=== PATIENT | male | born 1990 | race African-American/Black ===

== ENCOUNTER 2017-10-03 14:44 | Emergency (ER) | payer OTHER ==
[~2017-10-03] VITALS: Ht 185.4 cm; Wt 127.0 kg
[~2017-10-03 14:44] MED LIST: ACHD5005 PO; ALPR.5T PO; AZIT-21 PO; CEPH500C PO; CIPR500T4 PO; CYCL10TA9 PO; DICY20TA33 PO; GABA300C PO; HYDR-1231 PO; HYDR-3714 PO; HYDR-3729 PO; HYDR-757 PO; METR500T21 PO; ONDA4TAB8 PO; PRD20T PO; PRED-165; PRM25T PO; SULF1TAB35 PO; TRAM50TA2 PO
[2017-10-03 14:50] VITALS: BP 127/75
--- OUTSIDE RECORDS SUMMARY | 2017-10-03 14:50 | XMS REPORT | Referral Summary ---
Author Author [facility] Organization [facility] Address Unknown Phone Unavailable Care Team Providers Care Pet Caretaker Name Role Phone No PCP, Pt States PCP Encounter VC Date(s): 07/14/17 - 07/14/17 [facility] [address] [place] [address]- Encounter Diagnosis Presumed streptococcal pharyngitis (Discharge Diagnosis) - 07/14/17 Discharge Disposition: 01-Home or Self Care Attending Physician: Agusto Rudolph DO Admitting Physician: Agusto Rudolph DO Vital Signs Most recent to 1 oldest [Reference Range]: Temperature Oral 38.0 degC [35.8-37.3 degC] *HI* (07/14/17 11:03 AM) Peripheral Pulse 95 bpm Rate [60-100 bpm] (07/14/17 11:03 AM) Respiratory Rate 20 br/min [14-20 br/min] (07/14/17 11:03 AM) Blood Pressure 136/92 mmHg [90-140/60-90 mmHg] (07/14/17 11:03 AM) SpO2 98 % (07/14/17 11:03 AM) Problem List Condition Effective Dates Status Health Status Informant Hypertension(Confirm Active patient ed) Allergies, Adverse Reactions, Alerts No Known Allergies Medications amoxicillin 875 mg oral tablet 875 mg 1 tabs, Oral, BID, X 10 days, # 20 tabs, 0 Refill(s) Start Date: 07/14/17 Stop Date: 07/24/17 Status: Ordered Results No data available for this section Immunizations No data available for this section Procedures No data available for this section Social History Social History Type Response Smoking Status Never (less than 100 in lifetime) entered on: 04/10/17 Assessment and Plan No data available for this section
--- OUTSIDE RECORDS SUMMARY | 2017-10-03 14:50 | XMS REPORT ---
Author ARMIDA Nunez Organization [employer] Address Unknown Phone Unavailable Care Team Providers Care Pattern Checker Name Role Phone ARMIDA MENJIVAR CP Unavailable Allergies No Known Allergies Problems Problem Type Condition Code Onset Dates Condition Status Problem Diarrhea 787.91 Active Problem Generalized anxiety disorder 300.02 Active Problem Encounter for long-term (current) use of other medications V58.69 Active Problem Acute pharyngitis 462 Active Medications Medication Code System Code Instructions Start Date End Date Status Dosage Trazodone HCl [facility] [address]-13 50 MG Orally Once a day Apr 02, 2015 1 tablet at bedtime as needed Neurontin [facility] [address]-77 300 MG Orally Three times a day Apr 02, 2015 1 capsule Results No Known Results Summary Purpose [employer] Submission
--- OUTSIDE RECORDS SUMMARY | 2017-10-03 14:50 | XMS REPORT ---
Author Author ANTHONY NGO [facility] Address [address] [place] [address] Care Team Providers Care Manager Cable Name Role Phone ANTHONY NGO Unavailable PROBLEMS Type Condition ICD9-CM Code [id number] Code Onset Dates Condition Status SNOMED Code Problem Encounter for long-term (current) use of other medications V58.69 Active 915624540 Problem Diarrhea 787.91 Active 22368968 Problem Generalized anxiety disorder 300.02 Active 28618743 Problem Acute pharyngitis 462 Active 065999785 ALLERGIES Unknown Allergies SOCIAL HISTORY No smoking Hx information available PLAN OF CARE VITAL SIGNS MEDICATIONS Unknown Medications RESULTS No Results PROCEDURES No Known procedures IMMUNIZATIONS No Known Immunizations
--- OUTSIDE RECORDS SUMMARY | 2017-10-03 14:50 | XMS REPORT ---
Author Author Julia Gray Organization [facility] Address [address] [place] [id number] Care Team Providers Care Label Maker Name Role Phone Isaac Julia Unavailable PROBLEMS Type Condition ICD9-CM Code DQP75-TA Code Onset Dates Condition Status SNOMED Code Problem Borderline personality disorder F60.3 Active 68208481 Problem Substance abuse F19.10 Active 94098873 ALLERGIES No Information ENCOUNTERS Encounter Location Date Diagnosis [facility] [address] [place] [address] [phone] August, [facility] [address] [place] [address] [phone] Aug, Screening for metabolic disorder Z13.228 ; Screening for deficiency anemia Z13.0 and Screening for thyroid disorder Z13.29 [facility] [address] [place] [address] [phone] Aug, Borderline personality disorder F60.3 ; Substance abuse F19.10 ; Screening for metabolic disorder Z13.228 ; Screening for thyroid disorder Z13.29 and Screening for deficiency anemia Z13.0 [facility] [address] [place] [address] [phone] Aug, [facility] [address] [place] [address] [phone] May, Moderate recurrent major depression F33.1 [facility] [address] [place] [address] [phone] Aug, [facility] [address] [place] [address] [phone] Aug, [facility] [address] [place] [address] [phone] Aug, [facility] [address] [place] [address] [phone] Aug, [facility] [address] [place] [address] [phone] Jul, [facility] [address] [place] [address] [phone] Jul, [facility] [address] [place] [address] [phone] Jul, [facility] [address] [place] [address] [phone] Jun, [facility] [address] [place] [address] [phone] Jun, [facility] [address] [place] [address] [phone] Jun, IMMUNIZATIONS No Known Immunizations SOCIAL HISTORY Never Assessed REASON FOR VISIT aPPOINTMENT PLAN OF CARE VITAL SIGNS MEDICATIONS Unknown Medications RESULTS No Results PROCEDURES No Known procedures INSTRUCTIONS MEDICATIONS ADMINISTERED No Known Medications MEDICAL (GENERAL) HISTORY Type Description Date Medical History personality disorder Surgical History appendectomy ; 2007 Surgical History Surgery on 3rd metacarpal
--- OUTSIDE RECORDS SUMMARY | 2017-10-03 14:51 | XMS REPORT ---
Author ARMIDA Nunez Organization [employer] Address Unknown Phone Unavailable Care Team Providers Care Bead Filler Name Role Phone ARMIDA MENJIVAR CP Unavailable Allergies, Adverse Reactions, Alerts Substance Reaction Event Type N.K.D.A. Info Not Available Non Drug Allergy Problems Problem Type Condition Code Onset Dates Condition Status Problem Diarrhea 787.91 Active Problem Generalized anxiety disorder 300.02 Active Problem Encounter for long-term (current) use of other medications V58.69 Active Problem Acute pharyngitis 462 Active Assessment Neck pain, bilateral M54.2 Active Medications Medication Code System Code Instructions Start Date End Date Status Dosage Percocet [facility] [address]-71 5-325 MG Orally 4 times a day Mar 11, 2016 1 tablet as needed Cyclobenzaprine HCl [facility] [address]-47 10 mg Orally 2 times a day Mar 11, 2016 Apr 10, 2016 1 tablet PredniSONE [facility] [address]-65 20 mg Orally Once a day Mar 11, 2016 Mar 16, 2016 2 tablets Procedures Procedure Coding System Code Date Office Visit, Est Pt., Level 3 CPT-4 91526 Mar 11, 2016 Vital Signs Date/Time: Mar 11, 2016 Cardiac Monitoring Heart Rate 68 bpm Weight 254.8 lbs Height 72 in BMI 34.55 Index Blood Pressure Diastolic 78 mmHg Blood Pressure Systolic 110 mmHg Results No Known Results Summary Purpose [employer] Submission
--- OUTSIDE RECORDS SUMMARY | 2017-10-03 14:51 | XMS REPORT ---
Author ARMIDA Nunez Organization [employer] Address Unknown Phone Unavailable Care Team Providers Care Engineering Aid Name Role Phone ARMIDA MENJIVAR CP Unavailable Allergies No Known Allergies Problems Problem Type Condition Code Onset Dates Condition Status Problem Diarrhea 787.91 Active Problem Generalized anxiety disorder 300.02 Active Problem Encounter for long-term (current) use of other medications V58.69 Active Problem Acute pharyngitis 462 Active Medications Medication Code System Code Instructions Start Date End Date Status Dosage Trazodone HCl [facility] [address]-81 150 MG Orally Once a day Apr 02, 2015 1 tablet at bedtime as needed Results No Known Results Summary Purpose [employer] Submission
--- OUTSIDE RECORDS SUMMARY | 2017-10-03 14:51 | XMS REPORT | Referral Summary ---
Author Author [facility] Organization [facility] Address Unknown Phone Unavailable Care Team Providers Care Direct Marketing Executive Name Role Phone No PCP, Pt States PCP Encounter VC Date(s): 04/10/17 - 04/10/[address] [facility] [address] [place] [address] [place] Discharge Diagnosis: Boxer's fracture Discharge Disposition: 01-Home or Self Care Attending Physician: Matheus Madison MD Admitting Physician: Matheus Madison MD Vital Signs Most recent to 1 oldest [Reference Range]: Temperature Oral 36.9 degC [35.8-37.3 degC] (04/10/17 5:20 PM) Peripheral Pulse 76 bpm Rate [60-100 bpm] (04/10/17 5:20 PM) Respiratory Rate 20 br/min [14-20 br/min] (04/10/17 5:20 PM) Blood Pressure 134/79 mmHg [90-140/60-90 mmHg] (04/10/17 5:20 PM) SpO2 99 % (04/10/17 5:20 PM) Problem List Condition Effective Dates Status Health Status Informant Hypertension(Confirm Active patient ed) Allergies, Adverse Reactions, Alerts No Known Allergies Medications ibuprofen 600 mg oral tablet 600 mg 1 tabs, Oral, q8hr, sup md javi andrade, X 10 days, # 30 tabs, 0 Refill(s ) Start Date: 04/10/17 Stop Date: 04/20/17 Status: Ordered Keflex 500 mg oral capsule 500 mg 1 caps, Oral, q8hr, sup md javi andrade, X 5 days, # 15 caps, 0 Refill(s) Start Date: 04/10/17 Stop Date: 04/15/17 Status: Ordered Results No data available for this section Immunizations No data available for this section Procedures No data available for this section Social History Social History Type Response Smoking Status Never (less than 100 in lifetime) entered on: 04/10/17 Assessment and Plan No data available for this section
--- OUTSIDE RECORDS SUMMARY | 2017-10-03 14:51 | XMS REPORT ---
Author Author Humphrey Darrius Organization [facility] Address [address] [place] [address] Care Team Providers Care Core Setter Name Role Phone Darrius Yin Unavailable PROBLEMS Type Condition ICD9-CM Code [id number] Code Onset Dates Condition Status SNOMED Code Problem Borderline personality disorder F60.3 Active 84132301 Problem Substance abuse F19.10 Active 34052692 ALLERGIES No Known Allergies ENCOUNTERS Encounter Location Date Diagnosis [facility] [address] [place] [address] [phone] August, Sold [address] [place] [address] [phone] Aug, Screening for metabolic disorder Z13.228 ; Screening for deficiency anemia Z13.0 and Screening for thyroid disorder Z13.[address] [facility] [address] [place] [address] [phone] Aug, Borderline personality disorder F60.3 ; Substance abuse F19.10 ; Screening for metabolic disorder Z13.228 ; Screening for thyroid disorder Z13.29 and Screening for deficiency anemia Z13.0 [facility] [address] [place] [address] [phone] Aug, [facility] [address] [place] [address] [phone] May, Moderate recurrent major depression F33.[address] [facility] [address] [place] [address] [phone] Aug, [facility] [address] [place] [address] [phone] Aug, [facility] [address] [place] [address] [phone] Aug, [facility] [address] [place] [address] [phone] Aug, [facility] [address] [place] [address] [phone] Jul, Sold [address] [place] [address] [phone] Jul, [facility] [address] [place] [address] [phone] Jul, [facility] [address] [place] [address] [phone] Jun, [facility] [address] [place] [address] [phone] Jun, [facility] [address] [place] [address] [phone] Jun, IMMUNIZATIONS No Known Immunizations SOCIAL HISTORY Never Assessed REASON FOR VISIT Establishing care, Medication for mental health PLAN OF CARE Activity Details Follow Up 4 Weeks Reason: VITAL SIGNS Temperature 97.6 degrees Fahrenheit 2017-08-12 Heart Rate 70 /min 2017-08-12 Oximetry 96 % 2017-08-12 Weight 288 lbs 2017-08-12 Height 71 in 2017-08-12 BMI 40.16 kg/m2 2017-08-12 Blood pressure systolic 124 mm Hg 2017-08-12 Blood pressure diastolic 83 mm Hg 2017-08-12 MEDICATIONS Medication Instructions Dosage Frequency Start Date End Date Duration Status Invega 6 MG Orally Once a day 24h Aug, 30 day(s) Active Invega 3 MG Orally Once a day 1 tablet in the morning 24h Aug, 30 day(s) Active RESULTS No Results PROCEDURES Procedure Date Ordered Result Body Site BEHAV CHNG SMOKING 3-10 MIN August 12, 2017 INSTRUCTIONS MEDICATIONS ADMINISTERED No Known Medications MEDICAL (GENERAL) HISTORY Type Description Date Medical History personality disorder Surgical History appendectomy ; 2007 Surgical History Surgery on 3rd metacarpal
--- OUTSIDE RECORDS SUMMARY | 2017-10-03 14:51 | XMS REPORT ---
Author Author DEXTER MORROW [facility] Address [address] [place] [address] Care Team Providers Care Chip Bin Operator Name Role Phone DEXTER MORROW Unavailable PROBLEMS Type Condition ICD9-CM Code FRG68-LN Code Onset Dates Condition Status SNOMED Code Problem Generalized anxiety disorder 300.02 Active 74822518 Problem Acute pharyngitis 462 Active 994510678 Problem Diarrhea 787.91 Active 05547598 Problem Encounter for long-term (current) use of other medications V58.69 Active 787112427 ALLERGIES No Information SOCIAL HISTORY Never Assessed PLAN OF CARE VITAL SIGNS MEDICATIONS Medication Instructions Dosage Frequency Start Date End Date Duration Status Percocet 5-325 MG Orally 4 times a day 1 tablet as needed 6h Mar, Active Cyclobenzaprine HCl 10 mg Orally 2 times a day 1 tablet 12h Mar, Apr, 30 day(s) Active RESULTS No Results PROCEDURES No Known procedures IMMUNIZATIONS No Known Immunizations MEDICAL (GENERAL) HISTORY Type Description Date Medical History neck strain Surgical History appendectomy 2009 Hospitalization History Intentional Aspirin overdose-[facility] 04/17/16
--- OUTSIDE RECORDS SUMMARY | 2017-10-03 14:51 | XMS REPORT ---
Author Author ARMIDA MENJIVAR [facility] Address [address] [place] [address] Care Team Providers Care Accounting Supervisor Name Role Phone ARMIDA MENJIVAR Unavailable PROBLEMS Type Condition ICD9-CM Code [id number] Code Onset Dates Condition Status SNOMED Code Problem Encounter for long-term (current) use of other medications V58.69 Active 786690103 Problem Diarrhea 787.91 Active 66001400 Problem Generalized anxiety disorder 300.02 Active 23747238 Problem Acute pharyngitis 462 Active 060590914 ALLERGIES Unknown Allergies SOCIAL HISTORY No smoking Hx information available PLAN OF CARE VITAL SIGNS MEDICATIONS Unknown Medications RESULTS No Results PROCEDURES No Known procedures IMMUNIZATIONS No Known Immunizations
--- OUTSIDE RECORDS SUMMARY | 2017-10-03 14:52 | XMS REPORT ---
Author ARMIDA Nunez Organization [employer] Address Unknown Phone Unavailable Care Team Providers Care Lockstitch Zipper Setter Name Role Phone ARMIDA MENJIVAR CP Unavailable Allergies No Known Allergies Problems Problem Type Condition Code Onset Dates Condition Status Problem Diarrhea 787.91 Active Problem Generalized anxiety disorder 300.02 Active Problem Encounter for long-term (current) use of other medications V58.69 Active Problem Acute pharyngitis 462 Active Medications Medication Code System Code Instructions Start Date End Date Status Dosage Neurontin [facility] [address]-00 600 MG Orally Three times a day Apr 02, 2015 1 capsule Results No Known Results Summary Purpose [employer] Submission
--- OUTSIDE RECORDS SUMMARY | 2017-10-03 14:52 | XMS REPORT | Referral Summary ---
Author Author [facility] Organization [facility] Address Unknown Phone Unavailable Care Team Providers Care Tube Cutter Operator Name Role Phone Darrius Yin PCP No PCP, Pt States PCP Encounter [facility] [id number] Date(s): 08/26/17 - 08/26/17 [facility] [address] [place] [address] Encounter Diagnosis Contusion of right hand (Discharge Diagnosis) - 08/26/17 Discharge Disposition: 01-Home or Self Care Attending Physician: Matheus Madison MD Admitting Physician: Matheus Madison MD Vital Signs Most recent to 1 oldest [Reference Range]: Temperature Oral 36.6 degC [35.8-37.3 degC] (08/26/17 11:28 AM) Peripheral Pulse 79 bpm Rate [60-100 bpm] (08/26/17 1:08 PM) Respiratory Rate 20 br/min [14-20 br/min] (08/26/17 1:08 PM) Blood Pressure 118/73 mmHg [90-140/60-90 mmHg] (08/26/17 1:08 PM) SpO2 99 % (08/26/17 1:08 PM) Problem List Condition Effective Dates Status Health Status Informant Hypertension(Confirm Active patient ed) Allergies, Adverse Reactions, Alerts No Known Allergies Medications ibuprofen 800 mg oral tablet 800 mg 1 tabs, Oral, q8hr, as needed for pain, X 7 days, # 21 tabs, 0 Refill(s) Start Date: 08/26/17 Stop Date: 09/02/17 Status: Ordered Ultram 50 mg oral tablet 50 mg 1 tabs, Oral, q6hr, as needed for pain, X 5 days, # 12 tabs, 0 Refill(s) Start Date: 08/26/17 Stop Date: 08/31/17 Status: Ordered Results No data available for this section Immunizations No data available for this section Procedures No data available for this section Social History Social History Type Response Smoking Status Never (less than 100 in lifetime) entered on: 04/10/17 Assessment and Plan No data available for this section
--- OUTSIDE RECORDS SUMMARY | 2017-10-03 14:52 | XMS REPORT ---
Author Author BROCK DISLA [facility] [employer] Address Unknown Phone Unavailable Care Team Providers Care Health Sciences Manager Name Role Phone BROCK DISLA CP Unavailable Allergies, Adverse Reactions, Alerts Substance Reaction Event Type N.K.D.A. Info Not Available Non Drug Allergy Problems Problem Type Condition Code Onset Dates Condition Status Problem Diarrhea 787.91 Active Problem Generalized anxiety disorder 300.02 Active Problem Encounter for long-term (current) use of other medications V58.69 Active Problem Acute pharyngitis 462 Active Assessment Cervical strain, sequela S16.1XXS Active Medications Medication Code System Code Instructions Start Date End Date Status Dosage Cyclobenzaprine HCl [facility] [address]-43 10 mg Orally 2 times a day Mar 11, 2016 Apr 10, 2016 1 tablet Tramadol HCl [facility] [address]-26 50 mg Orally every 4 hrs Mar 17, 2016 1 tablet as needed Procedures Procedure Coding System Code Date Office Visit, Est Pt., Level 2 CPT-4 87805 Mar 17, 2016 Vital Signs Date/Time: Mar 17, 2016 Cardiac Monitoring Heart Rate 68 bpm Weight 257 lbs Height 72 in BMI 34.85 Index Blood Pressure Diastolic 70 mmHg Blood Pressure Systolic 110 mmHg Results No Known Results Summary Purpose [employer] Submission
--- OUTSIDE RECORDS SUMMARY | 2017-10-03 14:52 | XMS REPORT ---
Author Author ARMIDA MENJIVAR Organization [employer] Address Unknown Phone Unavailable Care Team Providers Care Estimator Name Role Phone ARMIDA MENJIVAR CP Unavailable Allergies No Known Allergies Problems Problem Type Condition Code Onset Dates Condition Status Problem Diarrhea 787.91 Active Problem Generalized anxiety disorder 300.02 Active Problem Encounter for long-term (current) use of other medications V58.69 Active Assessment Mood disorder F39 Active Problem Acute pharyngitis 462 Active Assessment Finger laceration, initial encounter S61.219A Active Medications Medication Code System Code Instructions Start Date End Date Status Dosage Bactrim DS [facility] [address]-08 800-160 MG Orally 2 times a day Mar 26, 2015 Apr 05, 2015 1 tablet Procedures Procedure Coding System Code Date Office Visit, Est Pt., Level 2 CPT-4 30628 Mar 26, 2015 Vital Signs Date/Time: Mar 26, 2015 Cardiac Monitoring Heart Rate 60 bpm Weight 262 lbs Height 72 in BMI 35.53 Index Blood Pressure Diastolic 76 mmHg Blood Pressure Systolic 110 mmHg Results No Known Results Summary Purpose [employer] Submission
--- OUTSIDE RECORDS SUMMARY | 2017-10-03 14:52 | XMS REPORT ---
Author Author ANTHONY NGO [facility] Address [address] [place] [address] Care Team Providers Care Hollow Tile Partition Erector Name Role Phone ANTHONY NGO Unavailable PROBLEMS Type Condition ICD9-CM Code JKE55-FJ Code Onset Dates Condition Status SNOMED Code Problem Encounter for long-term (current) use of other medications V58.69 Active 668682605 Problem Diarrhea 787.91 Active 05657756 Problem Generalized anxiety disorder 300.02 Active 04704461 Problem Acute pharyngitis 462 Active 775046769 ALLERGIES Unknown Allergies SOCIAL HISTORY No smoking Hx information available PLAN OF CARE VITAL SIGNS MEDICATIONS Unknown Medications RESULTS No Results PROCEDURES No Known procedures IMMUNIZATIONS No Known Immunizations
--- OUTSIDE RECORDS SUMMARY | 2017-10-03 14:52 | XMS REPORT ---
Author ARMIDA Nunez Organization [employer] Address Unknown Phone Unavailable Care Team Providers Care Case Monitor Name Role Phone ARMIDA MENJIVAR CP Unavailable Allergies No Known Allergies Problems Problem Type Condition Code Onset Dates Condition Status Problem Diarrhea 787.91 Active Problem Generalized anxiety disorder 300.02 Active Problem Encounter for long-term (current) use of other medications V58.69 Active Problem Acute pharyngitis 462 Active Medications Medication Code System Code Instructions Start Date End Date Status Dosage Trazodone HCl [facility] [address]-79 100 MG Orally Once a day Apr 02, 2015 1 tablet at bedtime as needed Results No Known Results Summary Purpose [employer] Submission
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
[2017-10-03] MEDS ORDERED: PALI3TAB2 PO (15:08)
[2017-10-03] MEDS ORDERED: PALI3TAB5 (15:08)
[2017-10-03] MEDS ORDERED: GENTAMICIN 0.3% OPHTH SOLN 5 ML ONE (15:09)
[2017-10-03] MEDS ORDERED: RX-GENTAMICIN 0.3% OP OINT 3.5 GM TUBE ONE (15:10)
--- NOTE | 2017-10-03 15:15 | ED EENT ---
History of Present Illness General Chief Complaint: Eye Problems Stated Complaint: EYE REDNESS AND PAIN LEFT EYE Nursing Triage Note: PT CO OF L EYE PAIN. DENIES INJURY, SENSITIVE TO LIGHT, L EYE REDDEND Source: patient Exam Limitations: no limitations History of Present Illness Date Seen by Provider: Oct 03, 2017 Time Seen by Provider: 15:09 Initial Comments The patient is a 26-year-old black male who reports that yesterday afternoon his left eye became sensitive and teared. He was at work but reports he had no sense of foreign body he had difficulty sleeping but this morning when he awakened he reported sticky creamy material in the eye. The right eye is less involved. Timing/Duration: yesterday Location: eye (R), eye (L) Prearrival Treatment: no prearrival treatment Allergies and Home Medications Allergies Coded Allergies: No Known Drug Allergies (Unverified , 01/12/09) Patient Home Medication List Home Medication List Reviewed: Yes Review of Systems Constitutional: see HPI Eyes: See HPI, Inflammation, Photophobia Ears: No Symptoms Reported Nose: no symptoms reported Mouth: no symptoms reported Throat: no symptoms reported Respiratory: no symptoms reported Cardiovascular: no symptoms reported Gastrointestinal: no symptoms reported Musculoskeletal: no symptoms reported Skin: no symptoms reported Neurological: No Symptoms Reported Hematologic/Lymphatic: No Symptoms Reported Immunological/Allergic: no symptoms reported Past Utraifs-Crudzo-Gnttaq Hx Patient Social History Alcohol Use: Denies Use Recreational Drug Use: No (MJ, METH, MORPHINE, OXYCONTIN, XANAX) Type Used: Cigarettes Recent Foreign Travel: No Contact w/Someone Who Travel: No Recent Infectious Disease Expo: No Recent Hopitalizations: No Physical Abuse: No Sexual Abuse: No Immunizations Up To Date Tetanus Booster (TDap): Less than 5yrs PED Vaccines UTD: Yes Seasonal Allergies Seasonal Allergies: Yes Past Medical History Surgeries: Yes (DENTAL, RT HAND) Appendectomy, Orthopedic Respiratory: Yes Asthma Currently Using CPAP: No Currently Using BIPAP: No Cardiac: No Neurological: Yes (Multiple head injuries from Football injuries) Gastrointestinal: Yes (Abdominal pain and blood in stools since Wednesday) Gastroesophageal Reflux Musculoskeletal: Yes (chronic back and neck pain) Chronic Back Pain Endocrine: No Cancer: No Psychosocial: Yes (bipolar 2, ADHD, impulse control disorder) ADD/ADHD, Anxiety, Suicide Attempts, Bipolar, Depression Nursing Suicide Risk Score: 0 Integumentary: No Blood Disorders: No Adverse Reaction/Blood Tranf: No Family Medical History Prostate cancer Grandfather Thyroid disease 19 MOTHER No Pertinent Family Hx Physical Exam Vital Signs Vital Signs - First Documented 10/03/17 14:50 Temp 97.6 Pulse 83 Resp 18 B/P (MAP) 127/75 (92) Pulse Ox 98 General Appearance: mild distress Eyes: bilateral eye conjunctival inflammation Nose: normal inspection Mouth/Throat: normal mouth inspection Cardiovascular: normal peripheral pulses, regular rate, rhythm, no edema, no gallop, no JVD, no murmur Respiratory: chest non-tender, lungs clear, normal breath sounds, no respiratory distress, no accessory muscle use There was a generalized erythema of the whites of the eyes left greater than right. The anterior chamber and lens were clear. Progress/Results/Core Measures Results/Orders Vital Signs/I&O 10/03/17 14:50 Temp 97.6 Pulse 83 Resp 18 B/P (MAP) 127/75 (92) Pulse Ox 98 Blood Pressure Mean: 92 Departure Impression Primary Impression: conjunctivitis Disposition: 01 HOME, SELF-CARE Condition: Stable/Unchanged Departure-Patient Inst. Decision time for Depature: 15:14 Referrals: [facility][1[facility] (PCP/Family) Primary Care Physician Add. Discharge Instructions: All discharge instructions reviewed with patient and/or family. Voiced understanding. Use the Gen TAC ointment as I demonstrated 4 times daily. Keeping her eyes closed and with a cool washcloth will be soothing. If you are not significantly better tomorrow you should see one of the local key filer for a more in-depth evaluation ESTHER COON MD Oct 03, 2017 15:15
== END 2017-10-03 15:50 | disposition home or self-care (01) ==
LOC: EDUNIT# 14:44 → ER 14:47
DX: H10.9 Unspecified conjunctivitis (principal); J45.909 Unspecified asthma, uncomplicated; K21.9 Gastro-esophageal reflux disease without esophagitis; F31.9 Bipolar disorder, unspecified; F90.9 Attention-deficit hyperactivity disorder, unspecified type; F41.9 Anxiety disorder, unspecified; Z80.42 Family history of malignant neoplasm of prostate; Z91.5 Personal history of self-harm; Z90.89 Acquired absence of other organs
CPT/HCPCS: 99282

== ENCOUNTER 2017-11-30 18:42 | Emergency (ER) | payer OTHER ==
[~2017-11-30 18:42] MED LIST changes: +PALI3TAB2 PO; +PALI3TAB5
--- OUTSIDE RECORDS SUMMARY | 2017-11-30 18:50 | XMS REPORT ---
Author Author Darrius Yin [facility] Address [address] [place] [address] Care Team Providers Care Nitrocellulose Maker Name Role Phone Darrius Yin Unavailable PROBLEMS Type Condition ICD9-CM Code GRQ20-CO Code Onset Dates Condition Status SNOMED Code Problem Borderline personality disorder F60.3 Active 09475664 Problem Substance abuse F19.10 Active 05082073 ALLERGIES No Information ENCOUNTERS Encounter Location Date Diagnosis [facility] [address] [place] [address] [id number] Oct, [facility] [address] [place] [address] [id number] Aug, Screening for metabolic disorder Z13.228 ; Screening for deficiency anemia Z13.0 and Screening for thyroid disorder Z13.29 [facility] [address] [place] [address] [id number] Aug, Borderline personality disorder F60.3 ; Substance abuse F19.10 ; Screening for metabolic disorder Z13.228 ; Screening for thyroid disorder Z13.29 and Screening for deficiency anemia Z13.0 [facility] [address] [place] [address] [id number] Aug, [facility] [address] [place] [address] [id number] May, Moderate recurrent major depression F33.1 [facility] [address] [place] [address] [id number] Aug, [facility] [address] [place] [address] [id number] Aug, [facility] [address] [place] [address] [id number] Aug, [facility] [address] [place] [address] [id number] Aug, [facility] [address] [place] [address] [id number] Jul, [facility] [address] [place] [address] [id number] Jul, [employer] [address] [place] [address] [id number] Jul, [facility] [address] [place] [address] [id number] Jun, [employer] [address] [place] [address] [id number] Jun, [facility] [address] [place] [address] [id number] Jun, IMMUNIZATIONS No Known Immunizations SOCIAL HISTORY Never Assessed REASON FOR VISIT medical records PLAN OF CARE VITAL SIGNS MEDICATIONS Unknown Medications RESULTS No Results PROCEDURES No Known procedures INSTRUCTIONS MEDICATIONS ADMINISTERED No Known Medications MEDICAL (GENERAL) HISTORY Type Description Date Medical History personality disorder Surgical History appendectomy ; 2007 Surgical History Surgery on 3rd metacarpal
== END 2017-11-30 19:20 | disposition left against medical advice (07) ==
LOC: EDUNIT# 18:42 → ER 18:44
DX: H57.12 Ocular pain, left eye (principal)

== ENCOUNTER 2018-01-10 01:24 | Emergency (ER) | payer OTHER ==
[~2018-01-10 01:24] MED LIST changes: +HYDR-4226 PO
--- OUTSIDE RECORDS SUMMARY | 2018-01-10 01:30 | XMS REPORT ---
Author Author BROCK DISLA Organization [facility] Address [address] [place] [address] Care Team Providers Care Sterile Process Tech Name Role Phone BROCK DISLA Unavailable PROBLEMS Type Condition ICD9-CM Code LPO47-TA Code Onset Dates Condition Status SNOMED Code Problem Delusional disorder F22 Active [id number] ALLERGIES No Information ENCOUNTERS Encounter Location Date Diagnosis [facility] [id number] [place] [address] 85206- 7769 Oct, Delusional disorder F22 [facility] [id number] [place] [address] 05134- 6974 Oct, Delusional disorder F22 [facility] [id number] [place] [address] 65123- 7804 Apr, [facility] [id number] [place] [address] 05163- 7148 Apr, [facility] [id number] [place] [address] 33732- 5423 Apr, [facility] [id number] [place] [address] 85712- 2280 Mar, Cervical strain, sequela S16.1XXS [facility] [id number] [place] [address] 51948 -3919 Mar, [facility] [id number] [place] [address] 77164 -5143 Mar, Neck pain, bilateral M54.2 [facility] [id number] [place] [address] 38473- 5806 Aug, [facility] [address] [phone] Jul, Abscess of axilla, left L02.412 and Generalized anxiety disorder F41.1 [facility] [address], [place] [address] 59[address] May, [facility] [address] [place] [address] [id number]- 6125 Apr, [facility] [address] [place] [address] 10739- 1922 Apr, [facility] [id number] [place] [address] 65167- 3330 Mar, Finger laceration, initial encounter S61.219A and Mood disorder F39 [facility] [address] [id number] Oct, Dental examination V72.2 [facility] [address] [place] [address] 96886- 0709 Oct, [facility] [address] [place] [address] 82056- 8751 Oct, [facility] [address] [place] [address] 54347- 4641 14 Aug, 2014 [facility] [address], [place] [address] 27[address] Aug, [facility] [address], [place] [address] 3946 Apr, [facility] [address], [place] [address] 0294 Apr, [facility] [address], [place] [address] 6006 Apr, [facility] [address], [place] [address] 5832 Apr, [facility] [address], [place] [address] 3034 Apr, [facility] [id number] [place] [address] 5122 Mar, [facility] [address] [id number] [place] [address] 6397 Mar, [facility] [place] [facility] [address] [id number] [place] [address] Jan, [facility] [place] [facility] [address] [id number] [place] [address] Jan, [facility] [place] [facility] [address] [id number] [place] [address]- 3214 Jan, [facility] [place] [facility] [address] [id number] [place] [address]- 1435 Oct, [facility] [place] [facility] [address] [id number] [place] [address]- 1483 Oct, [facility] [place] [facility] [address] [id number] [place] [address]- 1566 May, [facility] [place] [facility] [address] [id number] [place] [address]- 5558 Mar, [facility] [place] [facility] [address] [id number] [place] [address]- 4748 Mar, [facility] [place] [facility] [address] [id number] [place] [address]- 5742 Jan, [facility] [place] [facility] [address] [id number] [place] [address]- 4844 Jan, [facility] [place] [facility] [address] [id number] [place] [address]- 8760 Jan, [facility] [place] [facility] [address] [id number] [place] [address] 1985 Jan, [facility] [place] [facility] [address] [id number] [place] [address]- 8756 Jan, [facility] [place] [facility] [address] [id number] [place] [address]- 2659 Jan, [facility] [place] [facility] [address] [id number] [place] [address]- 1110 27 Jan, 2012 [facility] [place] [facility] [address] [id number] [place] [address]- 4710 26 Jan, 2012 [facility] [place] [facility] [address] [id number] [place] [address]- 4170 18 Nov, 2011 [facility] [place] [facility] [address] [id number] [place] [address]- 8762 17 Nov, 2011 [facility] [address] [id number] [place] [address]- 5934 16 Nov, 2011 [facility] [place] [facility] [address] [id number] [place] [address]- 3992 Oct, [facility] [place] [facility] [address] [id number] [place] [address]- 3754 Oct, [facility] [place] [facility] [address] [id number] [place] [address]- 8326 August, [facility] [place] [facility] [address] [id number] [place] [address]- 8948 August, [facility] [place] [facility] [address] [id number] [place] [address]- 7876 Aug, [facility] [place] [facility] [address] [id number] [place] [address]- 9820 Jul, [facility] [place] [facility] [address] [id number] [place] [address]- 2740 Jul, [facility] [place] [facility] [address] [id number] [place] [address]- 5404 Jul, [facility] [place] [facility] [address] [id number] [place] [address]- 3356 Oct, [facility] [place] [facility] [address] [id number] [place] [address]- 6351 Aug, [facility] [place] [facility] [address] [id number] [address] 2546 Jun, [facility] [address], [place] [address]- 0836 Apr, [facility] [address], [place] [address] 2546 Apr, [facility] [address], [place] [address] 2546 Mar, [facility] [address], [place] [address]- 2546 Mar, [facility] [address], [place] [address]- 2346 Jan, [facility] [address], [place] [address] 2546 Jan, [facility] [address], [place] [address]- 8490 Apr, [facility] [id number], [place] [address] 2541 Jan, IMMUNIZATIONS No Known Immunizations SOCIAL HISTORY Never Assessed REASON FOR VISIT PLAN OF CARE VITAL SIGNS MEDICATIONS Medication Instructions Dosage Frequency Start Date End Date Duration Status Invega 3 MG Orally Once a day 1 tablet in the morning 24h Active RESULTS No Results PROCEDURES No Known procedures INSTRUCTIONS MEDICATIONS ADMINISTERED No Known Medications MEDICAL (GENERAL) HISTORY Type Description Date Medical History neck strain Surgical History appendectomy 2008 Surgical History pin in 3rd metacarpal in R hand 2016 Hospitalization History Intentional Aspirin overdose-[facility] 04/17/16
--- OUTSIDE RECORDS SUMMARY | 2018-01-10 01:30 | XMS REPORT ---
Author Author BROCK DISLA Organization [facility] Address [address] [place] [address] Care Team Providers Care Counter Clerk Tractor Parts Name Role Phone BROCK DISLA Unavailable PROBLEMS Type Condition ICD9-CM Code TAM84-XX Code Onset Dates Condition Status SNOMED Code Problem Delusional disorder F22 Active [id number] ALLERGIES No Known Allergies ENCOUNTERS Encounter Location Date Diagnosis [facility] [id number] [place] [address] 17247- 0325 Oct, Delusional disorder F22 [facility] [id number] [place] [address] 85669- 6051 Oct, Delusional disorder F22 [facility] [id number] [place] [address] 35423- 9947 Apr, [facility] [id number] [place] [address] 73330- 6148 Apr, [facility] [id number] [place] [address] 36842- 8251 Apr, [facility] [id number] [place] [address] 05807- 1355 Mar, Cervical strain, sequela S16.1XXS [facility] [id number] [place] [address] 15779 -3861 Mar, [facility] [id number] [place] [address] 99181 -2098 Mar, Neck pain, bilateral M54.2 [facility] [id number] [place] [address] 86795- 7632 Aug, [facility] [address] [place] [id number] Jul, Abscess of axilla, left L02.412 and Generalized anxiety disorder F41.1 [facility] [address], [place] [address]- 9754 May, [facility] [address] [place] [address] 17513- 5604 Apr, [facility] [address] [place] [address] 15511- 3504 Apr, [facility] [id number] [place] [address] 39045- 8604 Mar, Finger laceration, initial encounter S61.219A and Mood disorder F39 [facility] [address] [id number] Oct, Dental examination V72.2 [facility] [address] [place] [address] 95227- 3169 Oct, [facility] [address] [place] [address] 98319- 9337 Oct, [facility] [address] [place] [address] 26491- 7060 14 Aug, 2014 [facility] [address], [place] [address]- 0285 Aug, [facility] [address], [place] [address]- 1072 Apr, [facility] [address], [place] [address]- 6340 Apr, [facility] [address], [place] [address]- 8261 Apr, [facility] [address], [place] [address]- 7177 Apr, [facility] [address], [place] [address]- 3494 Apr, [facility] [address] [place] [address]- 4978 Mar, [facility] [address] [id number] [place] [address]- 3866 Mar, [facility] [place] [facility] [address] [id number] [place] [address]708 Jan, [facility] [address] [id number] [place] [address]- 2543 Jan, [facility] [place] [facility] [address] [id number] [place] [address]- 1369 Jan, [facility] [address] [id number] [place] [address]- 9331 Oct, [facility] [place] [facility] [address] [id number] [place] [address]- 9823 Oct, [facility] [place] [facility] [address] [id number] [place] [address]- 6231 May, [facility] [address] [id number] [place] [address]- 4510 Mar, [facility] [place] [facility] [address] [id number] [place] [address]- 8348 Mar, [facility] [address] [id number] [place] [address]- 1796 Jan, [facility] [place] [facility] [address] [id number] [place] [address]- 0997 Jan, [facility] [place] [facility] [address] [id number] [place] [address]- 4165 Jan, [facility] [place] [facility] [address] [id number] [place] [address]- 7097 Jan, [facility] [place] [facility] [address] [id number] [place] 9584 Jan, [facility] [place] [facility] [address] [id number] [place] 9664 Jan, [facility] [address] [id number] [place] [address]- 5664 27 Jan, 2012 [facility] [place] [facility] [address] [id number] [place] [address]- 8446 26 Jan, 2012 [facility] [place] [facility] [address] [id number] [place] [address]- 1503 18 Nov, 2011 [facility] [place] [facility] [address] [id number] [place] [address]- 7286 17 Nov, 2011 [facility] [place] [facility] [address] [id number] [place] [address]- 3555 16 Nov, 2011 [facility] [place] [facility] [address] [id number] [place] [address]- 0266 Oct, [facility] [place] [facility] [address] [id number] [place] [address]- 7326 Oct, [facility] [place] [facility] [address] [id number] [place] [address]- 6846 August, [facility] [place] [facility] [address] [id number] [place] [address]- 7870 August, [facility] [place] [facility] [address] [id number] [place] [address]- 8084 Aug, [facility] [place] [facility] [address] [id number] [place] [address]- 9896 Jul, [facility] [place] [facility] [address] [id number], [place] [address]- 7441 Jul, [facility] [place] [facility] [address] [id number] [place] [address]- 3619 Jul, [facility] [place] [facility] [address] [id number] [place] [address]- 1916 Oct, [facility] [place] [facility] [address] [id number] [place] [address]- 4847 Aug, [facility] [place] [facility] [address] [id number], [place] [address] 2546 Jun, [facility] [address], [place] [address]- 2646 Apr, [facility] [address], [place] [address] 2546 Apr, [facility] [address], [place] [address]- 6096 Mar, [facility] [address] [place] [address] 93273- 7416 Mar, [facility] [address] [place] [address] 66994- 0718 Jan, [facility] [address], [place] [address] 2546 Jan, [facility] [address], [place] [address]- 3777 Apr, [facility] [address], [place] [address]- 7146 Jan, IMMUNIZATIONS No Known Immunizations SOCIAL HISTORY Never Assessed REASON FOR VISIT Establish Care Pt c/o needing med refills on invega THOMAS Ricks PLAN OF CARE Activity Details Follow Up 3 Months Reason: VITAL SIGNS Height 72 in 2017-11-12 Weight 270.8 lbs 2017-11-12 Temperature 97.9 degrees Fahrenheit 2017-11-12 Heart Rate 88 bpm 2017-11-12 Respiratory Rate 18 2017-11-12 BMI 36.72 kg/m2 2017-11-12 Blood pressure systolic 122 mmHg 2017-11-12 Blood pressure diastolic 72 mmHg 2017-11-12 MEDICATIONS Medication Instructions Dosage Frequency Start Date End Date Duration Status Neurontin 600 MG Orally Three times a day 1 capsule 8h Apr, 30 day(s) Not-Taking Invega 6 MG Orally Once a day 1 tablet in the morning 24h Active Invega 3 MG Orally Once a day 1 tablet in the morning 24h Active Trazodone HCl 150 MG Orally Once a day 1 tablet at bedtime as needed 24h Apr, Not-Taking RESULTS No Results PROCEDURES No Known procedures INSTRUCTIONS MEDICATIONS ADMINISTERED No Known Medications MEDICAL (GENERAL) HISTORY Type Description Date Medical History neck strain Surgical History appendectomy 2008 Surgical History pin in 3rd metacarpal in R hand 2016 Hospitalization History Intentional Aspirin overdose-[facility] 04/17/16
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
[2018-02-03] MEDS ORDERED: ALBU18HF2 IH (11:55)
== END 2018-01-10 01:42 | disposition left against medical advice (07) ==
LOC: EDUNIT# 01:24 → ER 01:25
DX: M79.641 Pain in right hand (principal)

== ENCOUNTER 2018-02-01 22:54 | Inpatient (IN) | payer OTHER ==
[~2018-02-01] VITALS: Ht 185.4 cm; Wt 123.8 kg
[2018-02-01] MEDS ORDERED: NS IV 1000 ML 2,000 ML ONE (23:05)
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
[2018-02-01 23:14] LABS: BASOPHILS % (AUTO) 0 % (0-10); EOSINOPHILS # (AUTO) 0.4 10^3/uL (0.0-0.3); EOSINOPHILS % (AUTO) 3 % (0-10); HEMATOCRIT 43 % (40-54); HEMOGLOBIN 15.4 G/DL (13.3-17.7); LYMPHOCYTES # (AUTO) 2.7 X 10^3 (1.0-4.0); LYMPHOCYTES % (AUTO) 19 % (12-44); MEAN CORPUSCULAR HEMOGLOBIN 28 PG (25-34); MEAN CORPUSCULAR HGB CONC 36 G/DL (32-36); MEAN CORPUSCULAR VOLUME 78 FL (80-99); MEAN PLATELET VOLUME 10.3 FL (7.4-10.4); MONOCYTES # (AUTO) 1.1 X 10^3 (0.0-1.0); MONOCYTES % (AUTO) 8 % (0-12); NEUTROPHILS # (AUTO) 9.7 X 10^3 (1.8-7.8); NEUTROPHILS % (AUTO) 70 % (42-75); PLATELET COUNT 262 10^3/uL (130-400); RED BLOOD COUNT 5.48 10^6/uL (4.35-5.85); RED CELL DISTRIBUTION WIDTH 13.3 % (10.0-14.5); WHITE BLOOD COUNT 13.9 10^3/uL (4.3-11.0)
[2018-02-01 23:19] LABS: BILIRUBIN,URINE NEGATIVE (NEGATIVE); CLARITY,URINE CLEAR; COLOR,URINE YELLOW; GLUCOSE, URINE (UA) NEGATIVE (NEGATIVE); KETONES,URINE NEGATIVE (NEGATIVE); LEUKOCYTE ESTERASE ,URINE NEGATIVE (NEGATIVE); NITRITE,URINE NEGATIVE (NEGATIVE); PH,URINE 7 (5-9); PROTEIN,URINE NEGATIVE (NEGATIVE); UROBILINOGEN,URINE NORMAL (NORMAL)
[2018-02-01] MEDS: NS IV 1000 ML 1,000 ML IV SCH ×2 (23:19→23:20)
[2018-02-01 23:27] LABS: BACTERIA,URINE NEGATIVE /HPF
[2018-02-01] MEDS ORDERED: ACTIVATED CHARCOAL/SORBITOL 50 G/240 ML BTL PO ONE (23:30)
[2018-02-01 23:32] LABS: ALANINE AMINOTRANSFERASE 40 U/L (0-55); ALKALINE PHOSPHATASE 63 U/L (40-136); BILIRUBIN,TOTAL 0.2 MG/DL (0.1-1.0); BUN/CREATININE RATIO 8; CALCIUM 10.1 MG/DL (8.5-10.1); CARBON DIOXIDE 20 MMOL/L (21-32); CHLORIDE 104 MMOL/L (98-107); CREATININE SERUM 1.04 MG/DL (0.60-1.30); GFR ESTIMATED > 60; GLUCOSE 101 MG/DL (70-105); POTASSIUM 3.6 MMOL/L (3.6-5.0); SODIUM 142 MMOL/L (135-145); TOTAL PROTEIN 8.7 GM/DL (6.4-8.2)
[2018-02-01 23:33] LABS: AMPHETAMINE SCREEN, URINE POSITIVE (NEGATIVE); BARBITURATE SCREEN URINE NEGATIVE (NEGATIVE); BENZODIAZEPINES SCREEN URINE NEGATIVE (NEGATIVE); CANNABINOID SCREEN, URINE NEGATIVE (NEGATIVE); COCAINE SCREEN URINE NEGATIVE (NEGATIVE); METHADONE STAT NEGATIVE (NEGATIVE); METHAMPHETAMINE SCREEN URINE S POSITIVE (NEGATIVE); OPIATE SCREEN URINE NEGATIVE (NEGATIVE); OXYCODONE STAT NEGATIVE (NEGATIVE); PROPOXYPHENE STAT NEGATIVE (NEGATIVE); TRICYCLIC ANTIDEPRESSANTS SCRE NEGATIVE (NEGATIVE)
[2018-02-01 23:38] LABS: ACETAMINOPHEN < 10 UG/ML (10-30)
[2018-02-01 23:39] LABS: SALICYLATE 68.9 MG/DL (5.0-20.0)
[2018-02-02] VITALS (27 sets, daily range): BP systolic 122–151; BP diastolic 60–101
[2018-02-02] MEDS ORDERED: D5W 1000 ML IV SOLUTION 1,000 ML ONE (00:04)
[2018-02-02] MEDS ORDERED: SODIUM BICARB 8.4% 50 MEQ/50 ML (ABBOTT) SYR ONE (00:04)
--- NOTE | 2018-02-02 00:04 | ED Psychosocial ---
General Chief Complaint: Overdose Stated Complaint: TOOK 100 325 ASP Nursing Triage Note: PT PRESENTS TO ER WITH COMPLAINT OF OVERDOSE. PT STATES AROUND 1900 HE TOOK APPROXIMATELY 100 325MG ASPIRIN, STATES HE INTENDED TO KILL HIMSELF. STATES AFTER TAKING THE MEDICINE HE WENT TO WORK AND TOLD HIS BOSS, WHO TOLD HIM TO THINK OF HIS CHILDREN. PT DECIDED TO SEEK OUT HELP. PT STATES HE ALSO SMOKES METH AND MARIJUANA, STATES HE USED EARLIER TODAY. PT IS TEARFUL AND ANXIOUS UPON ARRIVAL TO ER. STATES MULTIPLE THINGS IN HIS LIFE CAUSED HIM TO ACT ON HIS SUICIDAL THOUGHTS. PT ALSO STATES HE IS ABOUT 1.5 WEEKS LATE ON HIS INVEGA INJECTION. Source: patient Exam Limitations: no limitations History of Present Illness Date Seen by Provider: Feb 01, 2018 Time Seen by Provider: 23:02 Initial Comments Here with report of taking approximately 100 aspirin 325 mg dose in attempt to kill himself at approximately 7 p.m. tonight. Arrives with report of the overdose after talking to his boss. He is sweating and anxious. Patient has had previous overdose attempt. He admits to using methamphetamine and marijuana and states that that is part of the problem as he can't overcome his addiction and he is very sad about his situation. Denies nausea or vomiting. Denies diarrhea. Timing/Duration: this evening Severity: moderate, severe Associated Symptoms: anxiety, ingestion, suicidal ideation Allergies and Home Medications Allergies Coded Allergies: No Known Drug Allergies (Unverified , 01/12/09) Patient Home Medication List Home Medication List Reviewed: Yes Review of Systems Constitutional: see HPI, chills, diaphoresis EENTM: other (tinnitus); No double vision Respiratory: No short of breath, No wheezing Cardiovascular: No chest pain; palpitations Gastrointestinal: No abdominal pain, No nausea, No vomiting Genitourinary: no symptoms reported Musculoskeletal: no symptoms reported Skin: no symptoms reported Psychiatric/Neurological: See HPI, Anxiety, Depressed, Emotional Problems All Other Systems Reviewed Negative Unless Noted: Yes Past Ylybagn-Eyolgl-Nbtyrl Hx Past Med/Social Hx: Reviewed Nursing Past Med/Soc Hx Patient Social History Alcohol Use: Occasionally Uses Recreational Drug Use: Yes (MJ, METH, MORPHINE, OXYCONTIN, XANAX) Drug of Choice: METH, MARIJUANA Smoking Status: Current Everyday Smoker Type Used: Cigarettes Recent Foreign Travel: No Contact w/Someone Who Travel: No Recent Infectious Disease Expo: No Recent Hopitalizations: No Physical Abuse: No Sexual Abuse: No Immunizations Up To Date Tetanus Booster (TDap): Less than 5yrs PED Vaccines UTD: Yes Seasonal Allergies Seasonal Allergies: Yes Past Medical History Surgeries: Yes (DENTAL, RT HAND) Appendectomy, Orthopedic Respiratory: Yes Asthma Currently Using CPAP: No Currently Using BIPAP: No Cardiac: No Neurological: Yes (Multiple head injuries from Football injuries) Gastrointestinal: Yes (Abdominal pain and blood in stools since Wednesday) Gastroesophageal Reflux Musculoskeletal: Yes (chronic back and neck pain) Chronic Back Pain Endocrine: No Cancer: No Psychosocial: Yes (bipolar 2, ADHD, impulse control disorder) ADD/ADHD, Anxiety, Suicide Attempts, Bipolar, Depression Integumentary: No Blood Disorders: No Adverse Reaction/Blood Tranf: No Family Medical History Reviewed Nursing Family Hx Prostate cancer Grandfather Thyroid disease 19 MOTHER No Pertinent Family Hx Physical Exam Vital Signs - First Documented 02/01/18 22:56 Temp 98.6 Pulse 126 Resp 18 B/P (MAP) 167/109 (128) Pulse Ox 98 O2 Delivery Room Air Capillary Refill : Less Than 3 Seconds Height, Weight, BMI Height: 6'1.00" Weight: 280lbs. 6.8oz. [id number]; 35.6 BMI Method:Stated General Appearance: WD/WN, no apparent distress HEENT: PERRL/EOMI, pharynx normal Neck: full range of motion, supple Respiratory: lungs clear, normal breath sounds Cardiovascular: no murmur, tachycardia Gastrointestinal: non tender, soft Extremities: non-tender, normal inspection Neurologic/Psychiatric: alert Appearance/Memory: appropriate appearance, appropriate insight, neat Behavior/Eye Contact: cooperative, good eye contact, normal speech Thoughts/Hallucinations: normal thought pattern, no apparent hallucination Skin: normal color, diaphoresis Progress/Results/Core Measures Results/Orders Lab Results Laboratory Tests Test 02/01/18 23:06 02/01/18 23:10 02/02/18 00:32 Range/Units White Blood Count 13.9 H 4.3-11.0 10^3/uL Red Blood Count 5.48 4.35-5.85 10^6/uL Hemoglobin 15.4 13.3-17.7 G/DL Hematocrit 43 40-54 % Mean Corpuscular Volume 78 L 80-99 FL Mean Corpuscular Hemoglobin 28 25-34 PG Mean Corpuscular Hemoglobin Concent 36 32-36 G/DL Red Cell Distribution Width 13.3 10.0-14.5 % Platelet Count 262 130-400 10^3/uL Mean Platelet Volume 10.3 7.4-10.4 FL Neutrophils (%) (Auto) 70 42-75 % Lymphocytes (%) (Auto) 19 12-44 % Monocytes (%) (Auto) 8 0-12 % Eosinophils (%) (Auto) 3 0-10 % Basophils (%) (Auto) 0 0-10 % Neutrophils # (Auto) 9.7 H 1.8-7.8 X 10^3 Lymphocytes # (Auto) 2.7 1.0-4.0 X 10^3 Monocytes # (Auto) 1.1 H 0.0-1.0 X 10^3 Eosinophils # (Auto) 0.4 H 0.0-0.3 10^3/uL Basophils # (Auto) 0.0 0.0-0.1 10^3/uL Sodium Level 142 135-145 MMOL/L Potassium Level 3.6 3.6-5.0 MMOL/L Chloride Level 104 98-107 MMOL/L Carbon Dioxide Level 20 L 21-32 MMOL/L Anion Gap 18 H 5-14 MMOL/L Blood Urea Nitrogen 8 7-18 MG/DL Creatinine 1.04 0.60-1.30 MG/DL Estimat Glomerular Filtration Rate > 60 BUN/Creatinine Ratio 8 Glucose Level 101 70-105 MG/DL Calcium Level 10.1 8.5-10.1 MG/DL Corrected Calcium 8.5-10.1 MG/DL Total Bilirubin 0.2 0.1-1.0 MG/DL Aspartate Amino Transf (AST/SGOT) 24 5-34 U/L Alanine Aminotransferase (ALT/SGPT) 40 0-55 U/L Alkaline Phosphatase 63 40-136 U/L Total Protein 8.7 H 6.4-8.2 GM/DL Albumin 5.0 H 3.2-4.5 GM/DL Salicylates Level 68.9 *H 5.0-20.0 MG/DL Acetaminophen Level < 10 L 10-30 UG/ML Serum Alcohol < 10 <10 MG/DL Urine Color YELLOW Urine Clarity CLEAR Urine pH 7 5-9 Urine Specific [place] 1.005 L 1.016-1.022 Urine Protein NEGATIVE NEGATIVE Urine Glucose (UA) NEGATIVE NEGATIVE Urine Ketones NEGATIVE NEGATIVE Urine Nitrite NEGATIVE NEGATIVE Urine Bilirubin NEGATIVE NEGATIVE Urine Urobilinogen NORMAL NORMAL MG/DL Urine Leukocyte Esterase NEGATIVE NEGATIVE Urine RBC (Auto) NEGATIVE NEGATIVE Urine RBC NONE /HPF Urine WBC NONE /HPF Urine Squamous Epithelial Cells NONE /HPF Urine Crystals NONE /LPF Urine Bacteria NEGATIVE /HPF Urine Casts NONE /LPF Urine Mucus NEGATIVE /LPF Urine Culture Indicated NO Urine Opiates Screen NEGATIVE NEGATIVE Urine Oxycodone Screen NEGATIVE NEGATIVE Urine Methadone Screen NEGATIVE NEGATIVE Urine Propoxyphene Screen NEGATIVE NEGATIVE Urine Barbiturates Screen NEGATIVE NEGATIVE Ur Tricyclic Antidepressants Screen NEGATIVE NEGATIVE Urine Phencyclidine Screen NEGATIVE NEGATIVE Urine Amphetamines Screen POSITIVE H NEGATIVE Urine Methamphetamines Screen POSITIVE H NEGATIVE Urine Benzodiazepines Screen NEGATIVE NEGATIVE Urine Cocaine Screen NEGATIVE NEGATIVE Urine Cannabinoids Screen NEGATIVE NEGATIVE Blood Gas Puncture Site R RAD Blood Gas Patient Temperature 99.9 Arterial Blood pH 7.43 7.37-7.43 Arterial Blood Partial Pressure CO2 32 L 35-45 MMHG Arterial Blood Partial Pressure O2 109 H 79-93 MMHG Arterial Blood HCO3 21 L 23-27 MMOL/L Arterial Blood Total CO2 21.6 21.0-31.0 MMOL/L Arterial Blood Oxygen Saturation 99 94-100 % Arterial Blood Base Excess -2.8 L -2.5-2.5 MMOL/L Wisam Test YES-POS Blood Gas Ventilator Setting NO Blood Gas Inspired Oxygen RA My Orders Orders - ARIELLE CARNEY MD Saline Lock/Iv-Start (02/01/18 23:08) Ns Iv 1000 Ml (Sodium Chloride 0.9%) (02/01/18 23:08) Ua Culture If Indicated (02/01/18 23:08) Cbc With Automated Diff (02/01/18 23:08) Comprehensive Metabolic Panel (02/01/18 23:08) Alcohol (02/01/18 23:08) Drug Screen Stat (Urine) (02/01/18 23:08) Acetaminophen (02/01/18 23:08) Salicylate (02/01/18 23:08) Ekg Tracing (02/01/18 23:08) Saline Lock/Iv-Start (02/01/18 23:08) Monitor-Rhythm Ecg Trace Only (02/01/18 23:08) Bh Status Checks/Observation Q15M (02/01/18 23:08) Ns Iv 1000 Ml (Sodium Chloride 0.9%) (02/01/18 23:05) Catheter(Urinary) Insert & Ass 03,15 (02/01/18 23:10) Charcoal/Sorbitol Oral Susp (Actidose/So (02/01/18 23:30) Arterial Blood Gas (02/02/18 00:04) Sodium Bicarbonate 8.4% Syr (Sodium Bica (02/02/18 00:15) Sodium Bicarbonate 8.4% Syr (Sodium Bica (02/02/18 00:15) D5w 1000 Ml Iv Solution (Dextrose 5% Margareth (02/02/18 00:15) Sodium Bicarbonate 8.4% Syr (Sodium Bica (02/02/18 00:04) D5w 1000 Ml Iv Solution (Dextrose 5% Margareth (02/02/18 00:04) Arterial Blood Draw (02/02/18 ) Medications Given in ED Current Medications Medications Dose Ordered Sig/Josh Route Start Time Stop Time Status Last Admin Dose Admin Charcoal/Sorbitol 50 gm ONCE ONCE PO 02/01/18 23:30 02/01/18 23:31 DC 02/01/18 23:34 50 GM Sodium Bicarbonate 150 meq ONCE ONCE IV 02/02/18 00:15 02/02/18 00:17 DC 02/02/18 00:39 150 MEQ Sodium Bicarbonate 150 meq ONCE ONCE IV 02/02/18 00:15 02/02/18 00:17 DC 02/02/18 00:47 150 MEQ Vital Signs/I&O 02/01/18 22:56 Temp 98.6 Pulse 126 Resp 18 B/P (MAP) 167/109 (128) Pulse Ox 98 O2 Delivery Room Air Blood Pressure Mean: 128 Progress Progress Note : Progress Note Seen and evaluated. IV, labs, UA, EKG, normal saline 2 L IV bolus ordered. We will get UDS. Poison control contacted and recommended activated charcoal with sorbitol now with repeated activated charcoal in 4 hours. The initial dose was ordered. ABG ordered. We will initiate sodium bicarbonate drip (3 A of sodium bicarbonate and 1 L of D5W) to run at 150 mL an hour. We will give an initial bolus of sodium bicarbonate at 150 mEq or 3 amps per recommendations of poison control. Sodium bicarbonate bolus will be initiated after ABG complete. 0010: Patient to be admitted to ICU. Salicylate level is 68 and does not meet requirements for emergent hemodialysis. 0027: I did discuss the case with Dr. Marina and she accepts patient for admission to the ICU. We will continue bicarbonate drip and titrate to achieve urine pH of 8 and serum pH of 7.50 without allowing the serum pH to exceed 7.55. Every 2 hours ABG, BNP and salicylate level as well as urine pH. Poison control protocol with orders to ICU for clarification. Consult E-ICU for management. Patient agrees with admission. Admit, inpatient status to ICU. Initial ECG Impression Date: Feb 01, 2018 Initial ECG Impression Time: 23:02 Initial ECG Rate: 127 Initial ECG Rhythm: S.Tach Comment Sinus tachycardia with normal axis. No evidence of ST elevation [place]. Change from previous of 10/26*15 which was sinus rhythm. Interpreted by me. Departure Communication (Admissions) Time/Spoke to Admitting Phy: 02:27 Impression Primary Impression: Salicylate overdose Qualified Codes: T39.092A - Poisoning by salicylates, intentional self-harm, initial encounter Additional Impression: Suicide attempt Disposition: ADMITTED INPATIENT Condition: Critical Admissions Decision to Admit Reason: Admit from ER (General) Decision to Admit/Date: Feb 02, 2018 Time/Decision to Admit Time: 00:15 Departure-Patient Inst. Referrals: [facility] (PCP/Family) Primary Care Physician Patient Instructions: ALCOHOL AND SUBSTANCE ABUSE ARIELLE CARNEY MD Feb 02, 2018 00:04
[2018-02-02] MEDS ORDERED: SODIUM BICARB 8.4% 50 MEQ/50 ML (ABBOTT) SYR IV ONE ×2 (00:15)
[2018-02-02 00:41] LABS: ABG BASE EXCESS -2.8 MMOL/L (-2.5-2.5); ABG OXYGEN SATURATION 99 % (94-100); ABG PCO2 32 MMHG (35-45); ABG PH 7.43 (7.37-7.43); ABG PO2 109 MMHG (79-93); ABG TCO2 21.6 MMOL/L (21.0-31.0)
[2018-02-02 00:42] LABS: ALLENS TEST YES-POS; INSPIRED O2 RA; PATIENT TEMP 99.9; VENTILATOR NO
[2018-02-02] MEDS: D5W 1000 ML IV SOLUTION 1,000 ML IV SCH ×4 (00:47→18:09)
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
[2018-02-02] MEDS ORDERED: CHARCOAL/AQUEOUS 50 GM/240 ML BTL ONE (02:13)
[2018-02-02 02:31] LABS: BILIRUBIN,URINE NEGATIVE (NEGATIVE); CLARITY,URINE CLEAR; COLOR,URINE YELLOW; GLUCOSE, URINE (UA) NEGATIVE (NEGATIVE); KETONES,URINE NEGATIVE (NEGATIVE); LEUKOCYTE ESTERASE ,URINE NEGATIVE (NEGATIVE); NITRITE,URINE NEGATIVE (NEGATIVE); PH,URINE 8 (5-9); PROTEIN,URINE NEGATIVE (NEGATIVE); UROBILINOGEN,URINE NORMAL (NORMAL)
[2018-02-02 02:37] LABS: BACTERIA,URINE NEGATIVE /HPF; SQUAMOUS EPITHELIAL CELL,UR RARE /HPF; WBC,URINE RARE /HPF
[2018-02-02] MEDS ORDERED: RT-ALBUTEROL SULF 2.5 MG/3 ML PRE-MIX VIAL INH PRN (02:45)
[2018-02-02 02:47] LABS: ABG BASE EXCESS 0.7 MMOL/L (-2.5-2.5); ABG OXYGEN SATURATION 99 % (94-100); ABG PCO2 35 MMHG (35-45); ABG PH 7.45 (7.37-7.43); ABG PO2 112 MMHG (79-93); ABG TCO2 25.3 MMOL/L (21.0-31.0)
[2018-02-02 02:48] LABS: ALLENS TEST YES-POS; INSPIRED O2 2L/NC
[2018-02-02 02:49] LABS: PATIENT TEMP 99.3; VENTILATOR NO
[2018-02-02] MEDS ORDERED: CHARCOAL/AQUEOUS 50 GM/240 ML BTL NG ONE (03:30)
[2018-02-02] MEDS ORDERED: ONDANSETRON 4 MG/2 ML (SDV) Z0FRAN IV PRN (03:45)
[2018-02-02] MEDS: SODIUM BICARBONATE 8.4% VIAL 150 MEQ in D5W 1000 ML IV SOLUTION 1,000 ML IV SCH ×3 (03:53→14:58)
[2018-02-02 04:05] LABS: BASOPHILS % (AUTO) 0 % (0-10); EOSINOPHILS % (AUTO) 0 % (0-10); HEMATOCRIT 44 % (40-54); HEMOGLOBIN 15.1 G/DL (13.3-17.7); LYMPHOCYTES # (AUTO) 1.8 X 10^3 (1.0-4.0); LYMPHOCYTES % (AUTO) 13 % (12-44); MEAN CORPUSCULAR HEMOGLOBIN 27 PG (25-34); MEAN CORPUSCULAR HGB CONC 35 G/DL (32-36); MEAN CORPUSCULAR VOLUME 77 FL (80-99); MEAN PLATELET VOLUME 10.6 FL (7.4-10.4); MONOCYTES # (AUTO) 0.8 X 10^3 (0.0-1.0); MONOCYTES % (AUTO) 6 % (0-12); NEUTROPHILS # (AUTO) 11.5 X 10^3 (1.8-7.8); NEUTROPHILS % (AUTO) 81 % (42-75); PLATELET COUNT 268 10^3/uL (130-400); RED BLOOD COUNT 5.64 10^6/uL (4.35-5.85); RED CELL DISTRIBUTION WIDTH 13.4 % (10.0-14.5); WHITE BLOOD COUNT 14.1 10^3/uL (4.3-11.0)
[2018-02-02 04:25] LABS: BAND NEUTROPHILS 0 %; BASOPHILS % (MANUAL) 0 %; EOSINOPHILS % (MANUAL) 1 %; LYMPHOCYTES % (MANUAL) 18 %; MONOCYTES % (MANUAL) 3 %; NEUTROPHILS % (MANUAL) 78 %; RBC MORPH NORMAL
[2018-02-02 04:38] LABS: BUN/CREATININE RATIO 6; CALCIUM 9.8 MG/DL (8.5-10.1); CARBON DIOXIDE 21 MMOL/L (21-32); CHLORIDE 107 MMOL/L (98-107); CREATININE SERUM 1.09 MG/DL (0.60-1.30); GFR ESTIMATED > 60; GLUCOSE 110 MG/DL (70-105); MAGNESIUM 2.7 MG/DL (1.8-2.4); PHOSPHORUS 4.8 MG/DL (2.3-4.7); POTASSIUM 3.6 MMOL/L (3.6-5.0); SODIUM 146 MMOL/L (135-145)
[2018-02-02 04:47] LABS: SALICYLATE 64.8 MG/DL (5.0-20.0)
[2018-02-02] MEDS: MAGNESIUM 1 GM/100 ML IVPB 100 ML IV SCH (04:51)
[2018-02-02] MEDS: POTASSIUM CL 10MEQ/50ML IVPB 50 ML IV SCH ×2 (04:53→23:05)
[2018-02-02] MEDS: KCL 20 MEQ TAB (K-DUR) PO SCH ×4 (04:56→18:10)
[2018-02-02] MEDS ORDERED: KCL 20 MEQ TAB (K-DUR) PO ONE ×2 (05:00→23:00)
[2018-02-02 05:38] LABS: ABG BASE EXCESS 0.6 MMOL/L (-2.5-2.5); ABG OXYGEN SATURATION 99 % (94-100); ABG PCO2 35 MMHG (35-45); ABG PH 7.46 (7.37-7.43); ABG PO2 125 MMHG (79-93)
[2018-02-02 05:40] LABS: ALLENS TEST YES-POS; INSPIRED O2 2L/NC; PATIENT TEMP 99.1; VENTILATOR NO
[2018-02-02 05:41] LABS: BUN/CREATININE RATIO 6; CALCIUM 9.4 MG/DL (8.5-10.1); CARBON DIOXIDE 19 MMOL/L (21-32); CHLORIDE 106 MMOL/L (98-107); CREATININE SERUM 1.12 MG/DL (0.60-1.30); GFR ESTIMATED > 60; GLUCOSE 119 MG/DL (70-105); POTASSIUM 3.7 MMOL/L (3.6-5.0); SODIUM 144 MMOL/L (135-145)
[2018-02-02 05:44] LABS: SALICYLATE 58.9 MG/DL (5.0-20.0)
[2018-02-02 06:50] LABS: BILIRUBIN,URINE NEGATIVE (NEGATIVE); CLARITY,URINE CLEAR; COLOR,URINE YELLOW; GLUCOSE, URINE (UA) NEGATIVE (NEGATIVE); KETONES,URINE NEGATIVE (NEGATIVE); LEUKOCYTE ESTERASE ,URINE NEGATIVE (NEGATIVE); NITRITE,URINE NEGATIVE (NEGATIVE); PH,URINE 7 (5-9); PROTEIN,URINE 2+ (NEGATIVE); UROBILINOGEN,URINE NORMAL (NORMAL)
[2018-02-02 07:03] LABS: BACTERIA,URINE NEGATIVE /HPF; WBC,URINE RARE /HPF
[2018-02-02] MEDS ORDERED: FLU QUADRIvalent (5+ YOA) 2018-2019 (AFLURIA) 0.5 ML IM ONE (07:15)
--- NOTE | 2018-02-02 07:58 | Diagnostic Imaging Report ---
INDICATION: Overdose. FINDINGS: Portable chest shows the lungs to be well-aerated and clear. The heart is not enlarged. There is no pulmonary edema. No hilar adenopathy. No pneumothorax or pleural effusions. No bony lesions. IMPRESSION: Normal portable chest. Dictated by: Dictated on workstation # [id number]
[2018-02-02 09:39] LABS: BUN/CREATININE RATIO 8; CALCIUM 9.2 MG/DL (8.5-10.1); CARBON DIOXIDE 23 MMOL/L (21-32); CHLORIDE 105 MMOL/L (98-107); CREATININE SERUM 1.12 MG/DL (0.60-1.30); GFR ESTIMATED > 60; GLUCOSE 107 MG/DL (70-105); POTASSIUM 3.4 MMOL/L (3.6-5.0); SODIUM 142 MMOL/L (135-145)
[2018-02-02 09:45] LABS: SALICYLATE 53.8 MG/DL (5.0-20.0)
[2018-02-02] MEDS ORDERED: PALI156D IM (10:13)
[2018-02-02 11:04] LABS: BILIRUBIN,URINE NEGATIVE (NEGATIVE); CLARITY,URINE CLEAR; COLOR,URINE YELLOW; GLUCOSE, URINE (UA) NEGATIVE (NEGATIVE); KETONES,URINE NEGATIVE (NEGATIVE); LEUKOCYTE ESTERASE ,URINE NEGATIVE (NEGATIVE); NITRITE,URINE NEGATIVE (NEGATIVE); PH,URINE 7 (5-9); PROTEIN,URINE 2+ (NEGATIVE); UROBILINOGEN,URINE NORMAL (NORMAL)
[2018-02-02 11:16] LABS: BACTERIA,URINE NEGATIVE /HPF; WBC,URINE RARE /HPF
--- NOTE | 2018-02-02 11:25 | History & Physicial ([facility]) ---
HPI History of Present Illness: 27 year old male admitted after presenting to ED last night with suicide attempt by ingesting 100 tablets of 325 mg aspirin. Pt has long history of mental illness, including several suicide attempts. This is his fourth attempt via ASA overdose; nursing staff report that he told them he used this method "because it is the one that works". Previous ASA overdoses in 2016, 2015, 2012. Patient reportedly sees [facility], and is about 2 weeks late for his monthly Invega shot - reportedly last received on 12/28/17. Patient reportedly took the 100 tablets around 1900, and presented to the ED a few hours later. He was given activated charcoal, poison control was contacted , and he has been admitted to the ICU on sodium bicarb gtt. He was also noted to be positive for amphetamines and methamphetamines on admission, with a known history of polysubstance abuse. Other than sleepiness, the patient has not exhibited any other signs of toxicity. Source: patient, RN/MD, RN notes reviewed, old records Exam Limitations: clinical condition (sleepy, fairly unwilling to talk at the time of exam but does respond to commands) Date seen by provider: Feb 02, 2018 Time Seen by Provider: 12:00 Attending Physician Giuliana Marina DO PCP Dr. Disla Consult Date of Admission Feb 02, 2018 at 00:51 Home Medications Home Medications Reviewed patient Home Medication Reconciliation performed by pharmacy medication reconciliations automotive specialty technician and/or nursing. Patients Allergies have been reviewed. Allergies Coded Allergies: No Known Drug Allergies (Unverified , 01/12/09) TBV-Bielus-Grnmms Hx Patient Social History Marrital Status: cohabiting Number of Children: 3 Number of living children: 3 Living Status: lives with significant other Employed/Student: employed Alcohol Use: Occasionally Uses Recreational Drug Use: Yes (MJ, METH, MORPHINE, OXYCONTIN, XANAX) Drug of Choice: METH, MARIJUANA, morphine, oxycontin, xanax Smoking Status: Current Everyday Smoker Type Used: Cigarettes Recent Foreign Travel: No Contact w/other who traveled: No Recent Hopitalizations: No Recent Infectious Disease Expo: No Physical Abuse Screen: No Sexual Abuse: No Immunizations Up To Date Tetanus Booster (TDap): Less than 5yrs Past Medical History Pasts Medical History 1. Bipolar II 2. Impulse control disorder 3. ADHD 4. History of suicide attempt x4 5. Gastroparesis, GERD, Gastritis 6. Illicit drug use- THC, Oxycodone, Xanax, Morphine, Meth Past Surgical History 1. Appendectomy 2. EGD 2009 [facility] Family Medical History Family History: Prostate cancer Grandfather Thyroid disease 19 MOTHER Review of Systems ([facility]) Constitutional: see HPI EENTM: no symptoms reported Respiratory: no symptoms reported Cardiovascular: no symptoms reported Gastrointestinal: no symptoms reported Genitourinary: no symptoms reported Musculoskeletal: no symptoms reported Skin: no symptoms reported Psychiatric/Neurological: See HPI Reviewed Test Results Reviewed Test Results Lab Laboratory Tests Test 02/01/18 23:06 02/01/18 23:10 02/02/18 00:32 02/02/18 02:15 Range/Units White Blood Count 13.9 H 4.3-11.0 10^3/uL Red Blood Count 5.48 4.35-5.85 10^6/uL Hemoglobin 15.4 13.3-17.7 G/DL Hematocrit 43 40-54 % Mean Corpuscular Volume 78 L 80-99 FL Mean Corpuscular Hemoglobin 28 25-34 PG Mean Corpuscular Hemoglobin Concent 36 32-36 G/DL Red Cell Distribution Width 13.3 10.0-14.5 % Platelet Count 262 130-400 10^3/uL Mean Platelet Volume 10.3 7.4-10.4 FL Neutrophils (%) (Auto) 70 42-75 % Lymphocytes (%) (Auto) 19 12-44 % Monocytes (%) (Auto) 8 0-12 % Eosinophils (%) (Auto) 3 0-10 % Basophils (%) (Auto) 0 0-10 % Neutrophils # (Auto) 9.7 H 1.8-7.8 X 10^3 Lymphocytes # (Auto) 2.7 1.0-4.0 X 10^3 Monocytes # (Auto) 1.1 H 0.0-1.0 X 10^3 Eosinophils # (Auto) 0.4 H 0.0-0.3 10^3/uL Basophils # (Auto) 0.0 0.0-0.1 10^3/uL Sodium Level 142 135-145 MMOL/L Potassium Level 3.6 3.6-5.0 MMOL/L Chloride Level 104 98-107 MMOL/L Carbon Dioxide Level 20 L 21-32 MMOL/L Anion Gap 18 H 5-14 MMOL/L Blood Urea Nitrogen 8 7-18 MG/DL Creatinine 1.04 0.60-1.30 MG/DL Estimat Glomerular Filtration Rate > 60 BUN/Creatinine Ratio 8 Glucose Level 101 70-105 MG/DL Calcium Level 10.1 8.5-10.1 MG/DL Corrected Calcium 8.5-10.1 MG/DL Total Bilirubin 0.2 0.1-1.0 MG/DL Aspartate Amino Transf (AST/SGOT) 24 5-34 U/L Alanine Aminotransferase (ALT/SGPT) 40 0-55 U/L Alkaline Phosphatase 63 40-136 U/L Total Protein 8.7 H 6.4-8.2 GM/DL Albumin 5.0 H 3.2-4.5 GM/DL Salicylates Level 68.9 *H 5.0-20.0 MG/DL Acetaminophen Level < 10 L 10-30 UG/ML Serum Alcohol < 10 <10 MG/DL Urine Color YELLOW YELLOW Urine Clarity CLEAR CLEAR Urine pH 7 8 5-9 Urine Specific [place] 1.005 L 1.010 L 1.016-1.022 Urine Protein NEGATIVE NEGATIVE NEGATIVE Urine Glucose (UA) NEGATIVE NEGATIVE NEGATIVE Urine Ketones NEGATIVE NEGATIVE NEGATIVE Urine Nitrite NEGATIVE NEGATIVE NEGATIVE Urine Bilirubin NEGATIVE NEGATIVE NEGATIVE Urine Urobilinogen NORMAL NORMAL NORMAL MG/DL Urine Leukocyte Esterase NEGATIVE NEGATIVE NEGATIVE Urine RBC (Auto) NEGATIVE NEGATIVE NEGATIVE Urine RBC NONE NONE /HPF Urine WBC NONE RARE /HPF Urine Squamous Epithelial Cells NONE RARE /HPF Urine Crystals NONE NONE /LPF Urine Bacteria NEGATIVE NEGATIVE /HPF Urine Casts NONE NONE /LPF Urine Mucus NEGATIVE NEGATIVE /LPF Urine Culture Indicated NO NO Urine Opiates Screen NEGATIVE NEGATIVE Urine Oxycodone Screen NEGATIVE NEGATIVE Urine Methadone Screen NEGATIVE NEGATIVE Urine Propoxyphene Screen NEGATIVE NEGATIVE Urine Barbiturates Screen NEGATIVE NEGATIVE Ur Tricyclic Antidepressants Screen NEGATIVE NEGATIVE Urine Phencyclidine Screen NEGATIVE NEGATIVE Urine Amphetamines Screen POSITIVE H NEGATIVE Urine Methamphetamines Screen POSITIVE H NEGATIVE Urine Benzodiazepines Screen NEGATIVE NEGATIVE Urine Cocaine Screen NEGATIVE NEGATIVE Urine Cannabinoids Screen NEGATIVE NEGATIVE Blood Gas Puncture Site R RAD Blood Gas Patient Temperature 99.9 Arterial Blood pH 7.43 7.37-7.43 Arterial Blood Partial Pressure CO2 32 L 35-45 MMHG Arterial Blood Partial Pressure O2 109 H 79-93 MMHG Arterial Blood HCO3 21 L 23-27 MMOL/L Arterial Blood Total CO2 21.6 21.0-31.0 MMOL/L Arterial Blood Oxygen Saturation 99 94-100 % Arterial Blood Base Excess -2.8 L -2.5-2.5 MMOL/L Wisam Test YES-POS Blood Gas Ventilator Setting NO Blood Gas Inspired Oxygen RA Test 02/02/18 02:40 02/02/18 03:50 02/02/18 05:00 02/02/18 05:32 Range/Units Blood Gas Puncture Site L RAD R RAD Blood Gas Patient Temperature 99.3 99.1 Arterial Blood pH 7.45 H 7.46 H 7.37-7.43 Arterial Blood Partial Pressure CO2 35 35 35-45 MMHG Arterial Blood Partial Pressure O2 112 H 125 H 79-93 MMHG Arterial Blood HCO3 24 24 23-27 MMOL/L Arterial Blood Total CO2 25.3 25.0 21.0-31.0 MMOL/L Arterial Blood Oxygen Saturation 99 99 94-100 % Arterial Blood Base Excess 0.7 0.6 -2.5-2.5 MMOL/L Wisam Test YES-POS YES-POS Blood Gas Ventilator Setting NO NO Blood Gas Inspired Oxygen 2L/NC 2L/NC White Blood Count 14.1 H 4.3-11.0 10^3/uL Red Blood Count 5.64 4.35-5.85 10^6/uL Hemoglobin 15.1 13.3-17.7 G/DL Hematocrit 44 40-54 % Mean Corpuscular Volume 77 L 80-99 FL Mean Corpuscular Hemoglobin 27 25-34 PG Mean Corpuscular Hemoglobin Concent 35 32-36 G/DL Red Cell Distribution Width 13.4 10.0-14.5 % Platelet Count 268 130-400 10^3/uL Mean Platelet Volume 10.6 H 7.4-10.4 FL Neutrophils (%) (Auto) 81 H 42-75 % Lymphocytes (%) (Auto) 13 12-44 % Monocytes (%) (Auto) 6 0-12 % Eosinophils (%) (Auto) 0 0-10 % Basophils (%) (Auto) 0 0-10 % Neutrophils # (Auto) 11.5 H 1.8-7.8 X 10^3 Lymphocytes # (Auto) 1.8 1.0-4.0 X 10^3 Monocytes # (Auto) 0.8 0.0-1.0 X 10^3 Eosinophils # (Auto) 0.0 0.0-0.3 10^3/uL Basophils # (Auto) 0.0 0.0-0.1 10^3/uL Neutrophils % (Manual) 78 % Lymphocytes % (Manual) 18 % Monocytes % (Manual) 3 % Eosinophils % (Manual) 1 % Basophils % (Manual) 0 % Band Neutrophils 0 % Blood Morphology Comment NORMAL Sodium Level 146 H 144 135-145 MMOL/L Potassium Level 3.6 3.7 3.6-5.0 MMOL/L Chloride Level 107 106 98-107 MMOL/L Carbon Dioxide Level 21 19 L 21-32 MMOL/L Anion Gap 18 H 19 H 5-14 MMOL/L Blood Urea Nitrogen 7 7 7-18 MG/DL Creatinine 1.09 1.12 0.60-1.30 MG/DL Estimat Glomerular Filtration Rate > 60 > 60 BUN/Creatinine Ratio 6 6 Glucose Level 110 H 119 H 70-105 MG/DL Calcium Level 9.8 9.4 8.5-10.1 MG/DL Phosphorus Level 4.8 H 2.3-4.7 MG/DL Magnesium Level 2.7 H 1.8-2.4 MG/DL Salicylates Level 64.8 *H 58.9 *H 5.0-20.0 MG/DL Test 02/02/18 06:35 02/02/18 09:00 02/02/18 10:30 02/02/18 11:00 Range/Units Urine Color YELLOW YELLOW Urine Clarity CLEAR CLEAR Urine pH 7 7 5-9 Urine Specific [place] 1.010 L 1.010 L 1.016-1.022 Urine Protein 2+ H 2+ H NEGATIVE Urine Glucose (UA) NEGATIVE NEGATIVE NEGATIVE Urine Ketones NEGATIVE NEGATIVE NEGATIVE Urine Nitrite NEGATIVE NEGATIVE NEGATIVE Urine Bilirubin NEGATIVE NEGATIVE NEGATIVE Urine Urobilinogen NORMAL NORMAL NORMAL MG/DL Urine Leukocyte Esterase NEGATIVE NEGATIVE NEGATIVE Urine RBC (Auto) NEGATIVE NEGATIVE NEGATIVE Urine RBC NONE NONE /HPF Urine WBC RARE RARE /HPF Urine Squamous Epithelial Cells NONE NONE /HPF Urine Crystals NONE NONE /LPF Urine Bacteria NEGATIVE NEGATIVE /HPF Urine Casts NONE NONE /LPF Urine Mucus NEGATIVE NEGATIVE /LPF Urine Culture Indicated NO NO Sodium Level 142 141 135-145 MMOL/L Potassium Level 3.4 L 3.3 L 3.6-5.0 MMOL/L Chloride Level 105 103 98-107 MMOL/L Carbon Dioxide Level 23 24 21-32 MMOL/L Anion Gap 14 14 5-14 MMOL/L Blood Urea Nitrogen 9 9 7-18 MG/DL Creatinine 1.12 1.14 0.60-1.30 MG/DL Estimat Glomerular Filtration Rate > 60 > 60 BUN/Creatinine Ratio 8 8 Glucose Level 107 H 108 H 70-105 MG/DL Calcium Level 9.2 8.8 8.5-10.1 MG/DL Salicylates Level 53.8 *H 48.4 *H 5.0-20.0 MG/DL Test 02/02/18 12:50 02/02/18 14:15 02/02/18 15:18 02/02/18 17:14 Range/Units Sodium Level 141 140 139 135-145 MMOL/L Potassium Level 3.3 L 3.4 L 3.3 L 3.6-5.0 MMOL/L Chloride Level 103 103 102 98-107 MMOL/L Carbon Dioxide Level 25 24 25 21-32 MMOL/L Anion Gap 13 13 12 5-14 MMOL/L Blood Urea Nitrogen 9 8 8 7-18 MG/DL Creatinine 1.12 1.02 0.98 0.60-1.30 MG/DL Estimat Glomerular Filtration Rate > 60 > 60 > 60 BUN/Creatinine Ratio 8 8 8 Glucose Level 106 H 99 97 70-105 MG/DL Calcium Level 8.7 8.6 8.6 8.5-10.1 MG/DL Corrected Calcium 8.5 8.5-10.1 MG/DL Phosphorus Level 4.1 2.3-4.7 MG/DL Magnesium Level 2.3 1.8-2.4 MG/DL Total Bilirubin 0.2 0.1-1.0 MG/DL Aspartate Amino Transf (AST/SGOT) 16 5-34 U/L Alanine Aminotransferase (ALT/SGPT) 35 0-55 U/L Alkaline Phosphatase 51 40-136 U/L Total Protein 7.0 6.4-8.2 GM/DL Albumin 4.2 3.2-4.5 GM/DL Salicylates Level 42.6 *H 35.9 *H 29.8 H 5.0-20.0 MG/DL Urine Color YELLOW Urine Clarity CLEAR Urine pH 8 5-9 Urine Specific [place] 1.015 L 1.016-1.022 Urine Protein 2+ H NEGATIVE Urine Glucose (UA) NEGATIVE NEGATIVE Urine Ketones NEGATIVE NEGATIVE Urine Nitrite NEGATIVE NEGATIVE Urine Bilirubin NEGATIVE NEGATIVE Urine Urobilinogen NORMAL NORMAL MG/DL Urine Leukocyte Esterase NEGATIVE NEGATIVE Urine RBC (Auto) NEGATIVE NEGATIVE Urine RBC NONE /HPF Urine WBC RARE /HPF Urine Squamous Epithelial Cells NONE /HPF Urine Crystals NONE /LPF Urine Bacteria NEGATIVE /HPF Urine Casts NONE /LPF Urine Mucus NEGATIVE /LPF Urine Culture Indicated NO Test 02/02/18 17:35 02/02/18 18:58 02/02/18 19:25 Range/Units Urine Color YELLOW Urine Clarity CLEAR Urine pH 8 5-9 Urine Specific [place] 1.010 L 1.016-1.022 Urine Protein 3+ H NEGATIVE Urine Glucose (UA) NEGATIVE NEGATIVE Urine Ketones NEGATIVE NEGATIVE Urine Nitrite NEGATIVE NEGATIVE Urine Bilirubin NEGATIVE NEGATIVE Urine Urobilinogen NORMAL NORMAL MG/DL Urine Leukocyte Esterase NEGATIVE NEGATIVE Urine RBC (Auto) NEGATIVE NEGATIVE Radiology CXR with no acute abnormalities Physical Exam-([facility]) Physical Exam Vital Signs VS - Last 72 Hours, by Label 02/01/18 02/02/18 02/02/18 02/02/18 22:56 01:25 01:28 01:31 Temp 98.6 Pulse 126 113 117 Resp 18 22 12 B/P (MAP) 167/109 (128) 141/101 146/95 (112) Pulse Ox 98 98 98 97 O2 Delivery Room Air Room Air Room Air Room Air 02/02/18 02/02/18 02/02/18 02/02/18 01:35 01:45 02:00 02:05 Temp 99.3 Pulse 112 128 118 Resp 20 24 B/P (MAP) 145/99 (114) 141/93 (109) Pulse Ox 98 98 97 O2 Delivery Nasal Cannula Nasal Cannula Room Air O2 Flow Rate 2.00 2.00 02/02/18 02/02/18 02/02/18 02/02/18 02:05 02:15 02:30 02:45 Pulse 120 113 114 111 Resp 13 12 35 B/P (MAP) 143/91 (108) 143/86 (105) 142/85 (104) Pulse Ox 97 99 99 99 O2 Delivery Nasal Cannula Nasal Cannula Nasal Cannula O2 Flow Rate 2.00 2.00 2.00 FiO2 21 02/02/18 02/02/18 02/02/18 02/02/18 03:00 04:00 04:00 05:00 Pulse 111 114 118 Resp 8 29 21 B/P (MAP) 135/83 (100) 149/93 (111) 125/66 (85) Pulse Ox 99 99 99 98 O2 Delivery Nasal Cannula Nasal Cannula Nasal Cannula Nasal Cannula O2 Flow Rate 2.00 2.00 2.00 2.00 02/02/18 02/02/18 02/02/18 02/02/18 06:00 07:00 07:00 07:26 Pulse 102 101 98 Resp 23 24 B/P (MAP) 151/87 (108) 134/86 (102) Pulse Ox 99 98 97 O2 Delivery Nasal Cannula Nasal Cannula Room Air O2 Flow Rate 2.00 2.00 02/02/18 02/02/18 02/02/18 02/02/18 08:00 08:00 08:00 09:00 Temp 97.2 Pulse 99 90 Resp 21 24 B/P (MAP) 122/81 (95) 130/82 (98) Pulse Ox 99 98 99 O2 Delivery Room Air Room Air Room Air Room Air 02/02/18 02/02/18 02/02/18 02/02/18 10:00 11:00 12:00 12:00 Pulse 87 84 81 Resp 21 26 9 B/P (MAP) 133/78 (96) 144/75 (98) Pulse Ox 98 98 99 98 O2 Delivery Room Air Room Air Room Air Room Air 02/02/18 02/02/18 02/02/18 02/02/18 12:00 13:00 13:00 14:00 Temp 98.2 Pulse 84 80 80 Resp 20 19 B/P (MAP) 147/88 (107) 149/76 (100) Pulse Ox 97 97 O2 Delivery Room Air Room Air 02/02/18 02/02/18 02/02/18 15:00 16:00 16:00 Pulse 74 72 Resp 18 17 B/P (MAP) 143/63 (89) 125/77 (93) Pulse Ox 98 97 99 O2 Delivery Room Air Room Air Room Air Capillary Refill : Less Than 3 Seconds General Appearance: WD/WN, no apparent distress Eyes: Bilateral Eye Normal Inspection, Bilateral Eye EOMI HEENT: normal ENT inspection; No scleral icterus (R), No scleral icterus (L), No photophobia Neck: non-tender, full range of motion, supple, normal inspection Respiratory: chest non-tender, lungs clear, normal breath sounds, no respiratory distress, no accessory muscle use; No accessory muscle use Cardiovascular: normal peripheral pulses, regular rate, rhythm, no edema, no gallop Gastrointestinal: normal bowel sounds, non tender, soft, no pulsatile mass; No guarding, No rebound Rectal: deferred Back: normal inspection, no CVA tenderness, no vertebral tenderness Extremities: normal range of motion, non-tender, normal inspection, no pedal edema, no calf tenderness, normal capillary refill Neurologic/Psychiatric: leaf conditioner helper II-XII nml as tested, no motor/sensory deficits, oriented x 3, other (awakens and follows commands) Skin: normal color, warm/dry Assessment/Plan Assessment/Plan Admission Dx ASA Overdose Suicide Attempt Bipolar 2 Disorder Polysubstance Abuse Tobacco Abuse Obesity, BMI 35.8 Admission Status: Inpatient Order (span 2 midnights) Reason for Inpatient Admission: treatment of salicylate overdose (1) Salicylate overdose Status: Acute Assessment & Plan: 02/02 -admitted to ICU, bicarb gtt -initial salicylate level 68.9, trending down --> 64.8 --> 58.9 --> 53.8 --> 48.4 -continue bicarb gtt until salicylate level <35 -consult to mental health for evaluation Qualifiers: Qualified Codes: T39.092A - Poisoning by salicylates, intentional self-harm , initial encounter (2) Suicide attempt Status: Acute Assessment & Plan: 02/02 -pt's fourth attempt via ASA overdose -consult to mental health (3) Bipolar II disorder Status: Chronic (4) Polysubstance abuse Status: Chronic Assessment & Plan: -positive for amphetamines and methamphetamines on admission (5) Tobacco abuse Status: Chronic Assessment & Plan: -cessation encouraged (6) Hyperphosphatemia Status: Resolved (7) Hypermagnesemia Status: Resolved (8) Leukocytosis Status: Acute Assessment & Plan: 02/02 -WBC 13.9 --> 14.1 -likely reactive in nature, no other s/s of infection -recheck in AM Qualifiers: Qualified Codes: D72.829 - Elevated white blood cell count, unspecified (9) Obesity (BMI 30-39.9) Status: Chronic Assessment & Plan: BMI 35.8 Clinical Quality Measures DVT/VTE Risk/Contraindication: Risk Factor Score Per Nursin RFS Level Per Nursing on Admit: 2=Moderate Copy Copies To 1: BROCK DISLA MD, MARGARET E DO Feb 02, 2018 11:25
[2018-02-02 11:28] LABS: BUN/CREATININE RATIO 8; CALCIUM 8.8 MG/DL (8.5-10.1); CARBON DIOXIDE 24 MMOL/L (21-32); CHLORIDE 103 MMOL/L (98-107); CREATININE SERUM 1.14 MG/DL (0.60-1.30); GFR ESTIMATED > 60; GLUCOSE 108 MG/DL (70-105); POTASSIUM 3.3 MMOL/L (3.6-5.0); SODIUM 141 MMOL/L (135-145)
[2018-02-02 11:35] LABS: SALICYLATE 48.4 MG/DL (5.0-20.0)
[2018-02-02 13:15] LABS: ALANINE AMINOTRANSFERASE 35 U/L (0-55); ALBUMIN 4.2 GM/DL (3.2-4.5); ALKALINE PHOSPHATASE 51 U/L (40-136); BILIRUBIN,TOTAL 0.2 MG/DL (0.1-1.0); BUN/CREATININE RATIO 8; CALCIUM 8.7 MG/DL (8.5-10.1); CARBON DIOXIDE 25 MMOL/L (21-32); CHLORIDE 103 MMOL/L (98-107); CREATININE SERUM 1.12 MG/DL (0.60-1.30); GFR ESTIMATED > 60; GLUCOSE 106 MG/DL (70-105); MAGNESIUM 2.3 MG/DL (1.8-2.4); PHOSPHORUS 4.1 MG/DL (2.3-4.7); POTASSIUM 3.3 MMOL/L (3.6-5.0); SODIUM 141 MMOL/L (135-145)
[2018-02-02 13:17] LABS: SALICYLATE 42.6 MG/DL (5.0-20.0)
[2018-02-02 14:28] LABS: BILIRUBIN,URINE NEGATIVE (NEGATIVE); CLARITY,URINE CLEAR; COLOR,URINE YELLOW; GLUCOSE, URINE (UA) NEGATIVE (NEGATIVE); KETONES,URINE NEGATIVE (NEGATIVE); LEUKOCYTE ESTERASE ,URINE NEGATIVE (NEGATIVE); NITRITE,URINE NEGATIVE (NEGATIVE); PH,URINE 8 (5-9); PROTEIN,URINE 2+ (NEGATIVE); UROBILINOGEN,URINE NORMAL (NORMAL)
[2018-02-02 14:47] LABS: BACTERIA,URINE NEGATIVE /HPF; WBC,URINE RARE /HPF
[2018-02-02 15:46] LABS: BUN/CREATININE RATIO 8; CALCIUM 8.6 MG/DL (8.5-10.1); CARBON DIOXIDE 24 MMOL/L (21-32); CHLORIDE 103 MMOL/L (98-107); CREATININE SERUM 1.02 MG/DL (0.60-1.30); GFR ESTIMATED > 60; GLUCOSE 99 MG/DL (70-105); POTASSIUM 3.4 MMOL/L (3.6-5.0); SODIUM 140 MMOL/L (135-145)
[2018-02-02 15:55] LABS: SALICYLATE 35.9 MG/DL (5.0-20.0)
[2018-02-02 17:45] LABS: BILIRUBIN,URINE NEGATIVE (NEGATIVE); CLARITY,URINE CLEAR; COLOR,URINE YELLOW; GLUCOSE, URINE (UA) NEGATIVE (NEGATIVE); KETONES,URINE NEGATIVE (NEGATIVE); LEUKOCYTE ESTERASE ,URINE NEGATIVE (NEGATIVE); NITRITE,URINE NEGATIVE (NEGATIVE); PH,URINE 8 (5-9); PROTEIN,URINE 3+ (NEGATIVE); UROBILINOGEN,URINE NORMAL (NORMAL)
[2018-02-02 17:46] LABS: BUN/CREATININE RATIO 8; CALCIUM 8.6 MG/DL (8.5-10.1); CARBON DIOXIDE 25 MMOL/L (21-32); CHLORIDE 102 MMOL/L (98-107); CREATININE SERUM 0.98 MG/DL (0.60-1.30); GFR ESTIMATED > 60; GLUCOSE 97 MG/DL (70-105); POTASSIUM 3.3 MMOL/L (3.6-5.0); SALICYLATE 29.8 MG/DL (5.0-20.0); SODIUM 139 MMOL/L (135-145)
[2018-02-02 19:39] LABS: BILIRUBIN,URINE NEGATIVE (NEGATIVE); CLARITY,URINE CLEAR; COLOR,URINE YELLOW; GLUCOSE, URINE (UA) 1+ (NEGATIVE); KETONES,URINE NEGATIVE (NEGATIVE); LEUKOCYTE ESTERASE ,URINE NEGATIVE (NEGATIVE); NITRITE,URINE NEGATIVE (NEGATIVE); PH,URINE 8 (5-9); PROTEIN,URINE 3+ (NEGATIVE); UROBILINOGEN,URINE NORMAL (NORMAL)
[2018-02-02 19:49] LABS: BUN/CREATININE RATIO 9; CALCIUM 8.4 MG/DL (8.5-10.1); CARBON DIOXIDE 25 MMOL/L (21-32); CHLORIDE 102 MMOL/L (98-107); GFR ESTIMATED > 60; GLUCOSE 96 MG/DL (70-105); POTASSIUM 3.2 MMOL/L (3.6-5.0); SALICYLATE 26.2 MG/DL (5.0-20.0); SODIUM 138 MMOL/L (135-145)
[2018-02-02 21:25] LABS: BUN/CREATININE RATIO 8; CALCIUM 8.5 MG/DL (8.5-10.1); CARBON DIOXIDE 25 MMOL/L (21-32); CHLORIDE 103 MMOL/L (98-107); CREATININE SERUM 0.96 MG/DL (0.60-1.30); GFR ESTIMATED > 60; GLUCOSE 104 MG/DL (70-105); SALICYLATE 23.4 MG/DL (5.0-20.0); SODIUM 138 MMOL/L (135-145)
[2018-02-03] VITALS (12 sets, daily range): BP systolic 101–140; BP diastolic 69–80
[2018-02-03] MEDS: POTASSIUM CL 10MEQ/50ML IVPB 50 ML IV SCH ×3 (00:11→06:36)
[2018-02-03] MEDS: D5W 1000 ML IV SOLUTION 1,000 ML IV SCH ×2 (01:13→07:34)
[2018-02-03] MEDS: SODIUM BICARBONATE 8.4% VIAL 150 MEQ in D5W 1000 ML IV SOLUTION 1,000 ML IV SCH (01:13)
[2018-02-03 04:11] LABS: BASOPHILS % (AUTO) 0 % (0-10); EOSINOPHILS # (AUTO) 0.3 10^3/uL (0.0-0.3); EOSINOPHILS % (AUTO) 3 % (0-10); HEMATOCRIT 40 % (40-54); HEMOGLOBIN 13.6 G/DL (13.3-17.7); LYMPHOCYTES # (AUTO) 2.7 X 10^3 (1.0-4.0); LYMPHOCYTES % (AUTO) 26 % (12-44); MEAN CORPUSCULAR HEMOGLOBIN 27 PG (25-34); MEAN CORPUSCULAR HGB CONC 34 G/DL (32-36); MEAN CORPUSCULAR VOLUME 80 FL (80-99); MEAN PLATELET VOLUME 10.4 FL (7.4-10.4); MONOCYTES % (AUTO) 10 % (0-12); NEUTROPHILS # (AUTO) 6.1 X 10^3 (1.8-7.8); NEUTROPHILS % (AUTO) 60 % (42-75); PLATELET COUNT 236 10^3/uL (130-400); RED BLOOD COUNT 4.97 10^6/uL (4.35-5.85); RED CELL DISTRIBUTION WIDTH 13.4 % (10.0-14.5); WHITE BLOOD COUNT 10.1 10^3/uL (4.3-11.0)
[2018-02-03 04:34] LABS: BUN/CREATININE RATIO 9; CARBON DIOXIDE 21 MMOL/L (21-32); CHLORIDE 105 MMOL/L (98-107); CREATININE SERUM 0.88 MG/DL (0.60-1.30); POTASSIUM 4.1 MMOL/L (3.6-5.0); SODIUM 136 MMOL/L (135-145)
[2018-02-03 04:35] LABS: CALCIUM 8.6 MG/DL (8.5-10.1); GFR ESTIMATED > 60; GLUCOSE 96 MG/DL (70-105); MAGNESIUM 2.3 MG/DL (1.8-2.4); PHOSPHORUS 3.1 MG/DL (2.3-4.7); SALICYLATE 14.2 MG/DL (5.0-20.0)
[2018-02-03] MEDS: KCL 20 MEQ TAB (K-DUR) PO SCH (06:37)
[2018-02-03] MEDS: MAGNESIUM 1 GM/100 ML IVPB 100 ML IV SCH (06:37)
--- NOTE | 2018-02-03 09:38 | Progress Note (SOAP) ---
Subjective Review of Systems Time Seen by Provider: 11:30 Objective Exam Last Set of Vital Signs Vital Signs Date Time Temp Pulse Resp B/P (MAP) Pulse Ox O2 Delivery O2 Flow Rate FiO2 02/03/18 09:00 60 16 115/70 (85) 96 Room Air 02/03/18 08:00 98.0 02/02/18 07:00 2.00 02/02/18 02:05 21 Capillary Refill : Less Than 3 Seconds I&O Intake and Output 02/03/18 00:00 Intake Total 6830 ml Output Total 2125 ml Balance 4705 ml Intake Oral 2680 ml IV Total 4150 ml Output Urine Total 2125 ml Daily Weight Change No Results/Procedures Lab Laboratory Tests 02/02/18 10:30: Urine Color YELLOW, Urine Clarity CLEAR, Urine pH 7, Urine Specific [place] 1.010L, Urine Protein 2+H, Urine Glucose (UA) NEGATIVE, Urine Ketones NEGATIVE, Urine Nitrite NEGATIVE, Urine Bilirubin NEGATIVE, Urine Urobilinogen NORMAL, Urine Leukocyte Esterase NEGATIVE, Urine RBC (Auto) NEGATIVE, Urine RBC NONE, Urine WBC RARE, Urine Squamous Epithelial Cells NONE, Urine Crystals NONE, Urine Bacteria NEGATIVE, Urine Casts NONE, Urine Mucus NEGATIVE, Urine Culture Indicated NO 02/02/18 11:00: Sodium Level 141, Potassium Level 3.3L, Chloride Level 103, Carbon Dioxide Level 24, Anion Gap 14, Blood Urea Nitrogen 9, Creatinine 1.14, Estimat Glomerular Filtration Rate > 60, BUN/Creatinine Ratio 8, Glucose Level 108H, Calcium Level 8.8, Salicylates Level 48.4*H 02/02/18 12:50: Sodium Level 141, Potassium Level 3.3L, Chloride Level 103, Carbon Dioxide Level 25, Anion Gap 13, Blood Urea Nitrogen 9, Creatinine 1.12, Estimat Glomerular Filtration Rate > 60, BUN/Creatinine Ratio 8, Glucose Level 106H, Calcium Level 8.7, Salicylates Level 42.6*H, Corrected Calcium 8.5, Phosphorus Level 4.1, Magnesium Level 2.3, Total Bilirubin 0.2, Aspartate Amino Transf (AST /SGOT) 16, Alanine Aminotransferase (ALT/SGPT) 35, Alkaline Phosphatase 51, Total Protein 7.0, Albumin 4.2 02/02/18 14:15: Urine Color YELLOW, Urine Clarity CLEAR, Urine pH 8, Urine Specific [place] 1.015L, Urine Protein 2+H, Urine Glucose (UA) NEGATIVE, Urine Ketones NEGATIVE, Urine Nitrite NEGATIVE, Urine Bilirubin NEGATIVE, Urine Urobilinogen NORMAL, Urine Leukocyte Esterase NEGATIVE, Urine RBC (Auto) NEGATIVE, Urine RBC NONE, Urine WBC RARE, Urine Squamous Epithelial Cells NONE, Urine Crystals NONE, Urine Bacteria NEGATIVE, Urine Casts NONE, Urine Mucus NEGATIVE, Urine Culture Indicated NO 02/02/18 15:18: Sodium Level 140, Potassium Level 3.4L, Chloride Level 103, Carbon Dioxide Level 24, Anion Gap 13, Blood Urea Nitrogen 8, Creatinine 1.02, Estimat Glomerular Filtration Rate > 60, BUN/Creatinine Ratio 8, Glucose Level 99, Calcium Level 8.6, Salicylates Level 35.9*H 02/02/18 17:14: Sodium Level 139, Potassium Level 3.3L, Chloride Level 102, Carbon Dioxide Level 25, Anion Gap 12, Blood Urea Nitrogen 8, Creatinine 0.98, Estimat Glomerular Filtration Rate > 60, BUN/Creatinine Ratio 8, Glucose Level 97, Calcium Level 8.6, Salicylates Level 29.8H 02/02/18 17:35: Urine Color YELLOW, Urine Clarity CLEAR, Urine pH 8, Urine Specific [place] 1.010L, Urine Protein 3+H, Urine Glucose (UA) NEGATIVE, Urine Ketones NEGATIVE, Urine Nitrite NEGATIVE, Urine Bilirubin NEGATIVE, Urine Urobilinogen NORMAL, Urine Leukocyte Esterase NEGATIVE, Urine RBC (Auto) NEGATIVE 02/02/18 18:58: Sodium Level 138, Potassium Level 3.2L, Chloride Level 102, Carbon Dioxide Level 25, Anion Gap 11, Blood Urea Nitrogen 8, Creatinine 0.90, Estimat Glomerular Filtration Rate > 60, BUN/Creatinine Ratio 9, Glucose Level 96, Calcium Level 8.4L, Salicylates Level 26.2H 02/02/18 19:25: Urine Color YELLOW, Urine Clarity CLEAR, Urine pH 8, Urine Specific [place] 1.010L, Urine Protein 3+H, Urine Glucose (UA) 1+H, Urine Ketones NEGATIVE, Urine Nitrite NEGATIVE, Urine Bilirubin NEGATIVE, Urine Urobilinogen NORMAL, Urine Leukocyte Esterase NEGATIVE, Urine RBC (Auto) NEGATIVE 02/02/18 20:59: Sodium Level 138, Potassium Level 3.0L, Chloride Level 103, Carbon Dioxide Level 25, Anion Gap 10, Blood Urea Nitrogen 8, Creatinine 0.96, Estimat Glomerular Filtration Rate > 60, BUN/Creatinine Ratio 8, Glucose Level 104, Calcium Level 8.5, Salicylates Level 23.4H 02/03/18 03:58: Sodium Level 136, Potassium Level 4.1, Chloride Level 105, Carbon Dioxide Level 21, Anion Gap 10, Blood Urea Nitrogen 8, Creatinine 0.88, Estimat Glomerular Filtration Rate > 60, BUN/Creatinine Ratio 9, Glucose Level 96, Calcium Level 8.6, Salicylates Level 14.2, White Blood Count 10.1, Red Blood Count 4.97, Hemoglobin 13.6, Hematocrit 40, Mean Corpuscular Volume 80, Mean Corpuscular Hemoglobin 27, Mean Corpuscular Hemoglobin Concent 34, Red Cell Distribution Width 13.4, Platelet Count 236, Mean Platelet Volume 10.4, Neutrophils (%) (Auto ) 60, Lymphocytes (%) (Auto) 26, Monocytes (%) (Auto) 10, Eosinophils (%) (Auto ) 3, Basophils (%) (Auto) 0, Neutrophils # (Auto) 6.1, Lymphocytes # (Auto) 2.7 , Monocytes # (Auto) 1.0, Eosinophils # (Auto) 0.3, Basophils # (Auto) 0.0, Phosphorus Level 3.1, Magnesium Level 2.3 Radiology CXR with no acute abnormalities Assessment/Plan Assessment/Plan (1) Salicylate overdose Status: Acute Qualifiers: Qualified Codes: T39.092A - Poisoning by salicylates, intentional self-harm , initial encounter (2) Suicide attempt Status: Acute (3) Bipolar II disorder Status: Chronic (4) Polysubstance abuse Status: Chronic (5) Tobacco abuse Status: Chronic (6) Hyperphosphatemia Status: Resolved (7) Hypermagnesemia Status: Resolved (8) Leukocytosis Status: Acute Qualifiers: Qualified Codes: D72.829 - Elevated white blood cell count, unspecified (9) Obesity (BMI 30-39.9) Status: Chronic Clinical Quality Measures DVT/VTE Risk/Contraindication: Risk Factor Score Per Nursin RFS Level Per Nursing on Admit: 2=Moderate JACQUELYN HILLS DO Feb 03, 2018 09:38
--- NOTE | 2018-02-03 11:47 | Discharge Summary ---
Diagnosis/Chief Complaint Date of Admission Feb 02, 2018 at 00:51 Date of Discharge 02/03/18 Admission Diagnosis Admission Diagnosis ASA Overdose Suicide Attempt Bipolar 2 Disorder Polysubstance Abuse Tobacco Abuse Obesity, BMI 35.8 Discharge Diagnosis (1) Salicylate overdose Status: Acute Assessment & Plan: 02/02 -admitted to ICU, bicarb gtt -initial salicylate level 68.9, trending down --> 64.8 --> 58.9 --> 53.8 --> 48.4 -continue bicarb gtt until salicylate level <35 -consult to mental health for evaluation 02/03 -salicylate level back WNL, off bicarb since last night -evaluated by mental health this morning and appt made for outpatient follow up at 1300 today -discharge home to keep appt this afternoon Qualifiers: Qualified Codes: T39.092A - Poisoning by salicylates, intentional self-harm , initial encounter (2) Suicide attempt Status: Acute Assessment & Plan: 02/02 -pt's fourth attempt via ASA overdose -consult to mental health 02/03 -pt denies current suicidal ideation -evaluated by mental health and arrangements made for follow up this afternoon with counselor -discharge and keep appt for 1300 today (3) Bipolar II disorder Status: Chronic (4) Polysubstance abuse Status: Chronic Assessment & Plan: -positive for amphetamines and methamphetamines on admission (5) Tobacco abuse Status: Chronic Assessment & Plan: -cessation encouraged (6) Hyperphosphatemia Status: Resolved (7) Hypermagnesemia Status: Resolved (8) Leukocytosis Status: Acute Assessment & Plan: 02/02 -WBC 13.9 --> 14.1 -likely reactive in nature, no other s/s of infection -recheck in AM 02/03 -resolved Qualifiers: Qualified Codes: D72.829 - Elevated white blood cell count, unspecified (9) Obesity (BMI 30-39.9) Status: Chronic Assessment & Plan: BMI 35.8 Chief Complaint/HPI Chief Complaint/HPI 27 year old male admitted after presenting to ED last night with suicide attempt by ingesting 100 tablets of 325 mg aspirin. Pt has long history of mental illness, including several suicide attempts. This is his fourth attempt via ASA overdose; nursing staff report that he told them he used this method "because it is the one that works". Previous ASA overdoses in 2016, 2015, 2012. Patient reportedly sees [facility], and is about 2 weeks late for his monthly Invega shot - reportedly last received on 12/28/17. Patient reportedly took the 100 tablets around 1900, and presented to the ED a few hours later. He was given activated charcoal, poison control was contacted , and he has been admitted to the ICU on sodium bicarb gtt. He was also noted to be positive for amphetamines and methamphetamines on admission, with a known history of polysubstance abuse. Other than sleepiness, the patient has not exhibited any other signs of toxicity. Discharge Summary-Simple/Stand Consultations Discharge Physical Examination Allergies: Coded Allergies: No Known Drug Allergies (Unverified , 01/12/09) Vitals & I&Os Vital Sign - Last 12Hours Date Time Temp Pulse Resp B/P (MAP) Pulse Ox O2 Delivery O2 Flow Rate FiO2 02/03/18 11:00 73 17 128/80 (96) Room Air 02/03/18 10:00 97 02/03/18 08:00 98.0 02/02/18 07:00 2.00 02/02/18 02:05 21 Intake and Output 02/03/18 00:00 Intake Total 2110 ml Output Total 975 ml Balance 1135 ml General Appearance: Alert, Oriented X3, Cooperative, No Acute Distress HEENT: Atraumatic, EOMI, Mucous Memb Moist/[place] Respiratory: Normal Air Movement, Other (scattered wheezing) Cardiovascular: Regular Rate, Normal S1, Normal S2 Abdominal: Normal Bowel Sounds, Soft, No Tenderness, No Masses Extremities: No Clubbing, No Cyanosis Skin: No Rashes, No Significant Lesion Neuro: Normal Speech, Normal Tone, Sensation Intact, Cranial Nerves 3-12 NL Psych/Mental Status: Mental Status NL, Mood NL Hospital Course See final discharge diagnosis. Labs Laboratory Tests Test 02/02/18 00:32 02/02/18 02:40 02/02/18 05:32 Blood Gas Puncture Site R RAD L RAD R RAD Blood Gas Patient Temperature 99.9 99.3 99.1 Arterial Blood pH 7.43 7.45 7.46 Arterial Blood Partial Pressure CO2 32 MMHG 35 MMHG 35 MMHG Arterial Blood Partial Pressure O2 109 MMHG 112 MMHG 125 MMHG Arterial Blood HCO3 21 MMOL/L 24 MMOL/L 24 MMOL/L Arterial Blood Total CO2 21.6 MMOL/L 25.3 MMOL/L 25.0 MMOL/L Arterial Blood Oxygen Saturation 99 % 99 % 99 % Arterial Blood Base Excess -2.8 MMOL/L 0.7 MMOL/L 0.6 MMOL/L [place] Test YES-POS YES-POS YES-POS Blood Gas Ventilator Setting NO NO NO Blood Gas Inspired Oxygen RA 2L/NC 2L/NC Laboratory Tests Test 02/01/18 23:06 02/01/18 23:10 02/02/18 00:32 02/02/18 02:15 Range/Units White Blood Count 13.9 H 4.3-11.0 10^3/uL Red Blood Count 5.48 4.35-5.85 10^6/uL Hemoglobin 15.4 13.3-17.7 G/DL Hematocrit 43 40-54 % Mean Corpuscular Volume 78 L 80-99 FL Mean Corpuscular Hemoglobin 28 25-34 PG Mean Corpuscular Hemoglobin Concent 36 32-36 G/DL Red Cell Distribution Width 13.3 10.0-14.5 % Platelet Count 262 130-400 10^3/uL Mean Platelet Volume 10.3 7.4-10.4 FL Neutrophils (%) (Auto) 70 42-75 % Lymphocytes (%) (Auto) 19 12-44 % Monocytes (%) (Auto) 8 0-12 % Eosinophils (%) (Auto) 3 0-10 % Basophils (%) (Auto) 0 0-10 % Neutrophils # (Auto) 9.7 H 1.8-7.8 X 10^3 Lymphocytes # (Auto) 2.7 1.0-4.0 X 10^3 Monocytes # (Auto) 1.1 H 0.0-1.0 X 10^3 Eosinophils # (Auto) 0.4 H 0.0-0.3 10^3/uL Basophils # (Auto) 0.0 0.0-0.1 10^3/uL Sodium Level 142 135-145 MMOL/L Potassium Level 3.6 3.6-5.0 MMOL/L Chloride Level 104 98-107 MMOL/L Carbon Dioxide Level 20 L 21-32 MMOL/L Anion Gap 18 H 5-14 MMOL/L Blood Urea Nitrogen 8 7-18 MG/DL Creatinine 1.04 0.60-1.30 MG/DL Estimat Glomerular Filtration Rate > 60 BUN/Creatinine Ratio 8 Glucose Level 101 70-105 MG/DL Calcium Level 10.1 8.5-10.1 MG/DL Corrected Calcium 8.5-10.1 MG/DL Total Bilirubin 0.2 0.1-1.0 MG/DL Aspartate Amino Transf (AST/SGOT) 24 5-34 U/L Alanine Aminotransferase (ALT/SGPT) 40 0-55 U/L Alkaline Phosphatase 63 40-136 U/L Total Protein 8.7 H 6.4-8.2 GM/DL Albumin 5.0 H 3.2-4.5 GM/DL Salicylates Level 68.9 *H 5.0-20.0 MG/DL Acetaminophen Level < 10 L 10-30 UG/ML Serum Alcohol < 10 <10 MG/DL Urine Color YELLOW YELLOW Urine Clarity CLEAR CLEAR Urine pH 7 8 5-9 Urine Specific [place] 1.005 L 1.010 L 1.016-1.022 Urine Protein NEGATIVE NEGATIVE NEGATIVE Urine Glucose (UA) NEGATIVE NEGATIVE NEGATIVE Urine Ketones NEGATIVE NEGATIVE NEGATIVE Urine Nitrite NEGATIVE NEGATIVE NEGATIVE Urine Bilirubin NEGATIVE NEGATIVE NEGATIVE Urine Urobilinogen NORMAL NORMAL NORMAL MG/DL Urine Leukocyte Esterase NEGATIVE NEGATIVE NEGATIVE Urine RBC (Auto) NEGATIVE NEGATIVE NEGATIVE Urine RBC NONE NONE /HPF Urine WBC NONE RARE /HPF Urine Squamous Epithelial Cells NONE RARE /HPF Urine Crystals NONE NONE /LPF Urine Bacteria NEGATIVE NEGATIVE /HPF Urine Casts NONE NONE /LPF Urine Mucus NEGATIVE NEGATIVE /LPF Urine Culture Indicated NO NO Urine Opiates Screen NEGATIVE NEGATIVE Urine Oxycodone Screen NEGATIVE NEGATIVE Urine Methadone Screen NEGATIVE NEGATIVE Urine Propoxyphene Screen NEGATIVE NEGATIVE Urine Barbiturates Screen NEGATIVE NEGATIVE Ur Tricyclic Antidepressants Screen NEGATIVE NEGATIVE Urine Phencyclidine Screen NEGATIVE NEGATIVE Urine Amphetamines Screen POSITIVE H NEGATIVE Urine Methamphetamines Screen POSITIVE H NEGATIVE Urine Benzodiazepines Screen NEGATIVE NEGATIVE Urine Cocaine Screen NEGATIVE NEGATIVE Urine Cannabinoids Screen NEGATIVE NEGATIVE Blood Gas Puncture Site R RAD Blood Gas Patient Temperature 99.9 Arterial Blood pH 7.43 7.37-7.43 Arterial Blood Partial Pressure CO2 32 L 35-45 MMHG Arterial Blood Partial Pressure O2 109 H 79-93 MMHG Arterial Blood HCO3 21 L 23-27 MMOL/L Arterial Blood Total CO2 21.6 21.0-31.0 MMOL/L Arterial Blood Oxygen Saturation 99 94-100 % Arterial Blood Base Excess -2.8 L -2.5-2.5 MMOL/L [place] Test YES-POS Blood Gas Ventilator Setting NO Blood Gas Inspired Oxygen RA Test 02/02/18 02:40 02/02/18 03:50 02/02/18 05:00 02/02/18 05:32 Range/Units Blood Gas Puncture Site L RAD R RAD Blood Gas Patient Temperature 99.3 99.1 Arterial Blood pH 7.45 H 7.46 H 7.37-7.43 Arterial Blood Partial Pressure CO2 35 35 35-45 MMHG Arterial Blood Partial Pressure O2 112 H 125 H 79-93 MMHG Arterial Blood HCO3 24 24 23-27 MMOL/L Arterial Blood Total CO2 25.3 25.0 21.0-31.0 MMOL/L Arterial Blood Oxygen Saturation 99 99 94-100 % Arterial Blood Base Excess 0.7 0.6 -2.5-2.5 MMOL/L [place] Test YES-POS YES-POS Blood Gas Ventilator Setting NO NO Blood Gas Inspired Oxygen 2L/NC 2L/NC White Blood Count 14.1 H 4.3-11.0 10^3/uL Red Blood Count 5.64 4.35-5.85 10^6/uL Hemoglobin 15.1 13.3-17.7 G/DL Hematocrit 44 40-54 % Mean Corpuscular Volume 77 L 80-99 FL Mean Corpuscular Hemoglobin 27 25-34 PG Mean Corpuscular Hemoglobin Concent 35 32-36 G/DL Red Cell Distribution Width 13.4 10.0-14.5 % Platelet Count 268 130-400 10^3/uL Mean Platelet Volume 10.6 H 7.4-10.4 FL Neutrophils (%) (Auto) 81 H 42-75 % Lymphocytes (%) (Auto) 13 12-44 % Monocytes (%) (Auto) 6 0-12 % Eosinophils (%) (Auto) 0 0-10 % Basophils (%) (Auto) 0 0-10 % Neutrophils # (Auto) 11.5 H 1.8-7.8 X 10^3 Lymphocytes # (Auto) 1.8 1.0-4.0 X 10^3 Monocytes # (Auto) 0.8 0.0-1.0 X 10^3 Eosinophils # (Auto) 0.0 0.0-0.3 10^3/uL Basophils # (Auto) 0.0 0.0-0.1 10^3/uL Neutrophils % (Manual) 78 % Lymphocytes % (Manual) 18 % Monocytes % (Manual) 3 % Eosinophils % (Manual) 1 % Basophils % (Manual) 0 % Band Neutrophils 0 % Blood Morphology Comment NORMAL Sodium Level 146 H 144 135-145 MMOL/L Potassium Level 3.6 3.7 3.6-5.0 MMOL/L Chloride Level 107 106 98-107 MMOL/L Carbon Dioxide Level 21 19 L 21-32 MMOL/L Anion Gap 18 H 19 H 5-14 MMOL/L Blood Urea Nitrogen 7 7 7-18 MG/DL Creatinine 1.09 1.12 0.60-1.30 MG/DL Estimat Glomerular Filtration Rate > 60 > 60 BUN/Creatinine Ratio 6 6 Glucose Level 110 H 119 H 70-105 MG/DL Calcium Level 9.8 9.4 8.5-10.1 MG/DL Phosphorus Level 4.8 H 2.3-4.7 MG/DL Magnesium Level 2.7 H 1.8-2.4 MG/DL Salicylates Level 64.8 *H 58.9 *H 5.0-20.0 MG/DL Test 02/02/18 06:35 02/02/18 09:00 02/02/18 10:30 02/02/18 11:00 Range/Units Urine Color YELLOW YELLOW Urine Clarity CLEAR CLEAR Urine pH 7 7 5-9 Urine Specific [place] 1.010 L 1.010 L 1.016-1.022 Urine Protein 2+ H 2+ H NEGATIVE Urine Glucose (UA) NEGATIVE NEGATIVE NEGATIVE Urine Ketones NEGATIVE NEGATIVE NEGATIVE Urine Nitrite NEGATIVE NEGATIVE NEGATIVE Urine Bilirubin NEGATIVE NEGATIVE NEGATIVE Urine Urobilinogen NORMAL NORMAL NORMAL MG/DL Urine Leukocyte Esterase NEGATIVE NEGATIVE NEGATIVE Urine RBC (Auto) NEGATIVE NEGATIVE NEGATIVE Urine RBC NONE NONE /HPF Urine WBC RARE RARE /HPF Urine Squamous Epithelial Cells NONE NONE /HPF Urine Crystals NONE NONE /LPF Urine Bacteria NEGATIVE NEGATIVE /HPF Urine Casts NONE NONE /LPF Urine Mucus NEGATIVE NEGATIVE /LPF Urine Culture Indicated NO NO Sodium Level 142 141 135-145 MMOL/L Potassium Level 3.4 L 3.3 L 3.6-5.0 MMOL/L Chloride Level 105 103 98-107 MMOL/L Carbon Dioxide Level 23 24 21-32 MMOL/L Anion Gap 14 14 5-14 MMOL/L Blood Urea Nitrogen 9 9 7-18 MG/DL Creatinine 1.12 1.14 0.60-1.30 MG/DL Estimat Glomerular Filtration Rate > 60 > 60 BUN/Creatinine Ratio 8 8 Glucose Level 107 H 108 H 70-105 MG/DL Calcium Level 9.2 8.8 8.5-10.1 MG/DL Salicylates Level 53.8 *H 48.4 *H 5.0-20.0 MG/DL Test 02/02/18 12:50 02/02/18 14:15 02/02/18 15:18 02/02/18 17:14 Range/Units Sodium Level 141 140 139 135-145 MMOL/L Potassium Level 3.3 L 3.4 L 3.3 L 3.6-5.0 MMOL/L Chloride Level 103 103 102 98-107 MMOL/L Carbon Dioxide Level 25 24 25 21-32 MMOL/L Anion Gap 13 13 12 5-14 MMOL/L Blood Urea Nitrogen 9 8 8 7-18 MG/DL Creatinine 1.12 1.02 0.98 0.60-1.30 MG/DL Estimat Glomerular Filtration Rate > 60 > 60 > 60 BUN/Creatinine Ratio 8 8 8 Glucose Level 106 H 99 97 70-105 MG/DL Calcium Level 8.7 8.6 8.6 8.5-10.1 MG/DL Corrected Calcium 8.5 8.5-10.1 MG/DL Phosphorus Level 4.1 2.3-4.7 MG/DL Magnesium Level 2.3 1.8-2.4 MG/DL Total Bilirubin 0.2 0.1-1.0 MG/DL Aspartate Amino Transf (AST/SGOT) 16 5-34 U/L Alanine Aminotransferase (ALT/SGPT) 35 0-55 U/L Alkaline Phosphatase 51 40-136 U/L Total Protein 7.0 6.4-8.2 GM/DL Albumin 4.2 3.2-4.5 GM/DL Salicylates Level 42.6 *H 35.9 *H 29.8 H 5.0-20.0 MG/DL Urine Color YELLOW Urine Clarity CLEAR Urine pH 8 5-9 Urine Specific [place] 1.015 L 1.016-1.022 Urine Protein 2+ H NEGATIVE Urine Glucose (UA) NEGATIVE NEGATIVE Urine Ketones NEGATIVE NEGATIVE Urine Nitrite NEGATIVE NEGATIVE Urine Bilirubin NEGATIVE NEGATIVE Urine Urobilinogen NORMAL NORMAL MG/DL Urine Leukocyte Esterase NEGATIVE NEGATIVE Urine RBC (Auto) NEGATIVE NEGATIVE Urine RBC NONE /HPF Urine WBC RARE /HPF Urine Squamous Epithelial Cells NONE /HPF Urine Crystals NONE /LPF Urine Bacteria NEGATIVE /HPF Urine Casts NONE /LPF Urine Mucus NEGATIVE /LPF Urine Culture Indicated NO Test 02/02/18 17:35 02/02/18 18:58 02/02/18 19:25 02/02/18 20:59 Range/Units Urine Color YELLOW YELLOW Urine Clarity CLEAR CLEAR Urine pH 8 8 5-9 Urine Specific [place] 1.010 L 1.010 L 1.016-1.022 Urine Protein 3+ H 3+ H NEGATIVE Urine Glucose (UA) NEGATIVE 1+ H NEGATIVE Urine Ketones NEGATIVE NEGATIVE NEGATIVE Urine Nitrite NEGATIVE NEGATIVE NEGATIVE Urine Bilirubin NEGATIVE NEGATIVE NEGATIVE Urine Urobilinogen NORMAL NORMAL NORMAL MG/DL Urine Leukocyte Esterase NEGATIVE NEGATIVE NEGATIVE Urine RBC (Auto) NEGATIVE NEGATIVE NEGATIVE Sodium Level 138 138 135-145 MMOL/L Potassium Level 3.2 L 3.0 L 3.6-5.0 MMOL/L Chloride Level 102 103 98-107 MMOL/L Carbon Dioxide Level 25 25 21-32 MMOL/L Anion Gap 11 10 5-14 MMOL/L Blood Urea Nitrogen 8 8 7-18 MG/DL Creatinine 0.90 0.96 0.60-1.30 MG/DL Estimat Glomerular Filtration Rate > 60 > 60 BUN/Creatinine Ratio 9 8 Glucose Level 96 104 70-105 MG/DL Calcium Level 8.4 L 8.5 8.5-10.1 MG/DL Salicylates Level 26.2 H 23.4 H 5.0-20.0 MG/DL Test 02/03/18 03:58 Range/Units White Blood Count 10.1 4.3-11.0 10^3/uL Red Blood Count 4.97 4.35-5.85 10^6/uL Hemoglobin 13.6 13.3-17.7 G/DL Hematocrit 40 40-54 % Mean Corpuscular Volume 80 80-99 FL Mean Corpuscular Hemoglobin 27 25-34 PG Mean Corpuscular Hemoglobin Concent 34 32-36 G/DL Red Cell Distribution Width 13.4 10.0-14.5 % Platelet Count 236 130-400 10^3/uL Mean Platelet Volume 10.4 7.4-10.4 FL Neutrophils (%) (Auto) 60 42-75 % Lymphocytes (%) (Auto) 26 12-44 % Monocytes (%) (Auto) 10 0-12 % Eosinophils (%) (Auto) 3 0-10 % Basophils (%) (Auto) 0 0-10 % Neutrophils # (Auto) 6.1 1.8-7.8 X 10^3 Lymphocytes # (Auto) 2.7 1.0-4.0 X 10^3 Monocytes # (Auto) 1.0 0.0-1.0 X 10^3 Eosinophils # (Auto) 0.3 0.0-0.3 10^3/uL Basophils # (Auto) 0.0 0.0-0.1 10^3/uL Sodium Level 136 135-145 MMOL/L Potassium Level 4.1 3.6-5.0 MMOL/L Chloride Level 105 98-107 MMOL/L Carbon Dioxide Level 21 21-32 MMOL/L Anion Gap 10 5-14 MMOL/L Blood Urea Nitrogen 8 7-18 MG/DL Creatinine 0.88 0.60-1.30 MG/DL Estimat Glomerular Filtration Rate > 60 BUN/Creatinine Ratio 9 Glucose Level 96 70-105 MG/DL Calcium Level 8.6 8.5-10.1 MG/DL Phosphorus Level 3.1 2.3-4.7 MG/DL Magnesium Level 2.3 1.8-2.4 MG/DL Salicylates Level 14.2 5.0-20.0 MG/DL Radiology Reviewed CXR with no acute abnormalities Discharge Condition at discharge stable, free from active suicidal ideation Instructions to patient/family Please see electronic discharge instructions given to patient. Discharge Medications Reviewed and agree with Discharge Medication list on patient's Discharge Instruction sheet Clinical Quality Measures DVT/VTE Risk/Contraindication: Risk Factor Score Per Nursin RFS Level Per Nursing on Admit: 2=Moderate Copy Copies To 1: BROCK DISLA MD, MARGARET E DO Feb 03, 2018 11:47
[2018-02-03] MEDS ORDERED: ALBU18HF2 IH (11:55)
--- NOTE | 2018-02-03 12:00 | Discharge Instructions ---
Discharge [facility] Discharge Medications New, Converted or Re-Newed RX: Transmitted to Pharmacy New Medications: Albuterol Sulfate (Ventolin Hfa) 18 Gm Hfa.aer.ad 18 GM IH Q4H PRN for WHEEZING for 30 Days, #1 INHALER Continued Medications: Paliperidone Palmitate (Invega Sustenna) 156 Mg/1 Ml Syringe 156 MG IM MONTHLY, EA Patient Instructions Patient Instructions -keep appointment with [facility] at 1 pm today -keep appointment with Dr. Disla on 02/10/18 at 1:20 pm -avoid all aspirin and aspirin containing products -recommend tobacco cessation -avoid alcohol and drug use -contact mental health line or crisis line if having suicidal thoughts Goal/Follow Up Appt: [facility], 1:[address] Disla 02/10/18 at 1:20 pm Return to The Hospital For: chest pain or pressure, shortness of breath out of normal and not relieved by rest, nausea or vomiting that makes you unable to keep down clear liquids for more than 24 hours, fever >101 for more than 2-3 days, severe pain not relieved by normal comfort measures and over the counter medications, if directed by mill tender second operator provider, or with any other emergent complaints or concerns Activity & Diet Discharge Diet: No Restrictions Activity as Tolerated: Yes Copy Copies To 1: BROCK DISLA MD, MARGARET E DO Feb 03, 2018 12:00
== END 2018-02-03 12:25 | disposition home or self-care (01) | DRG 918 ==
LOC: EDUNIT# 22:54 → ER 22:56 → ICU 02-02 00:51
PROVIDERS: ADMIT Family Medicine; ATTEND Family Medicine
DX: T39.092A Poisoning by salicylates, intentional self-harm, initial encounter (principal); F15.20 Other stimulant dependence, uncomplicated; R45.851 Suicidal ideations; F31.81 Bipolar II disorder; F12.20 Cannabis dependence, uncomplicated; R68.83 Chills (without fever); R61 Generalized hyperhidrosis; F41.9 Anxiety disorder, unspecified; J45.909 Unspecified asthma, uncomplicated; K21.9 Gastro-esophageal reflux disease without esophagitis; K31.84 Gastroparesis; M54.2 Cervicalgia; F90.9 Attention-deficit hyperactivity disorder, unspecified type; F63.9 Impulse disorder, unspecified; F17.210 Nicotine dependence, cigarettes, uncomplicated; E66.9 Obesity, unspecified; Z68.35 Body mass index [BMI] 35.0-35.9, adult
CPT/HCPCS: 36415; 36600; 71045; 80048; 80053; 80306; 80320; 80329; 81000; 81002; 82805; 83735; 84100; 85007; 85025; 85027; 87081; 93005; 93041; 99291

== ENCOUNTER 2018-02-06 18:08 | Emergency (ER) | payer OTHER ==
[~2018-02-06] VITALS: Ht 185.4 cm; Wt 126.1 kg
[~2018-02-06 18:08] MED LIST changes: +ALBU18HF2 IH; +PALI156D IM
[2018-02-06] MEDS ORDERED: fentaNYL INJECTION 100 MCG/2 ML AMP IVP ONE (18:30)
[2018-02-06] MEDS ORDERED: ONDANSETRON 4 MG/2 ML (SDV) Z0FRAN IVP ONE (18:30)
[2018-02-06 18:34] LABS: BASOPHILS % (AUTO) 0 % (0-10); EOSINOPHILS # (AUTO) 0.2 10^3/uL (0.0-0.3); EOSINOPHILS % (AUTO) 2 % (0-10); HEMATOCRIT 41 % (40-54); LYMPHOCYTES # (AUTO) 1.9 X 10^3 (1.0-4.0); LYMPHOCYTES % (AUTO) 16 % (12-44); MEAN CORPUSCULAR HEMOGLOBIN 27 PG (25-34); MEAN CORPUSCULAR HGB CONC 35 G/DL (32-36); MEAN CORPUSCULAR VOLUME 79 FL (80-99); MEAN PLATELET VOLUME 10.2 FL (7.4-10.4); MONOCYTES # (AUTO) 0.8 X 10^3 (0.0-1.0); MONOCYTES % (AUTO) 6 % (0-12); NEUTROPHILS % (AUTO) 76 % (42-75); PLATELET COUNT 261 10^3/uL (130-400); RED BLOOD COUNT 5.16 10^6/uL (4.35-5.85); RED CELL DISTRIBUTION WIDTH 13.4 % (10.0-14.5); WHITE BLOOD COUNT 11.9 10^3/uL (4.3-11.0)
[2018-02-06 18:40] LABS: BILIRUBIN,URINE NEGATIVE (NEGATIVE); CLARITY,URINE CLEAR; COLOR,URINE YELLOW; GLUCOSE, URINE (UA) NEGATIVE (NEGATIVE); KETONES,URINE NEGATIVE (NEGATIVE); LEUKOCYTE ESTERASE ,URINE NEGATIVE (NEGATIVE); NITRITE,URINE NEGATIVE (NEGATIVE); PH,URINE 8 (5-9); PROTEIN,URINE NEGATIVE (NEGATIVE); UROBILINOGEN,URINE NORMAL (NORMAL)
[2018-02-06 18:49] LABS: BACTERIA,URINE NEGATIVE /HPF; SQUAMOUS EPITHELIAL CELL,UR 0-2 /HPF
[2018-02-06 18:55] LABS: ALANINE AMINOTRANSFERASE 27 U/L (0-55); ALBUMIN 4.1 GM/DL (3.2-4.5); ALKALINE PHOSPHATASE 62 U/L (40-136); AMYLASE 25 U/L (25-125); BILIRUBIN,TOTAL 0.4 MG/DL (0.1-1.0); BUN/CREATININE RATIO 9; CARBON DIOXIDE 23 MMOL/L (21-32); CHLORIDE 107 MMOL/L (98-107); CREATININE SERUM 0.78 MG/DL (0.60-1.30); GFR ESTIMATED > 60; GLUCOSE 118 MG/DL (70-105); LIPASE 36 U/L (8-78); POTASSIUM 3.3 MMOL/L (3.6-5.0); SODIUM 139 MMOL/L (135-145); TOTAL PROTEIN 6.9 GM/DL (6.4-8.2)
--- NOTE | 2018-02-06 18:56 | Diagnostic Imaging Report ---
CHEST 1 VIEW, AP/PA ONLY Indication: Fatigue Comparison: 02/02/2018 Findings: No focal airspace disease in the visualized lungs. Please note that the posterior lower lobes are poorly evaluated by portable radiography. No pleural effusion or pneumothorax. Normal cardiomediastinal silhouette. Impression: No acute cardiopulmonary process by portable radiography. Dictated by: Dictated on workstation # [id number]
--- NOTE | 2018-02-06 18:59 | ED General ---
General Chief Complaint: General Problems/Pain Stated Complaint: CHEST PAIN,NAUSEA,TIRED,OVERDOSE WEDNESDAY ICE 2DAYS Nursing Triage Note: Pt ambulated to rm 10. Pt c/o fatigue and nodding off at work, abdominal pain and chest discomfort. Pt was in ICU last week for aspirin overdose. Nursing Sepsis Screen: No Definite Risk Source of Information: Patient Exam Limitations: No Limitations History of Present Illness Date Seen by Provider: Feb 06, 2018 Time Seen by Provider: 18:15 Initial Comments Patient is a 27-year-old male who presents to the emergency room with complaints of fatigue, nodding off at work, abdominal pain, nausea and chest pain. He reports that he was recently admitted to the ICU last week for an overdose in which she took 100 325 mg aspirin and attempted to kill himself. He reports that he's had the symptoms ever since he was discharged from the hospital. He also reports that he has not used illicit drugs since admission to hospital. Timing/Duration: 3-4 Days Associated Systoms: Malaise, Nausea/Vomiting Allergies and Home Medications Allergies Coded Allergies: No Known Drug Allergies (Unverified , 01/12/09) Home Medications Albuterol Sulfate 18 Gm Hfa.aer.ad, 18 GM IH Q4H PRN for WHEEZING Prescribed by: JACQUELYN HILLS on 02/03/18 1155 Paliperidone Palmitate 156 Mg/1 Ml Syringe, 156 MG IM MONTHLY, (Reported) Patient Home Medication List Home Medication List Reviewed: Yes Review of Systems Review of Systems Constitutional: see HPI; No chills, No fever; malaise Cardiovascular: see HPI, chest pain Gastrointestinal: see HPI, abdominal pain, nausea All Other Systems Reviewed Negative Unless Noted: Yes Past Uqotzig-Yxpjrn-Dnjrfb Hx Past Med/Social Hx: Reviewed Nursing Past Med/Soc Hx Patient Social History Alcohol Use: Denies Use Recreational Drug Use: Yes Drug of Choice: METH, MARIJUANA, morphine, oxycontin, xanax Smoking Status: Current Everyday Smoker Type Used: Cigarettes 2nd Hand Smoke Exposure: Yes Recent Foreign Travel: No Contact w/Someone Who Travel: No Recent Infectious Disease Expo: No Recent Hopitalizations: Yes (ICU-overdose 01/2018) Physical Abuse: No Sexual Abuse: No Immunizations Up To Date Tetanus Booster (TDap): Less than 5yrs PED Vaccines UTD: Yes Seasonal Allergies Seasonal Allergies: Yes Past Medical History Surgeries: Yes (DENTAL, RT HAND) Appendectomy, Orthopedic Respiratory: Yes Asthma Currently Using CPAP: No Currently Using BIPAP: No Cardiac: No Neurological: Yes (Multiple head injuries from Football injuries) Gastrointestinal: Yes Gastroesophageal Reflux Musculoskeletal: Yes (chronic back and neck pain) Chronic Back Pain Endocrine: No Cancer: No Psychosocial: Yes (bipolar 2, ADHD, impulse control disorder) ADD/ADHD, Anxiety, Suicide Attempts, Bipolar, Depression Integumentary: No Blood Disorders: No Adverse Reaction/Blood Tranf: No Family Medical History Reviewed Nursing Family Hx Prostate cancer Grandfather Thyroid disease 19 MOTHER Physical Exam Vital Signs Vital Signs - First Documented 02/06/18 18:15 Temp 99.4 Pulse 86 Resp 15 B/P (MAP) 140/83 (102) Pulse Ox 97 O2 Delivery Room Air Capillary Refill : Less Than 3 Seconds Height, Weight, BMI Height: 6'1.00" Weight: 278lbs. 0.0oz. [id number]; 35.8 BMI Method:Stated General Appearance: No Apparent Distress, WD/WN Eyes: Bilateral Eye Normal Inspection, Bilateral Eye PERRL, Bilateral Eye EOMI HEENT: PERRL/EOMI, TMs Normal, Normal ENT Inspection, Pharynx Normal Neck: Full Range of Motion, Normal Inspection, Non Tender, Supple Respiratory: Chest Non Tender, Lungs Clear, Normal Breath Sounds, No Accessory Muscle Use, No Respiratory Distress Cardiovascular: Regular Rate, Rhythm, No Edema, No Gallop, No JVD, No Murmur, Normal Peripheral Pulses Gastrointestinal: Normal Bowel Sounds, No Organomegaly, No Pulsatile Mass, Soft , Tenderness (left upper quadrant tenderness.) Neurologic/Psychiatric: Alert, Oriented x3, Normal Mood/Affect Skin: Normal Color, Warm/Dry Progress/Results/Core Measures Suspected Sepsis Recent Fever Within 48 Hours: No Infection Criteria Present: None New/Unexplained Altered Menta: No Sepsis Screen: No Definite Risk SIRS Temperature:99.4 Pulse: 86 Respiratory Rate: 15 Laboratory Tests 02/06/18 18:27: White Blood Count 11.9H Blood Pressure 140 /83 Mean: 102 Laboratory Tests 02/06/18 18:27: Creatinine 0.78, Platelet Count 261, Total Bilirubin 0.4 Results/Orders Lab Results Laboratory Tests Test 02/06/18 18:27 02/06/18 18:34 Range/Units White Blood Count 11.9 H 4.3-11.0 10^3/uL Red Blood Count 5.16 4.35-5.85 10^6/uL Hemoglobin 14.0 13.3-17.7 G/DL Hematocrit 41 40-54 % Mean Corpuscular Volume 79 L 80-99 FL Mean Corpuscular Hemoglobin 27 25-34 PG Mean Corpuscular Hemoglobin Concent 35 32-36 G/DL Red Cell Distribution Width 13.4 10.0-14.5 % Platelet Count 261 130-400 10^3/uL Mean Platelet Volume 10.2 7.4-10.4 FL Neutrophils (%) (Auto) 76 H 42-75 % Lymphocytes (%) (Auto) 16 12-44 % Monocytes (%) (Auto) 6 0-12 % Eosinophils (%) (Auto) 2 0-10 % Basophils (%) (Auto) 0 0-10 % Neutrophils # (Auto) 9.0 H 1.8-7.8 X 10^3 Lymphocytes # (Auto) 1.9 1.0-4.0 X 10^3 Monocytes # (Auto) 0.8 0.0-1.0 X 10^3 Eosinophils # (Auto) 0.2 0.0-0.3 10^3/uL Basophils # (Auto) 0.0 0.0-0.1 10^3/uL Sodium Level 139 135-145 MMOL/L Potassium Level 3.3 L 3.6-5.0 MMOL/L Chloride Level 107 98-107 MMOL/L Carbon Dioxide Level 23 21-32 MMOL/L Anion Gap 9 5-14 MMOL/L Blood Urea Nitrogen 7 7-18 MG/DL Creatinine 0.78 0.60-1.30 MG/DL Estimat Glomerular Filtration Rate > 60 BUN/Creatinine Ratio 9 Glucose Level 118 H 70-105 MG/DL Calcium Level 9.0 8.5-10.1 MG/DL Corrected Calcium 8.9 8.5-10.1 MG/DL Total Bilirubin 0.4 0.1-1.0 MG/DL Aspartate Amino Transf (AST/SGOT) 17 5-34 U/L Alanine Aminotransferase (ALT/SGPT) 27 0-55 U/L Alkaline Phosphatase 62 40-136 U/L Troponin I < 0.30 <0.30 NG/ML Total Protein 6.9 6.4-8.2 GM/DL Albumin 4.1 3.2-4.5 GM/DL Amylase Level 25 25-125 U/L Lipase 36 8-78 U/L Urine Color YELLOW Urine Clarity CLEAR Urine pH 8 5-9 Urine Specific [place] 1.010 L 1.016-1.022 Urine Protein NEGATIVE NEGATIVE Urine Glucose (UA) NEGATIVE NEGATIVE Urine Ketones NEGATIVE NEGATIVE Urine Nitrite NEGATIVE NEGATIVE Urine Bilirubin NEGATIVE NEGATIVE Urine Urobilinogen NORMAL NORMAL MG/DL Urine Leukocyte Esterase NEGATIVE NEGATIVE Urine RBC (Auto) NEGATIVE NEGATIVE Urine RBC NONE /HPF Urine WBC NONE /HPF Urine Squamous Epithelial Cells 0-2 /HPF Urine Crystals NONE /LPF Urine Bacteria NEGATIVE /HPF Urine Casts NONE /LPF Urine Mucus NEGATIVE /LPF Urine Culture Indicated NO My Orders Orders - DAWSON HERNANDEZ Comprehensive Metabolic Panel (02/06/18 18:25) Lipase (02/06/18 18:25) Amylase (02/06/18 18:25) Ua Culture If Indicated (02/06/18 18:) Saline Lock/Iv-Start (02/06/18 18:25) Cbc With Automated Diff (02/06/18 18:25) Troponin I (02/06/18 18:25) Chest 1 View, Ap/Pa Only (02/06/18 18:25) Ondansetron Injection (Zofran Injectio (02/06/18 18:30) Fentanyl Injection (Sublimaze Injection (02/06/18 18:30) Ekg Tracing (02/06/18 18:29) Medications Given in ED Current Medications Medications Dose Ordered Sig/Josh Route Start Time Stop Time Status Last Admin Dose Admin Fentanyl Citrate 25 mcg ONCE ONCE IVP 02/06/18 18:30 02/06/18 18:31 DC 02/06/18 18:46 25 MCG Ondansetron HCl 4 mg ONCE ONCE IVP 02/06/18 18:30 02/06/18 18:31 DC 02/06/18 18:47 4 MG Vital Signs/I&O 02/06/18 02/06/18 18:15 20:09 Temp 99.4 98.6 Pulse 86 97 Resp 15 17 B/P (MAP) 140/83 (102) 124/86 (99) Pulse Ox 97 97 O2 Delivery Room Air Room Air Capillary Refill : Less Than 3 Seconds Blood Pressure Mean: 102 Progress Note : Time: 20:00 Progress Note I have seen and evaluated the patient. I have informed him of normal imaging studies. I believe that he has GI upset do to the large quantity of ASA that he consumed on his overdose. He is feeling much better after medication administration. He agrees with plan of care, close follow up, return precautions were given. Departure Impression Primary Impression: Abdominal pain Disposition: HOME, SELF-CARE Condition: Stable/Unchanged Departure-Patient Inst. Decision time for Depature: 20:01 Referrals: [facility] [place] Primary Care Physician Patient Instructions: Acute Abdomen (Belly Pain), Adult (DC) Add. Discharge Instructions: Continue your home medications as previously prescribed. Drink plenty of clear liquids like water. Eat a bland diet, nothing spicy, nothing high in fat. Keep your appointment as scheduled with Dr. Epps on the . Return back to the emergency room for any worsening symptoms or concerns as needed. All discharge instructions reviewed with patient and/or family. Voiced understanding. DAWSON HERNANDEZ Feb 06, 2018 18:59
[2018-02-06 20:09] VITALS: BP 124/86
== END 2018-02-06 20:09 | disposition home or self-care (01) ==
LOC: EDUNIT# 18:08 → ER 18:10
DX: R10.12 Left upper quadrant pain (principal); R53.83 Other fatigue; J45.909 Unspecified asthma, uncomplicated; K21.9 Gastro-esophageal reflux disease without esophagitis; F90.9 Attention-deficit hyperactivity disorder, unspecified type; F41.9 Anxiety disorder, unspecified; F31.9 Bipolar disorder, unspecified; F15.10 Other stimulant abuse, uncomplicated; F12.10 Cannabis abuse, uncomplicated; F17.210 Nicotine dependence, cigarettes, uncomplicated; Z90.89 Acquired absence of other organs; Z91.5 Personal history of self-harm; Z80.42 Family history of malignant neoplasm of prostate
CPT/HCPCS: 36415; 71045; 80053; 81000; 82150; 83690; 84484; 85025; 93005

== ENCOUNTER 2020-02-28 23:34 | Emergency (ER) | payer OTHER ==
[~2020-02-28] VITALS: Ht 186 cm; Wt 126.0 kg
[~2020-02-28 23:34] MED LIST changes: +METR-145 PO; -METR500T21 PO; -TRAM50TA2 PO; +TRM50T PO
--- NOTE | 2020-02-28 23:56 | ED General ---
General Chief Complaint: Psych/Social Disorder Stated Complaint: MEDICAL CLEARANCE History of Present Illness Date Seen by Provider: Feb 28, 2020 Time Seen by Provider: 23:54 Initial Comments 29-year-old male sent out by mental health for a medical clearance. Patient a patient is supposedly in a be admitted for a psychosis. Patient has no complaints and does not seem to be having a psychotic episode at this time. Patient does admit to meth use last night. (KAHLIL KEBEDE DO) Allergies and Home Medications Allergies Coded Allergies: No Known Drug Allergies (Unverified , 01/12/09) Home Medications Albuterol Sulfate 18 Gm Hfa.aer.ad, 18 GM IH Q4H PRN for WHEEZING Prescribed by: JACQUELYN HILLS on 02/03/18 1155 Paliperidone Palmitate 156 Mg/1 Ml Syringe, 156 MG IM MONTHLY, (Reported) Patient Home Medication List Home Medication List Reviewed: Yes (KAHLIL KEBEDE DO) Review of Systems Review of Systems Constitutional: no symptoms reported EENTM: no symptoms reported Respiratory: no symptoms reported Cardiovascular: no symptoms reported Gastrointestinal: no symptoms reported Genitourinary: no symptoms reported Musculoskeletal: no symptoms reported Skin: no symptoms reported Psychiatric/Neurological: See HPI Hematologic/Lymphatic: No Symptoms Reported (KAHLIL KEBEDE DO) Past Ypmypds-Ooybop-Cintre Hx Past Med/Social Hx: Reviewed Nursing Past Med/Soc Hx (KAHLIL KEBEDE DO) Patient Social History Drug of Choice: METH, MARIJUANA, morphine, oxycontin, xanax Type Used: Cigarettes 2nd Hand Smoke Exposure: Yes Recent Foreign Travel: No Contact w/Someone Who Travel: No Recent Hopitalizations: Yes (ICU-overdose 01/2018) (KAHLIL KEBEDE DO) Immunizations Up To Date Tetanus Booster (TDap): Less than 5yrs PED Vaccines UTD: Yes (KAHLIL KEBEDE DO) Seasonal Allergies Seasonal Allergies: Yes (KAHLIL KEBEDE DO) Past Medical History Surgeries: Yes (DENTAL, RT HAND) Appendectomy, Orthopedic Respiratory: Yes Asthma Currently Using CPAP: No Currently Using BIPAP: No Cardiac: No Neurological: Yes (Multiple head injuries from Football injuries) Gastrointestinal: Yes Gastroesophageal Reflux Musculoskeletal: Yes (chronic back and neck pain) Chronic Back Pain Endocrine: No Cancer: No Psychosocial: Yes (bipolar 2, ADHD, impulse control disorder) ADD/ADHD, Anxiety, Suicide Attempts, Bipolar, Depression Integumentary: No Blood Disorders: No Adverse Reaction/Blood Tranf: No (KEBEDERIZWANAKAHLIL L DO) Family Medical History Prostate cancer Grandfather Thyroid disease 19 MOTHER Physical Exam Vital Signs Vital Signs - First Documented 02/28/20 23:40 Temp 36.5 Pulse 88 Resp 18 B/P (MAP) 125/99 (108) Pulse Ox 100 O2 Delivery Room Air (LAURA HDEZ MD) Vital Signs Capillary Refill : (KEBEDESIMÓNR L DO) Height, Weight, BMI Height: 6'1.00" Weight: 278lbs. 0.0oz. 126.503097lu; 35.8 BMI Method:Stated General Appearance: No Apparent Distress, WD/WN Neck: Non Tender, Supple Respiratory: Lungs Clear, Normal Breath Sounds, No Accessory Muscle Use Cardiovascular: Regular Rate, Rhythm, No Edema Gastrointestinal: Non Tender, Soft Extremity: Normal Capillary Refill Neurologic/Psychiatric: Alert, No Motor/Sensory Deficits, production illustrator II-XII Norm as Tested Skin: Normal Color, Warm/Dry (KEBEDESIMÓNR L DO) Progress/Results/Core Measures Suspected Sepsis SIRS Temperature: Pulse: Respiratory Rate: Laboratory Tests 02/28/20 23:58: White Blood Count 9.1 Blood Pressure / Mean: Laboratory Tests 02/28/20 23:58: Creatinine 0.97, Platelet Count 304, Total Bilirubin 0.5 (KEBEDESIMÓNR L DO) Results/Orders Lab Results Laboratory Tests Test 02/28/20 23:58 Range/Units White Blood Count 9.1 4.3-11.0 10^3/uL Red Blood Count 5.54 H 4.30-5.52 10^6/uL Hemoglobin 14.5 13.3-17.7 g/dL Hematocrit 44 40-54 % Mean Corpuscular Volume 80 80-99 fL Mean Corpuscular Hemoglobin 26 25-34 pg Mean Corpuscular Hemoglobin Concent 33 32-36 g/dL Red Cell Distribution Width 12.6 10.0-14.5 % Platelet Count 304 130-400 10^3/uL Mean Platelet Volume 9.9 9.0-12.2 fL Immature Granulocyte % (Auto) 0 % Neutrophils (%) (Auto) 60 42-75 % Lymphocytes (%) (Auto) 29 12-44 % Monocytes (%) (Auto) 9 0-12 % Eosinophils (%) (Auto) 2 0-10 % Basophils (%) (Auto) 0 0-10 % Neutrophils # (Auto) 5.4 1.8-7.8 10^3/uL Lymphocytes # (Auto) 2.6 1.0-4.0 10^3/uL Monocytes # (Auto) 0.8 0.0-1.0 10^3/uL Eosinophils # (Auto) 0.2 0.0-0.3 10^3/uL Basophils # (Auto) 0.0 0.0-0.1 10^3/uL Immature Granulocyte # (Auto) 0.0 0.0-0.1 10^3/uL Urine Color YELLOW Urine Clarity CLEAR Urine pH 6.0 5-9 Urine Specific [place] 1.025 H 1.016-1.022 Urine Protein NEGATIVE NEGATIVE Urine Glucose (UA) NEGATIVE NEGATIVE Urine Ketones NEGATIVE NEGATIVE Urine Nitrite NEGATIVE NEGATIVE Urine Bilirubin NEGATIVE NEGATIVE Urine Urobilinogen 0.2 < = 1.0 MG/DL Urine Leukocyte Esterase NEGATIVE NEGATIVE Urine RBC (Auto) NEGATIVE NEGATIVE Urine RBC NONE /HPF Urine WBC 0-2 /HPF Urine Crystals PRESENT H /LPF Urine Amorphous Sediment FEW KEVAN URATES H /LPF Urine Bacteria TRACE /HPF Urine Casts NONE /LPF Urine Mucus MODERATE H /LPF Urine Culture Indicated NO Sodium Level 138 135-145 MMOL/L Potassium Level 3.9 3.6-5.0 MMOL/L Chloride Level 105 98-107 MMOL/L Carbon Dioxide Level 22 21-32 MMOL/L Anion Gap 11 5-14 MMOL/L Blood Urea Nitrogen 9 7-18 MG/DL Creatinine 0.97 0.60-1.30 MG/DL Estimat Glomerular Filtration Rate > 60 BUN/Creatinine Ratio 9 Glucose Level 90 70-105 MG/DL Calcium Level 9.6 8.5-10.1 MG/DL Corrected Calcium 9.4 8.5-10.1 MG/DL Total Bilirubin 0.5 0.1-1.0 MG/DL Aspartate Amino Transf (AST/SGOT) 30 5-34 U/L Alanine Aminotransferase (ALT/SGPT) 30 0-55 U/L Alkaline Phosphatase 70 40-136 U/L Total Protein 7.6 6.4-8.2 GM/DL Albumin 4.2 3.2-4.5 GM/DL Salicylates Level < 5.0 L 5.0-20.0 MG/DL Urine Opiates Screen NEGATIVE NEGATIVE Urine Oxycodone Screen NEGATIVE NEGATIVE Urine Methadone Screen NEGATIVE NEGATIVE Urine Propoxyphene Screen NEGATIVE NEGATIVE Acetaminophen Level < 10 L 10-30 UG/ML Urine Barbiturates Screen NEGATIVE NEGATIVE Ur Tricyclic Antidepressants Screen NEGATIVE NEGATIVE Urine Phencyclidine Screen NEGATIVE NEGATIVE Urine Amphetamines Screen POSITIVE H NEGATIVE Urine Methamphetamines Screen POSITIVE H NEGATIVE Urine Benzodiazepines Screen NEGATIVE NEGATIVE Urine Cocaine Screen NEGATIVE NEGATIVE Urine Cannabinoids Screen POSITIVE H NEGATIVE Serum Alcohol < 10 <10 MG/DL Coronavirus 2019 (JOSEFINA) Negative Negative (LAURA HDEZ MD) My Orders Orders - LAURA HDEZ MD Covid 19 Inhouse Test (02/29/20 09:16) (LAURA HDEZ MD) Vital Signs/I&O 02/29/20 12:54 Temp 36.6 Pulse 83 B/P (MAP) 106/68 Pulse Ox 98 O2 Delivery Room Air (LAURA HDEZ MD) Vital Signs/I&O Capillary Refill : (KAHLIL KEBEDE DO) Progress Note : Progress Note Patient is medically cleared for inpatient psych. Behavioral health requests that we keep patient here until they are able to find placement for him. Patient is cooperative throughout his stay. (KAHLIL KEBEDE DO) Progress Note : Time: 08:24 Progress Note 29-year-old male presents to the emergency department today as a medical clearance for inpatient psych. Behavioral health recommended the patient have hospitalization. According to the patient he states that he had told behavioral health that he "thought about killing myself". Patient states he currently does not have those thoughts. Denies any thoughts of harming others. Denies any auditory or visual hallucinations. Patient's been resting comfortably throughout the evening. Patient has no complaints currently. Awaiting behavioral health disposition. 09 Patient relayed to Behavioral Health that he is in fact, having suicidal thoughts. Will attempt to find placement for him. (LAURA HDEZ MD) Departure Impression Primary Impression: Medical clearance for psychiatric admission Disposition: 65 XFER TO PSYCH HOSP/UNIT Condition: Stable Transfer Transfer Reason: Exceeds level of care Transfer Progress Notes Patient was accepted to [facility] in [facility] Dr. Nice is the accepting physician Method of Transfer: hospital t (LAURA HDEZ MD) Departure-Patient Inst. Referrals: [facility] [place] Primary Care Physician KAHLIL KEBEDE DO Feb 28, 2020 23:56 LAURA HDEZ MD Feb 29, 2020 08:25
[2020-02-29 00:07] LABS: BILIRUBIN,URINE NEGATIVE (NEGATIVE); CLARITY,URINE CLEAR; COLOR,URINE YELLOW; GLUCOSE, URINE (UA) NEGATIVE (NEGATIVE); KETONES,URINE NEGATIVE (NEGATIVE); LEUKOCYTE ESTERASE ,URINE NEGATIVE (NEGATIVE); NITRITE,URINE NEGATIVE (NEGATIVE); PROTEIN,URINE NEGATIVE (NEGATIVE)
[2020-02-29 00:15] LABS: CHLORIDE 105 MMOL/L (98-107); POTASSIUM 3.9 MMOL/L (3.6-5.0); SODIUM 138 MMOL/L (135-145)
[2020-02-29 00:16] LABS: ALBUMIN 4.2 GM/DL (3.2-4.5)
[2020-02-29 00:17] LABS: CALCIUM 9.6 MG/DL (8.5-10.1)
[2020-02-29 00:18] LABS: GLUCOSE 90 MG/DL (70-105); TOTAL PROTEIN 7.6 GM/DL (6.4-8.2)
[2020-02-29 00:19] LABS: CARBON DIOXIDE 22 MMOL/L (21-32)
[2020-02-29 00:20] LABS: BILIRUBIN,TOTAL 0.5 MG/DL (0.1-1.0)
[2020-02-29 00:22] LABS: ALKALINE PHOSPHATASE 70 U/L (40-136); BASOPHILS % (AUTO) 0 % (0-10); CREATININE SERUM 0.97 MG/DL (0.60-1.30); EOSINOPHILS # (AUTO) 0.2 10^3/uL (0.0-0.3); EOSINOPHILS % (AUTO) 2 % (0-10); GFR ESTIMATED > 60; HEMATOCRIT 44 % (40-54); HEMOGLOBIN 14.5 g/dL (13.3-17.7); LYMPHOCYTES # (AUTO) 2.6 10^3/uL (1.0-4.0); LYMPHOCYTES % (AUTO) 29 % (12-44); MEAN CORPUSCULAR HEMOGLOBIN 26 pg (25-34); MEAN CORPUSCULAR HGB CONC 33 g/dL (32-36); MEAN CORPUSCULAR VOLUME 80 fL (80-99); MEAN PLATELET VOLUME 9.9 fL (9.0-12.2); MONOCYTES # (AUTO) 0.8 10^3/uL (0.0-1.0); MONOCYTES % (AUTO) 9 % (0-12); NEUTROPHILS # (AUTO) 5.4 10^3/uL (1.8-7.8); NEUTROPHILS % (AUTO) 60 % (42-75); PLATELET COUNT 304 10^3/uL (130-400); WHITE BLOOD COUNT 9.1 10^3/uL (4.3-11.0)
[2020-02-29 00:23] LABS: BUN/CREATININE RATIO 9
[2020-02-29 00:25] LABS: ACETAMINOPHEN < 10 UG/ML (10-30); ALANINE AMINOTRANSFERASE 30 U/L (0-55); SALICYLATE < 5.0 MG/DL (5.0-20.0)
[2020-02-29 00:44] LABS: BENZODIAZEPINES SCREEN URINE NEGATIVE (NEGATIVE); COCAINE SCREEN URINE NEGATIVE (NEGATIVE)
[2020-02-29 00:45] LABS: AMPHETAMINE SCREEN, URINE POSITIVE (NEGATIVE); BARBITURATE SCREEN URINE NEGATIVE (NEGATIVE); CANNABINOID SCREEN, URINE POSITIVE (NEGATIVE); METHADONE STAT NEGATIVE (NEGATIVE); METHAMPHETAMINE SCREEN URINE S POSITIVE (NEGATIVE); OPIATE SCREEN URINE NEGATIVE (NEGATIVE); OXYCODONE STAT NEGATIVE (NEGATIVE); PROPOXYPHENE STAT NEGATIVE (NEGATIVE); TRICYCLIC ANTIDEPRESSANTS SCRE NEGATIVE (NEGATIVE)
[2020-02-29 00:50] LABS: AMORPHOUS SEDIMENT,UR FEW AMOR URATES /LPF; BACTERIA,URINE TRACE /HPF; WBC,URINE 0-2 /HPF
--- NOTE | 2020-02-29 00:54 | NUR ---
save line screener informed of medical clearance.
--- NOTE | 2020-02-29 01:51 | NUR ---
chart faxed to [phone] per save line request.
--- NOTE | 2020-02-29 06:27 | NUR ---
attempted to contact save line no answer [id number]
--- NOTE | 2020-02-29 07:00 | NUR ---
REPORT GIVEN TO CYNTHIA PITTMAN AT THIS TIME.
--- NOTE | 2020-02-29 07:16 | NUR ---
DIETARY NOTIFIED OF DIET BEING ORDERED.
--- NOTE | 2020-02-29 07:32 | NUR ---
BREAKFAST GIVEN TO PT.
--- NOTE | 2020-02-29 07:36 | NUR ---
PT SLEEPING AT THIS TIME.
--- NOTE | 2020-02-29 08:24 | NUR ---
PT AWAKE. PT STATES HE WAS THINKING ABOUT KILLING HIMSELF BUT NO LONGER HAS THOSE FEELINGS. EATING BREAKFAST. ATTEMPT TO CALL SAVE LINE WITH NO ANSWER.
--- NOTE | 2020-02-29 09:00 | NUR ---
KYLE LOYA WITH MENTAL HEALTH CALLED AND TALKED TO THE PT WHO IS TELLING KYLE HE IS NOW SUICIDAL. PT'S PUT INTO A GOWN AND BELONGING LOCKED BEHIND DOOR. NOTIFIED.
--- NOTE | 2020-02-29 09:47 | NUR ---
MULTIPLE PSYCH FACILITIES CONTACTED. [facility] IN [place] HAS A BED AND INFORMATION FAXED. [facility] CONTACTED AND SAID HE WOULD BE AVAILABLE FOR TRANSPORT IN THE AFTERNOON IF PT IS ACCEPTED. NEMO AT 0903 - FULL VALERIE AT 0904 - FULL LANCE AT 0908 FULL ET STATES THEY MAY HAVE X2 DC AND INFO WAS FAXED TO THEM. LUISANA AT 0914 - MESSAGE LEFT ELVIA AT 0918 - PAGED, INFO FAXED AT 0936 [place] - NO ANSWER RESEARCH - 921 INFO FAXED [facility] - 09 FULL
--- NOTE | 2020-02-29 10:19 | NUR ---
[facility] CONTACTED BECAUSE PSYCH FACILITIES ARE ASKING FOR [employer] DOCUMENTATION ET THEY STATE THEY WILL PASS THE INFO ONTO [employer].
--- NOTE | 2020-02-29 10:28 | NUR ---
PT RESTING IN BED ET DENIES NEEDS AT THIS TIME. STATES HE DOES CONTINUE WISH TO RECIEVE HELP AT A FACILITY AND IS WILLING TO GO TO [place] TO RECIEVE THIS HELP. PLANS ARE FOR [facility] TO TRANSPORT THIS PT LATER THIS AFTERNOON. VSS AT THIS TIME.
--- NOTE | 2020-02-29 10:30 | NUR ---
[facility] ET UPDATED NOTE FAXED TO [facility].
--- NOTE | 2020-02-29 10:51 | NUR ---
[facility] CALLED ET WANTED A UPDATE. THEY ARE TO FAX US THEIR INFO SO IT CAN BE FAXED TO [facility].
--- NOTE | 2020-02-29 11:31 | NUR ---
RESTING IN BED ET DENIES NEEDS AT THIS TIME.
--- NOTE | 2020-02-29 11:42 | NUR ---
LUNCH TAKEN TO THE PT.
--- NOTE | 2020-02-29 12:15 | NUR ---
CALLED [facility] TO CHECK ON THE STATIS. THEY ARE TO CALL ME BACK.
--- NOTE | 2020-02-29 12:34 | NUR ---
[facility] CALLED BACK ET STATES THEY DECLINED.
--- NOTE | 2020-02-29 12:57 | NUR ---
RESTING IN BED WITH EYE CLOSED.
--- NOTE | 2020-02-29 13:29 | NUR ---
MILDRED BARKER CONTACTED ET THEY WILL CONTACT US IF THEY HAVE A BED AVAILABLE.
--- NOTE | 2020-02-29 13:45 | NUR ---
UP TO THE BATHROOM.
--- NOTE | 2020-02-29 13:55 | NUR ---
ELIZABET BARKER CALLED BACK ET IS TALKING TO PT BY PHONE AT THIS TIME.
--- NOTE | 2020-02-29 14:42 | NUR ---
REPORT CALLED TO MILDRED BARKER. RUTH STATES HE WILL BE HERE AT 1500.
[2020-02-29 15:04] VITALS: BP 117/70
== END 2020-02-29 15:03 ==
LOC: EDUNIT# 23:34 → ER 23:39
DX: Z04.6 Encounter for general psychiatric examination, requested by authority (principal); J45.909 Unspecified asthma, uncomplicated; F31.9 Bipolar disorder, unspecified; Z77.22 Contact with and (suspected) exposure to environmental tobacco smoke (acute) (chronic); Z80.42 Family history of malignant neoplasm of prostate; Z20.828 Contact with and (suspected) exposure to other viral communicable diseases
CPT/HCPCS: 80053; 80306; 81000; 85025; 93005; 99283; G0480 ×3; U0002; 36415; 80320; 80329; 87635

== ENCOUNTER 2020-10-19 15:12 | Inpatient (IN) | payer SELFPAY ==
[~2020-10-19] VITALS: Ht 185.4 cm; Wt 116.6 kg
[~2020-10-19 15:12] MED LIST changes: -CIPR500T4 PO; +CIPR500T5 PO
[2020-10-19] MEDS ORDERED: NS IV 1000 ML 1,000 ML IV STA (15:23)
[2020-10-19 15:29] LABS: BASOPHILS # (AUTO) 0.1 10^3/uL (0.0-0.1); BASOPHILS % (AUTO) 1 % (0-10); EOSINOPHILS # (AUTO) 0.1 10^3/uL (0.0-0.3); EOSINOPHILS % (AUTO) 1 % (0-10); HEMATOCRIT 42 % (40-54); LYMPHOCYTES # (AUTO) 2.7 10^3/uL (1.0-4.0); LYMPHOCYTES % (AUTO) 37 % (12-44); MEAN CORPUSCULAR HEMOGLOBIN 27 pg (25-34); MEAN CORPUSCULAR HGB CONC 34 g/dL (32-36); MEAN CORPUSCULAR VOLUME 80 fL (80-99); MEAN PLATELET VOLUME 9.6 fL (9.0-12.2); MONOCYTES # (AUTO) 0.7 10^3/uL (0.0-1.0); MONOCYTES % (AUTO) 10 % (0-12); NEUTROPHILS # (AUTO) 3.8 10^3/uL (1.8-7.8); NEUTROPHILS % (AUTO) 51 % (42-75); PLATELET COUNT 240 10^3/uL (130-400); WHITE BLOOD COUNT 7.3 10^3/uL (4.3-11.0)
[2020-10-19 15:37] LABS: ALBUMIN 4.2 GM/DL (3.2-4.5); CHLORIDE 103 MMOL/L (98-107); POTASSIUM 3.3 MMOL/L (3.6-5.0); SODIUM 139 MMOL/L (135-145)
[2020-10-19 15:38] LABS: CALCIUM 9.1 MG/DL (8.5-10.1)
[2020-10-19 15:40] LABS: GLUCOSE 117 MG/DL (70-105); PROTHROMBIN TIME PATIENT 13.2 SEC (12.2-14.7); TOTAL PROTEIN 7.2 GM/DL (6.4-8.2)
[2020-10-19 15:41] LABS: BILIRUBIN,TOTAL 0.4 MG/DL (0.1-1.0); CARBON DIOXIDE 21 MMOL/L (21-32)
[2020-10-19 15:43] LABS: ALKALINE PHOSPHATASE 59 U/L (40-136); CREATININE SERUM 0.88 MG/DL (0.60-1.30); GFR ESTIMATED > 60
[2020-10-19 15:45] LABS: BUN/CREATININE RATIO 8
[2020-10-19 15:46] LABS: ALANINE AMINOTRANSFERASE 36 U/L (0-55); SALICYLATE < 5.0 MG/DL (5.0-20.0)
[2020-10-19 15:47] LABS: ACETAMINOPHEN 267 UG/ML (10-30)
--- NOTE | 2020-10-19 16:07 | ED Psychosocial ---
General Chief Complaint: Overdose Stated Complaint: AMS Nursing Triage Note: production control clerk came to nurse's station and reported pt put head down on desk and is not responding. This nurse and TOYA [place] went to waiting room. Pt extremely difficult to arouse. Pt then uncomprehensible. In room, pt reported doing meth today and taking 100 tylenol at approximately 0900. Pt reported vomiting twice. Pt admits this was an attempt to harm self. Source: patient Exam Limitations: no limitations History of Present Illness Date Seen by Provider: Oct 19, 2020 Time Seen by Provider: 15:20 Initial Comments Here with report of taking 100 Tylenol today at 9 AM and using methamphetamine. Denies other drugs but is quite drowsy. Patient did have to be assisted from front check-in desk to room. Answers a few questions and reports vomiting twice today. Does have history of overdose via aspirin. States he did want to harm himself. Denies other injury or concerns. Wants to kill himself due to "life circumstances". Timing/Duration: this morning Severity: severe Associated Symptoms: ingestion, suicidal ideation Allergies and Home Medications Allergies Coded Allergies: No Known Drug Allergies (Unverified , 01/12/09) Home Medications Albuterol Sulfate 18 Gm Hfa.aer.ad, 18 GM IH Q4H PRN for WHEEZING Prescribed by: JACQUELYN HILLS on 02/03/18 1155 Paliperidone Palmitate 156 Mg/1 Ml Syringe, 156 MG IM MONTHLY, (Reported) Patient Home Medication List Home Medication List Reviewed: Yes Review of Systems Constitutional: see HPI; No chills, No fever EENTM: no symptoms reported Respiratory: no symptoms reported Psychiatric/Neurological: Depressed, Emotional Problems Patient quite drowsy and not answering questions well. Review of systems limited due to underlying health issues and overdose. Past Debhygo-Dvnevd-Srcadp Hx Past Med/Social Hx: Reviewed Nursing Past Med/Soc Hx Patient Social History Alcohol Use: Denies Use Drug of Choice: METH, cannibus, morphine, oxycontin, xanax Smoking Status: Current Everyday Smoker Type Used: Cigarettes 2nd Hand Smoke Exposure: Yes Recent Infectious Disease Expo: No Recent Hopitalizations: No Immunizations Up To Date Tetanus Booster (TDap): Less than 5yrs PED Vaccines UTD: Yes Seasonal Allergies Seasonal Allergies: Yes Past Medical History Surgeries: Yes (DENTAL, RT HAND) Appendectomy, Orthopedic Respiratory: Yes Asthma Currently Using CPAP: No Currently Using BIPAP: No Cardiac: No Neurological: No Genitourinary: No Gastrointestinal: Yes Gastroesophageal Reflux Musculoskeletal: Yes (chronic back and neck pain) Chronic Back Pain Endocrine: No Cancer: No Psychosocial: Yes (bipolar 2, ADHD, impulse control disorder) ADD/ADHD, Anxiety, Suicide Attempts, Bipolar, Depression Integumentary: No Blood Disorders: No Adverse Reaction/Blood Tranf: No Family Medical History Reviewed Nursing Family Hx Prostate cancer Grandfather Thyroid disease 19 MOTHER Physical Exam Vital Signs - First Documented 10/19/20 15:12 Temp 36.4 Pulse 92 Resp 15 B/P (MAP) 129/94 (106) Pulse Ox 96 O2 Delivery Room Air Capillary Refill : Less Than 3 Seconds Height, Weight, BMI Height: 6'1.00" Weight: 278lbs. 0.0oz. 126.748699kj; 32.00 BMI Method:Stated General Appearance: WD/WN, no apparent distress HEENT: PERRL/EOMI, pharynx normal Neck: full range of motion, supple Respiratory: lungs clear, normal breath sounds Cardiovascular: regular rate, rhythm, no murmur Gastrointestinal: non tender, soft Extremities: non-tender, normal inspection Neurologic/Psychiatric: other (Depressed affect and slurred speech. Answers a few questions. Appears quite drowsy.) Appearance/Memory: disheveled Behavior/Eye Contact: decreased rate of speech Skin: normal color, warm/dry No obvious head injuries. No evidence of injuries to the extremities. Progress/Results/Core Measures Results/Orders Lab Results Laboratory Tests Test 10/19/20 15:20 10/19/20 16:24 Range/Units White Blood Count 7.3 4.3-11.0 10^3/uL Red Blood Count 5.16 4.30-5.52 10^6/uL Hemoglobin 14.0 13.3-17.7 g/dL Hematocrit 42 40-54 % Mean Corpuscular Volume 80 80-99 fL Mean Corpuscular Hemoglobin 27 25-34 pg Mean Corpuscular Hemoglobin Concent 34 32-36 g/dL Red Cell Distribution Width 11.9 10.0-14.5 % Platelet Count 240 130-400 10^3/uL Mean Platelet Volume 9.6 9.0-12.2 fL Immature Granulocyte % (Auto) 0 % Neutrophils (%) (Auto) 51 42-75 % Lymphocytes (%) (Auto) 37 12-44 % Monocytes (%) (Auto) 10 0-12 % Eosinophils (%) (Auto) 1 0-10 % Basophils (%) (Auto) 1 0-10 % Neutrophils # (Auto) 3.8 1.8-7.8 10^3/uL Lymphocytes # (Auto) 2.7 1.0-4.0 10^3/uL Monocytes # (Auto) 0.7 0.0-1.0 10^3/uL Eosinophils # (Auto) 0.1 0.0-0.3 10^3/uL Basophils # (Auto) 0.1 0.0-0.1 10^3/uL Immature Granulocyte # (Auto) 0.0 0.0-0.1 10^3/uL Prothrombin Time 13.2 12.2-14.7 SEC INR Comment 1.0 0.8-1.4 Activated Partial Thromboplast Time 28 24-35 SEC Sodium Level 139 135-145 MMOL/L Potassium Level 3.3 L 3.6-5.0 MMOL/L Chloride Level 103 98-107 MMOL/L Carbon Dioxide Level 21 21-32 MMOL/L Anion Gap 15 H 5-14 MMOL/L Blood Urea Nitrogen 7 7-18 MG/DL Creatinine 0.88 0.60-1.30 MG/DL Estimat Glomerular Filtration Rate > 60 BUN/Creatinine Ratio 8 Glucose Level 117 H 70-105 MG/DL Calcium Level 9.1 8.5-10.1 MG/DL Corrected Calcium 8.9 8.5-10.1 MG/DL Total Bilirubin 0.4 0.1-1.0 MG/DL Aspartate Amino Transf (AST/SGOT) 23 5-34 U/L Alanine Aminotransferase (ALT/SGPT) 36 0-55 U/L Alkaline Phosphatase 59 40-136 U/L Total Protein 7.2 6.4-8.2 GM/DL Albumin 4.2 3.2-4.5 GM/DL Salicylates Level < 5.0 L 5.0-20.0 MG/DL Acetaminophen Level 267 *H 10-30 UG/ML Serum Alcohol < 10 <10 MG/DL Blood Gas Puncture Site LT RAD Blood Gas Patient Temperature 98.7 Arterial Blood pH 7.42 7.37-7.43 Arterial Blood Partial Pressure CO2 40 35-45 MMHG Arterial Blood Partial Pressure O2 112 H 79-93 MMHG Arterial Blood HCO3 25 23-27 MMOL/L Arterial Blood Total CO2 26.5 21.0-31.0 MMOL/L Arterial Blood Oxygen Saturation 98 94-100 % Arterial Blood Base Excess 1.3 -2.5-2.5 MMOL/L Wisam Test YES-POS Blood Gas Ventilator Setting NO Blood Gas Inspired Oxygen ROOM AIR My Orders Orders - ARIELLE CARNEY MD Iv 1000 Ml (Sodium Chloride 0.9%) (10/19/20 15:23) Ed Iv/Invasive Line Start (10/19/20 15:23) Protime With Inr (10/19/20 15:24) Partial Thromboplastin Time (10/19/20 15:24) Acetylcysteine Injection (Acetadote Inje (10/19/20 16:15) Acetylcysteine Injection (Acetadote Inje (10/19/20 17:15) Acetylcysteine Injection (Acetadote Inje (10/19/20 21:15) Arterial Blood Gas (10/19/20 16:07) Naloxone Injection (Narcan Injection) (10/19/20 16:15) Medications Given in ED Current Medications Medications Dose Ordered Sig/Josh Route Start Time Stop Time Status Last Admin Dose Admin Naloxone HCl 0.4 mg ONCE ONCE IV 10/19/20 16:15 10/19/20 16:17 DC 10/19/20 16:20 0.4 MG Vital Signs/I&O 10/19/20 15:12 Temp 36.4 Pulse 92 Resp 15 B/P (MAP) 129/94 (106) Pulse Ox 96 O2 Delivery Room Air Blood Pressure Mean: 106 Progress Progress Note : Progress Note Seen and evaluated. Psych evaluation protocol initiated including drug screens. Patient does have history of aspirin overdose. Monitor patient. 1603: Brian tadote protocol initiated due to markedly elevated acetaminophen level. Poison control has been contacted and agrees. 1608: Poison control would really like us to give Narcan given patient's drowsiness and this would not be related to acetaminophen overdose. Patient denied other medications or narcotics but we will give 0.4 mg IV. Patient's only mention of other drugs was with methamphetamine. We are pending UA for drug screen. Patient is not hypoxic and respiration rate remains between 12 and 20. 1659: Narcan did not change status. Patient is still not hypoxic and his respiratory is in normal range. ABG does not show acidosis or hypercarbia. I did discuss the case with Dr. Toscano and she accepts patient for admission, inpatient status. We will continue Acetadote protocol. Initial ECG Impression Date: Oct 19, 2020 Initial ECG Impression Time: 15:18 Initial ECG Rate: 85 Comment Sinus rhythm with normal axis. No evidence of ST elevation PA. QT interval 375. Similar to but more appropriate rate today than previous of 02/01/2018 in which she had aspirin overdose at that time. Interpreted by me. Departure Communication (Admissions) Time/Spoke to Admitting Phy: 16:59 Impression Primary Impression: Acetaminophen overdose Qualified Codes: T39.1X2A - Poisoning by 4-aminophenol derivatives, intentional self-harm, initial encounter Additional Impressions: Methamphetamine abuse Suicide attempt by acetaminophen overdose Qualified Codes: T39.1X2A - Poisoning by 4-aminophenol derivatives, intentional self-harm, initial encounter Disposition: ADMITTED INPATIENT Condition: Stable Admissions Decision to Admit Reason: Admit from ER (General) Decision to Admit/Date: Oct 19, 2020 Time/Decision to Admit Time: 16:59 Departure-Patient Inst. Referrals: [facility] (PCP/Family) Primary Care Physician Patient Instructions: ALCOHOL AND SUBSTANCE ABUSE ARIELLE CARNEY MD Oct 19, 2020 16:07
[2020-10-19] MEDS ORDERED: D5W IV ONE ×3 (16:15→21:15)
[2020-10-19] MEDS ORDERED: ACETYLCYSTEINE IV ONE ×3 (16:15→21:15)
[2020-10-19] MEDS ORDERED: NALOXONE 0.4 MG/ML 1 ML (NARCAN) VIAL IV ONE (16:15)
[2020-10-19 16:34] LABS: ABG BASE EXCESS 1.3 MMOL/L (-2.5-2.5); ABG OXYGEN SATURATION 98 % (94-100); ABG PCO2 40 MMHG (35-45); ABG PH 7.42 (7.37-7.43); ABG PO2 112 MMHG (79-93); ABG TCO2 26.5 MMOL/L (21.0-31.0)
[2020-10-19 16:38] LABS: ALLENS TEST YES-POS; INSPIRED O2 ROOM AIR; PATIENT TEMP 98.7; VENTILATOR NO
[2020-10-19] MEDS ORDERED: ONDANSETRON 4 MG/2 ML (SDV) Z0FRAN IVP ONE (18:30)
[2020-10-19 18:53] VITALS: BP 153/94
[2020-10-19 19:00] VITALS: BP 145/89
[2020-10-19 20:00] VITALS: BP_SYST 130; BP_SYST 139; BP_DIAS 87; BP_DIAS 91
[2020-10-19] MEDS ORDERED: NALOXONE 0.4 MG/ML 1 ML (NARCAN) VIAL IV PRN (20:30)
[2020-10-19] MEDS ORDERED: ONDANSETRON 4 MG/2 ML (SDV) Z0FRAN IVP PRN (20:30)
[2020-10-19 21:00] VITALS: BP 137/99
[2020-10-19] MEDS: LACTATED RINGERS 1,000 ML IV SCH (21:07)
[2020-10-19 22:00] VITALS: BP 136/96
[2020-10-19 23:00] VITALS: BP 133/89
[2020-10-20] VITALS (12 sets, daily range): BP systolic 120–143; BP diastolic 66–100
[2020-10-20 02:04] LABS: BILIRUBIN,URINE NEGATIVE (NEGATIVE); CLARITY,URINE CLEAR; COLOR,URINE YELLOW; GLUCOSE, URINE (UA) NEGATIVE (NEGATIVE); KETONES,URINE 3+ (NEGATIVE); LEUKOCYTE ESTERASE ,URINE NEGATIVE (NEGATIVE); NITRITE,URINE NEGATIVE (NEGATIVE); PROTEIN,URINE NEGATIVE (NEGATIVE)
[2020-10-20 02:16] LABS: AMPHETAMINE SCREEN, URINE POSITIVE (NEGATIVE); BACTERIA,URINE NEGATIVE /HPF; BARBITURATE SCREEN URINE NEGATIVE (NEGATIVE); BENZODIAZEPINES SCREEN URINE POSITIVE (NEGATIVE); CANNABINOID SCREEN, URINE POSITIVE (NEGATIVE); COCAINE SCREEN URINE NEGATIVE (NEGATIVE); METHADONE STAT NEGATIVE (NEGATIVE); METHAMPHETAMINE SCREEN URINE S POSITIVE (NEGATIVE); OPIATE SCREEN URINE NEGATIVE (NEGATIVE); OXYCODONE STAT NEGATIVE (NEGATIVE); PROPOXYPHENE STAT NEGATIVE (NEGATIVE); SQUAMOUS EPITHELIAL CELL,UR RARE /HPF; TRICYCLIC ANTIDEPRESSANTS SCRE NEGATIVE (NEGATIVE)
[2020-10-20 04:09] LABS: BASOPHILS % (AUTO) 0 % (0-10); EOSINOPHILS % (AUTO) 1 % (0-10); HEMATOCRIT 42 % (40-54); HEMOGLOBIN 13.6 g/dL (13.3-17.7); LYMPHOCYTES # (AUTO) 2.9 10^3/uL (1.0-4.0); LYMPHOCYTES % (AUTO) 35 % (12-44); MEAN CORPUSCULAR HEMOGLOBIN 26 pg (25-34); MEAN CORPUSCULAR HGB CONC 32 g/dL (32-36); MEAN CORPUSCULAR VOLUME 82 fL (80-99); MEAN PLATELET VOLUME 9.8 fL (9.0-12.2); MONOCYTES # (AUTO) 0.8 10^3/uL (0.0-1.0); MONOCYTES % (AUTO) 10 % (0-12); NEUTROPHILS # (AUTO) 4.6 10^3/uL (1.8-7.8); NEUTROPHILS % (AUTO) 55 % (42-75); PLATELET COUNT 238 10^3/uL (130-400); WHITE BLOOD COUNT 8.4 10^3/uL (4.3-11.0)
[2020-10-20 04:20] LABS: CHLORIDE 102 MMOL/L (98-107); POTASSIUM 2.8 MMOL/L (3.6-5.0); SODIUM 137 MMOL/L (135-145)
[2020-10-20 04:22] LABS: CALCIUM 8.1 MG/DL (8.5-10.1); GLUCOSE 97 MG/DL (70-105)
[2020-10-20 04:23] LABS: CARBON DIOXIDE 22 MMOL/L (21-32)
[2020-10-20 04:26] LABS: CREATININE SERUM 0.83 MG/DL (0.60-1.30); GFR ESTIMATED > 60
[2020-10-20 04:27] LABS: BUN/CREATININE RATIO 6
[2020-10-20 04:33] LABS: ACETAMINOPHEN 83 UG/ML (10-30)
[2020-10-20] MEDS: LACTATED RINGERS 1,000 ML IV SCH ×2 (05:33→14:16)
--- NOTE | 2020-10-20 05:54 | History & Physical-Hospitalist ---
History of Present Illness HPI/Chief Complaint Chief complaint: Tylenol overdose with meth intoxication History of present illness: This is a 29-year-old white male who apparently used methamphetamines and then took 100 Tylenol overdose. He does not recall why he did that but he denies any suicidal ideation at this current time. He has been given the antidote and the Tylenol level has become almost nonexistent and he denies any suicide ideation so he will go home. Source: patient Exam Limitations: no limitations Date Seen 10/20/20 Time Seen by a Provider: 11:30 Attending Physician Casie Toscano DO [facility] Center/[facility] [place] Referring Physician Date of Admission Oct 19, 2020 at 17:34 Home Medications & Allergies Home Medications Reviewed patient Home Medication Reconciliation performed by pharmacy medication reconciliations metallurgical or materials technician and/or nursing. Patients Allergies have been reviewed. Allergies Allergies Coded Allergies No Known Drug Allergies (Unverified01/12/09) Past Cswqhgh-Bjtozh-Lcdbex Hx Patient Social History Marrital Status: cohabiting Employed/Student: employed Smoking Status: Current Everyday Smoker Substance type: Methamphetamine Additional substance use comme: awaiting drug screen results Pt feels they are or have been: Unable to obtain Immunizations Up To Date PED Vaccines UTD: Yes Seasonal Allergies Seasonal Allergies: Yes Current Status Advance Directives: Unable to obtain Communicates: Verbally Primary Language: Serbian Implanted or Applied Medical D: None Past Medical History Surgeries: Appendectomy, Orthopedic Asthma Currently Using CPAP: No Currently Using BIPAP: No Gastroesophageal Reflux Chronic Back Pain ADD/ADHD, Anxiety, Suicide Attempts, Bipolar, Depression Blood Disorders: No Adverse Reaction/Blood Tranf: No Pasts Medical History 1. Bipolar II 2. Impulse control disorder 3. ADHD 4. History of suicide attempt x4 5. Gastroparesis, GERD, Gastritis 6. Illicit drug use- THC, Oxycodone, Xanax, Morphine, Meth Past Surgical History 1. Appendectomy 2. EGD 2008 [facility] Family Medical History Reviewed Nursing Family Hx Prostate cancer Grandfather Thyroid disease 19 MOTHER Review of Systems Constitutional: see HPI Physical Exam Physical Exam Vital Signs Vital Signs - First Documented 10/19/20 15:12 Temp 36.4 Pulse 92 Resp 15 B/P (MAP) 129/94 (106) Pulse Ox 96 O2 Delivery Room Air Capillary Refill : Less Than 3 Seconds Height, Weight, BMI Height: 6'1.00" Weight: 278lbs. 0.0oz. 126.605955sh; 33.92 BMI Method:Stated General Appearance: No Apparent Distress, Obese Eyes: Right Eye Normal Inspection, Right Eye PERRL HEENT: PERRL/EOMI, Normal ENT Inspection, Pharynx Normal, Moist Mucous Membranes Neck: Full Range of Motion, Normal Inspection, Non Tender Respiratory: Chest Non Tender, Lungs Clear, Normal Breath Sounds, No Accessory Muscle Use, No Respiratory Distress Cardiovascular: Regular Rate, Rhythm, No Edema, No Gallop, No JVD, No Murmur, Normal Peripheral Pulses Gastrointestinal: Normal Bowel Sounds, No Organomegaly, No Pulsatile Mass, Non Tender, Soft Back: Normal Inspection, No CVA Tenderness, No Vertebral Tenderness Extremity: Normal Capillary Refill, Normal Inspection, Normal Range of Motion, Non Tender, No Calf Tenderness, No Pedal Edema Neurologic/Psychiatric: Alert, Oriented x3, No Motor/Sensory Deficits, Normal Mood/Affect Skin: Normal Color, Warm/Dry Lymphatic: No Adenopathy Results Results/Procedures Labs Laboratory Tests 10/19/20 15:20 10/20/20 03:48 Patient resulted labs reviewed. Assessment/Plan Admission Diagnosis Assessment: Tylenol overdose responded to antidote Methamphetamine use Plan: Liver enzymes normal Antidote extremely helpful Discharge home Admission Status: Observation Diagnosis/Problems Diagnosis/Problems (1) Acetaminophen overdose Status: Acute Qualifiers: Encounter type: initial encounter Injury intent: intentional self-harm Qualified Codes: T39.1X2A - Poisoning by 4-aminophenol derivatives, intentional self-harm, initial encounter (2) Methamphetamine abuse Status: Acute CASIE TOSCANO DO Oct 20, 2020 05:54
[2020-10-20 06:07] LABS: ALBUMIN 4.2 GM/DL (3.2-4.5)
[2020-10-20 06:09] LABS: TOTAL PROTEIN 7.2 GM/DL (6.4-8.2)
[2020-10-20 06:11] LABS: BILIRUBIN,TOTAL 0.4 MG/DL (0.1-1.0)
[2020-10-20 06:15] LABS: BILIRUBIN,DIRECT 0.2 MG/DL (0.0-0.3); BILIRUBIN,INDIRECT 0.2 MG/DL
[2020-10-20] MEDS ORDERED: POTASSIUM CL 10MEQ/50ML IVPB 50 ML IV ONE (06:15)
[2020-10-20] MEDS: POTASSIUM CL 10MEQ/50ML IVPB 50 ML IV SCH ×4 (07:26→11:34)
[2020-10-20] MEDS ORDERED: KCL 20 MEQ TAB (K-DUR) PO ONE (13:15)
[2020-10-20 13:18] LABS: ALBUMIN 3.5 GM/DL (3.2-4.5)
[2020-10-20 13:22] LABS: BILIRUBIN,TOTAL 0.5 MG/DL (0.1-1.0)
[2020-10-20 13:23] LABS: INR 1.1 (0.8-1.4); PROTHROMBIN TIME PATIENT 14.6 SEC (12.2-14.7)
[2020-10-20 13:26] LABS: BILIRUBIN,DIRECT 0.2 MG/DL (0.0-0.3); BILIRUBIN,INDIRECT 0.3 MG/DL
[2020-10-21] MEDS ORDERED: KCL 20 MEQ TAB (K-DUR) PO SCH (06:00)
[2020-10-21] MEDS ORDERED: MAGNESIUM 1 GM/100 ML IVPB 100 ML IV SCH (06:00)
[2020-10-21] MEDS ORDERED: POTASSIUM CL 10MEQ/50ML IVPB 50 ML IV SCH (06:00)
== END 2020-10-20 17:20 | disposition home or self-care (01) | DRG 918 ==
LOC: EDUNIT# 15:12 → ER 15:13 → ICU 17:34
PROVIDERS: ADMIT Internal Medicine; ATTEND Internal Medicine
DX: T39.1X2A Poisoning by 4-Aminophenol derivatives, intentional self-harm, initial encounter (principal); F31.81 Bipolar II disorder; F15.129 Other stimulant abuse with intoxication, unspecified; R40.0 Somnolence; F17.210 Nicotine dependence, cigarettes, uncomplicated; K21.9 Gastro-esophageal reflux disease without esophagitis; F90.9 Attention-deficit hyperactivity disorder, unspecified type; F41.9 Anxiety disorder, unspecified; F63.9 Impulse disorder, unspecified
CPT/HCPCS: 36415; 80048; 80053; 80076; 80306; 80320; 80329; 81000; 82805; 85025; 85610; 85730; 93005

== ENCOUNTER 2020-11-19 14:02 | Emergency (ER) | payer SELFPAY ==
[~2020-11-19] VITALS: Ht 185.4 cm; Wt 118.0 kg
[~2020-11-19 14:02] MED LIST changes: -SULF1TAB35 PO; +SULF1TAB38 PO
[2020-11-19 14:33] VITALS: BP 137/91
--- NOTE | 2020-11-19 15:03 | ED Integumentary General ---
General Chief Complaint: Head/Cervical Problems Stated Complaint: L EYE LAC Source: patient Exam Limitations: no limitations History of Present Illness Date Seen by Provider: Nov 19, 2020 Time Seen by Provider: 15:03 Initial Comments This is a well appearing 30 yo male who presented to the ER with cut on his forehead above his left eye. Occurred apx 1.5 hours prior to arrival. Last Tetanus 2017. Reports very brief <3 seconds of LOC. Denies neck pain. Mild head ache. Once he was roomed noted to staff that he has also had cough for 3 days. No fever, chills, shortness of breath. No known COVID exposure. Denies taking COVID vaccine. Allergies and Home Medications Allergies Coded Allergies: No Known Drug Allergies (Unverified , 01/12/09) Home Medications Albuterol Sulfate 18 Gm Hfa.aer.ad, 18 GM IH Q4H PRN for WHEEZING Prescribed by: JACQUELYN HILLS on 02/03/18 1155 Paliperidone Palmitate 156 Mg/1 Ml Syringe, 156 MG IM MONTHLY, (Reported) Patient Home Medication List Home Medication List Reviewed: Yes Review of Systems Review of Systems Constitutional: see HPI EENTM: see HPI Respiratory: no symptoms reported Cardiovascular: no symptoms reported Gastrointestinal: no symptoms reported Genitourinary: no symptoms reported Musculoskeletal: no symptoms reported Skin: no symptoms reported Psychiatric/Neurological: No Symptoms Reported Endocrine: No Symptoms Reported Hematologic/Lymphatic: No Symptoms Reported Past Vofwsyc-Sxvpas-Kzypxn Hx Immunizations Up To Date Tetanus Booster (TDap): Less than 5yrs PED Vaccines UTD: Yes Seasonal Allergies Seasonal Allergies: Yes Past Medical History Surgeries: Yes (DENTAL, RT HAND) Appendectomy, Orthopedic Respiratory: Yes Asthma Currently Using CPAP: No Currently Using BIPAP: No Cardiac: No Neurological: No Genitourinary: No Gastrointestinal: Yes Gastroesophageal Reflux Musculoskeletal: Yes (chronic back and neck pain) Chronic Back Pain Endocrine: No Cancer: No Psychosocial: Yes (bipolar 2, ADHD, impulse control disorder) ADD/ADHD, Anxiety, Suicide Attempts, Bipolar, Depression Integumentary: No Blood Disorders: No Adverse Reaction/Blood Tranf: No Family Medical History Prostate cancer Grandfather Thyroid disease 19 MOTHER Physical Exam Vital Signs Vital Signs - First Documented 11/19/20 14:33 Temp 36.9 Pulse 90 Resp 18 B/P (MAP) 137/91 (106) Pulse Ox 98 O2 Delivery Room Air Capillary Refill : General Appearance: WD/WN, no apparent distress HEENT: PERRL/EOMI, normal ENT inspection, pharynx normal, other (2cm laceration over left eyebrow ) Neck: non-tender, full range of motion, supple, normal inspection Cardiovascular: regular rate, rhythm, no edema, no murmur Respiratory: lungs clear, normal breath sounds, no respiratory distress, no accessory muscle use Gastrointestinal: normal bowel sounds, non tender, soft Back: normal inspection, no vertebral tenderness Extremities: non-tender, normal inspection Neurologic/Psychiatric: no motor/sensory deficits, alert, normal mood/affect, oriented x 3 Skin: normal color, warm/dry Skin Problem Location: other (left upper eyebrow 2cm laceration ) Procedures/Interventions Wound Location: Other Other Wound Location superior to left eyebrow Wound Length (cm): 2 Wound's Depth, Shape: superficial, linear Wound Explored: clean Irrigated w/ Saline (ccs): 50 Betadine Prep?: No Anesthesia: 1% Lidocaine Volume Anesthetic (ccs): 2 Wound Debrided: minimal (5) Suture: Prolene Suture Size: 5-0 Number of Sutures: 5 Layer Closure?: 1 Site cleansed with saline and Chlorhexadine wash. Locally anesthetized area with 2cc Lidocaine 1%. Closed with 5-0 Prolene. Tolerated procedure well. Progress/Results/Core Measures Results/Orders Lab Results Laboratory Tests Test 11/19/20 15:00 Range/Units SARS-CoV-2 RNA (RT-PCR) Detected H Not Detecte My Orders Orders - MELLO PEREZ APRN Covid 19 Inhouse Test (11/19/20 15:01) Lidocaine 1% Inj 20 Ml (Xylocaine 1% Inj (11/19/20 15:15) Lidocaine 1% Inj 20 Ml (Xylocaine 1% Inj (11/19/20 15:04) Vital Signs/I&O 11/19/20 14:33 Temp 36.9 Pulse 90 Resp 18 B/P (MAP) 137/91 (106) Pulse Ox 98 O2 Delivery Room Air Progress Progress Note : Progress Note Patient examined and in no acute distress. Tolerated wound closure well. Rapid COVID positive. Reviewed discharge POC and he is agreeable with plan. Departure Impression Primary Impression: Laceration Additional Impression: COVID-19 Disposition: 01 HOME, SELF-CARE Condition: Improved Departure-Patient Inst. Decision time for Depature: 15:41 Referrals: [facility] (PCP/Family) Primary Care Physician Patient Instructions: Laceration Repair With Stitches ED, COVID-19 (DC) Add. Discharge Instructions: Plan: 1. Keep wound clean and dry. Isolate at home until you are released by [facility]. Use good hand hygiene. Anyone living in your house will also need to quarantine until released by the Health Department. 2. Was gently every day with mild soap and water and then pat dry. 3. Despite the best care, any wound may become infected. Watch for increased swelling, redness, drainage, or fever. 4. Follow up with your doctor or return of signs of infection noted. 5. Return in 10 days to have 5 sutures removed. Remain in your car and call before you enter to let staff know you are COVID positive. 6. Return to ER if you have any of the following symptoms: -Repeated vomiting -Confusion -Blurred vision or double vision -Difference in pupil size comparing left to right -Persistent headaches -Weakness of face, arms or leg muscles -Any new or concerning symptoms. All discharge instructions reviewed with patient and/or family. Voiced unders tanding. MELLO PEREZ PASTRY COOK HELPER Nov 19, 2020 15:03
[2020-11-19] MEDS ORDERED: LIDOCAINE 1% INJ 20 ML 20 ML VIAL ONE (15:04)
[2020-11-19] MEDS ORDERED: LIDOCAINE 1% INJ 20 ML 20 ML VIAL INJ ONE (15:15)
== END 2020-11-19 16:21 | disposition home or self-care (01) ==
LOC: EDUNIT# 14:02 → ER 14:04
DX: S01.112A Laceration without foreign body of left eyelid and periocular area, initial encounter (principal); U07.1 COVID-19; W26.8XXA Contact with other sharp object(s), not elsewhere classified, initial encounter
CPT/HCPCS: 87636; 99282

== ENCOUNTER 2021-08-01 20:43 | Emergency (ER) | payer SELFPAY ==
[~2021-08-01 20:43] MED LIST changes: +CYCL10TA25 PO; -CYCL10TA9 PO
--- NOTE | 2021-08-01 21:11 | ED GI ---
General Chief Complaint: Abdominal/GI Problems Stated Complaint: VOM BLOOD Source of Information: Patient Exam Limitations: No Limitations History of Present Illness Date Seen by Provider: Aug 01, 2021 Time Seen by Provider: 20:55 Initial Comments The patient presents to the ER by private conveyance from home with chief complaint of nausea vomiting diarrhea with a little bit of blood-tinged emesis tonight. Is been going on for 2 to 3 days. He has had malaise chills but no fever. No known sick contacts. No cough shortness of air or chest pain. Little bit of epigastric discomfort. Is not take anything for it yet. He has had his appendix out in the past. He ate earlier today and had a BM this morning which was loose. No history of IBD/IBS. No rash. 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 Allergies and Home Medications Allergies Coded Allergies: No Known Drug Allergies (Unverified , 01/12/09) Patient Home Medication List Home Medication List Reviewed: Yes Albuterol Sulfate (Ventolin Hfa) 18 Gm Hfa.aer.ad, 18 GM IH Q4H PRN for WHEEZING Prescribed by: JACQUELYN HILLS on 02/03/18 1155 Paliperidone Palmitate (Invega Sustenna) 156 Mg/1 Ml Syringe, 156 MG IM MONTHLY, (Reported) Entered as Reported by: JERROD BLAKELY on 02/02/18 1013 Review of Systems Review of Systems Constitutional: No chills, No diaphoresis EENTM: No Blurred Vision, No Double Vision, No Eye Pain Respiratory: Denies Cough, Denies Shortness of Air Cardiovascular: Denies Chest Pain, Denies Lightheadedness Gastrointestinal: See HPI, Abdominal Pain; Denies Constipated; Diarrhea, Nausea, Poor Fluid Intake, Vomiting Genitourinary: Denies Burning, Denies Discharge Musculoskeletal: No back pain, No joint pain All Other Systems Reviewed Negative Unless Noted: Yes Past Vhtytjz-Hfrtqr-Ddprdy Hx Patient Social History Tobacco Use?: Yes Tobacco type used: Cigarettes Use of E-Cig and/or Vaping dev: Yes E-Cig or Vaping type used: Nicotine Substance use?: Yes Substance type: Methamphetamine, Marijuana Alcohol Use?: No Immunizations Up To Date Tetanus Booster (TDap): Less than 5yrs PED Vaccines UTD: Yes Seasonal Allergies Seasonal Allergies: Yes Past Medical History Surgeries: Yes (DENTAL, RT HAND) Appendectomy, Orthopedic Respiratory: Yes Asthma Currently Using CPAP: No Currently Using BIPAP: No Cardiac: No Neurological: No Genitourinary: No Gastrointestinal: Yes Gastroesophageal Reflux Musculoskeletal: Yes (chronic back and neck pain) Chronic Back Pain Endocrine: No Cancer: No Psychosocial: Yes (bipolar 2, ADHD, impulse control disorder) ADD/ADHD, Anxiety, Suicide Attempts, Bipolar, Depression Integumentary: No Blood Disorders: No Adverse Reaction/Blood Tranf: No Family Medical History Prostate cancer Grandfather Thyroid disease 19 MOTHER Physical Exam Vital Signs Vital Signs - First Documented 08/01/21 21:02 Temp 36.4 Pulse 97 Resp 16 B/P (MAP) 148/93 (111) Pulse Ox 96 O2 Delivery Room Air Capillary Refill : Height/Weight/BMI Height: 6'1.00" Weight: 278lbs. 0.0oz. 126.526172il; 34.00 BMI Method:Stated General Appearance: mild distress, obese HEENT: PERRL/EOMI, normal ENT inspection ( or injection), TMs normal; No pharynx normal (Retropharynx is erythematous) Neck: non-tender, full range of motion, supple Respiratory: no respiratory distress, no accessory muscle use Cardiovascular: normal peripheral pulses, regular rate, rhythm, tachycardia (101) Peripheral Pulses: 2+ Radial Pulses (R), 2+ Radial Pulses (L) Gastrointestinal: normal bowel sounds, non tender, soft, no organomegaly Neurologic/Psychiatric: alert; No normal mood/affect (Anxious affect); oriented x 3 Skin: normal color, warm/dry Procedures/Interventions Suture Size: 5-0 Progress/Results/Core Measures Results/Orders Lab Results Laboratory Tests Test 08/01/21 21:06 08/01/21 21:12 Range/Units Influenza Type A (RT-PCR) Not Detected Not Detecte Influenza Type B (RT-PCR) Not Detected Not Detecte SARS-CoV-2 RNA (RT-PCR) Not Detected Not Detecte White Blood Count 8.5 4.3-11.0 10^3/uL Red Blood Count 5.33 4.30-5.52 10^6/uL Hemoglobin 14.5 13.3-17.7 g/dL Hematocrit 44 40-54 % Mean Corpuscular Volume 82 80-99 fL Mean Corpuscular Hemoglobin 27 25-34 pg Mean Corpuscular Hemoglobin Concent 33 32-36 g/dL Red Cell Distribution Width 12.3 10.0-14.5 % Platelet Count 230 130-400 10^3/uL Mean Platelet Volume 10.3 9.0-12.2 fL Immature Granulocyte % (Auto) 0 % Neutrophils (%) (Auto) 53 42-75 % Lymphocytes (%) (Auto) 37 12-44 % Monocytes (%) (Auto) 8 0-12 % Eosinophils (%) (Auto) 2 0-10 % Basophils (%) (Auto) 0 0-10 % Neutrophils # (Auto) 4.5 1.8-7.8 10^3/uL Lymphocytes # (Auto) 3.1 1.0-4.0 10^3/uL Monocytes # (Auto) 0.7 0.0-1.0 10^3/uL Eosinophils # (Auto) 0.2 0.0-0.3 10^3/uL Basophils # (Auto) 0.0 0.0-0.1 10^3/uL Immature Granulocyte # (Auto) 0.0 0.0-0.1 10^3/uL Sodium Level 140 135-145 MMOL/L Potassium Level 3.7 3.6-5.0 MMOL/L Chloride Level 105 98-107 MMOL/L Carbon Dioxide Level 20 L 21-32 MMOL/L Anion Gap 15 H 5-14 MMOL/L Blood Urea Nitrogen 11 7-18 MG/DL Creatinine 0.89 0.60-1.30 MG/DL Estimat Glomerular Filtration Rate 120 BUN/Creatinine Ratio 12 Glucose Level 113 H 70-105 MG/DL Calcium Level 9.0 8.5-10.1 MG/DL Corrected Calcium 8.9 8.5-10.1 MG/DL Magnesium Level 1.5 L 1.6-2.4 MG/DL Total Bilirubin 0.5 0.1-1.0 MG/DL Aspartate Amino Transf (AST/SGOT) 23 5-34 U/L Alanine Aminotransferase (ALT/SGPT) 30 0-55 U/L Alkaline Phosphatase 50 40-136 U/L C-Reactive Protein High Sensitivity 0.15 0.00-0.50 MG/DL Total Protein 7.1 6.4-8.2 GM/DL Albumin 4.1 3.2-4.5 GM/DL Lipase 50 8-78 U/L My Orders Orders - CADEN BLAKELY Ed Iv/Invasive Line Start (08/01/21 21:06) Lactated Ringers (Lr 1000 Ml Iv Solution (08/01/21 21:15) Ondansetron Injection (Zofran Injectio (08/01/21 21:15) Ketorolac Injection (Toradol Injection) (08/01/21 21:15) Pantoprazole Injection (Protonix Injecti (08/01/21 21:15) Cbc With Automated Diff (08/01/21 21:06) Comprehensive Metabolic Panel (08/01/21 21:06) Hs C Reactive Protein (08/01/21 21:06) Lipase (08/01/21 21:06) Covid 19 Inhouse Test (08/01/21 21:11) Magnesium (08/01/21 21:45) Influenza A And B By Pcr (08/01/21 21:06) Medications Given in ED Current Medications Medications Dose Ordered Sig/Josh Route Start Time Stop Time Status Last Admin Dose Admin Ketorolac Tromethamine 30 mg ONCE ONCE IVP 08/01/21 21:15 08/01/21 21:16 DC 08/01/21 21:19 30 MG Lactated Ringer's 1,000 ml @ 0 mls/hr Q0M ONCE IV 08/01/21 21:15 08/01/21 21:16 DC 08/01/21 21:19 999 MLS/HR Ondansetron HCl 8 mg ONCE ONCE IVP 08/01/21 21:15 08/01/21 21:16 DC 08/01/21 21:20 8 MG Pantoprazole 40 mg ONCE ONCE IV 08/01/21 21:15 08/01/21 21:16 DC 08/01/21 21:19 40 MG Vital Signs/I&O 08/01/21 21:02 Temp 36.4 Pulse 97 Resp 16 B/P (MAP) 148/93 (111) Pulse Ox 96 O2 Delivery Room Air Progress Progress Note #1: Time: 21:10 Progress Note 2 L of lactated Ringer's, 8 of Zofran and 30 of Toradol IV. Check some basic labs. He appears to have a gut bug. Influenza is also in the differential. We will swab him for flu and COVID. Progress Note #2: Time: 22:21 Progress Note The patient's symptoms are significantly improved. Plan to send him home with some Zofran and instructions to take Imodium. Departure Impression Primary Impression: Gastroenteritis and colitis, viral Disposition: HOME, SELF-CARE Condition: Stable Departure-Patient Inst. Decision time for Depature: 22:21 Referrals: [facility] (PCP/Family) Primary Care Physician Patient Instructions: Viral Gastroenteritis, Adult (DC) Add. Discharge Instructions: Drink lots of fluids. I recommend sports drinks such as Powerade or Gatorade. Zofran 1 to 2 tablets every 6 hours as needed to control nausea or vomiting. Imodium 2 tablets at first followed by 1 tablet every 4 hours afterwards that you are still having loose, watery stools. If your symptoms persist for more than 10 days then follow-up with your primary care doctor to have further evaluation. All discharge instructions reviewed with patient and/or family. Voiced understanding. Scripts Ondansetron (Ondansetron Odt) 4 Mg Tab.rapdis 4-8 MG PO Q6H PRN for NAUSEA/VOMITING, #15 TAB 0 Refills Prov: CADEN BLAKELY 08/01/21 Work/School Note: Work Release Form Date Seen in the Emergency Department: Aug 01, 2021 Return to Work: Aug 04, 2021 Restrictions: Return-No Fever (24hrs) CADEN BLAKELY Aug 01, 2021 21:10
[2021-08-01] MEDS ORDERED: PANTOPRAZOLE 40 MG (PROTONIX) VIAL IV ONE (21:15)
[2021-08-01] MEDS ORDERED: KETOROLAC 30 MG/ML VIAL IVP ONE (21:15)
[2021-08-01] MEDS ORDERED: ONDANSETRON 4 MG/2 ML (SDV) Z0FRAN IVP ONE (21:15)
[2021-08-01] MEDS ORDERED: LACTATED RINGERS 1,000 ML IV ONE (21:15)
[2021-08-01 21:23] LABS: BASOPHILS % (AUTO) 0 % (0-10); EOSINOPHILS # (AUTO) 0.2 10^3/uL (0.0-0.3); EOSINOPHILS % (AUTO) 2 % (0-10); HEMATOCRIT 44 % (40-54); HEMOGLOBIN 14.5 g/dL (13.3-17.7); LYMPHOCYTES # (AUTO) 3.1 10^3/uL (1.0-4.0); LYMPHOCYTES % (AUTO) 37 % (12-44); MEAN CORPUSCULAR HEMOGLOBIN 27 pg (25-34); MEAN CORPUSCULAR HGB CONC 33 g/dL (32-36); MEAN CORPUSCULAR VOLUME 82 fL (80-99); MEAN PLATELET VOLUME 10.3 fL (9.0-12.2); MONOCYTES # (AUTO) 0.7 10^3/uL (0.0-1.0); MONOCYTES % (AUTO) 8 % (0-12); NEUTROPHILS # (AUTO) 4.5 10^3/uL (1.8-7.8); NEUTROPHILS % (AUTO) 53 % (42-75); PLATELET COUNT 230 10^3/uL (130-400); WHITE BLOOD COUNT 8.5 10^3/uL (4.3-11.0)
[2021-08-01 21:51] LABS: ALBUMIN 4.1 GM/DL (3.2-4.5); POTASSIUM 3.7 MMOL/L (3.6-5.0)
[2021-08-01 21:54] LABS: TOTAL PROTEIN 7.1 GM/DL (6.4-8.2)
[2021-08-01 21:56] LABS: BILIRUBIN,TOTAL 0.5 MG/DL (0.1-1.0)
[2021-08-01 21:58] LABS: CREATININE SERUM 0.89 MG/DL (0.60-1.30)
[2021-08-01] MEDS ORDERED: MAGNESIUM 1 GM/100 ML IVPB 100 ML IV ONE (22:15)
[2021-08-01] MEDS ORDERED: ONDA4TAB11 PO (22:26)
[2021-08-01 22:30] VITALS: BP 138/89
== END 2021-08-01 22:36 | disposition home or self-care (01) ==
LOC: EDUNIT# 20:43 → ER 20:46
DX: A08.4 Viral intestinal infection, unspecified (principal); E66.9 Obesity, unspecified; Z68.34 Body mass index [BMI] 34.0-34.9, adult; Z72.0 Tobacco use; Z20.822 Contact with and (suspected) exposure to COVID-19
CPT/HCPCS: 36415; 80053; 83690; 83735; 85025; 86141; 87636

== ENCOUNTER 2021-10-07 19:38 | Emergency (ER) | payer SELFPAY ==
[~2021-10-07] VITALS: Ht 185.4 cm; Wt 125.0 kg
[~2021-10-07 19:38] MED LIST changes: +ONDA4TAB11 PO
--- NOTE | 2021-10-07 19:48 | ED Cardiac General ---
History of Present Illness General Chief Complaint: Chest Pain Stated Complaint: CHEST PAIN NO CARDIAC HISTORY History of Present Illness Date Seen by Provider: Oct 07, 2021 Time Seen by Provider: 19:42 Initial Comments 30-year-old male presents for substernal chest pain that began at approximately 1900 today. He has no previous cardiac history. 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 He reports a cough for the last 3 to 4 weeks. He has had no medication for symptoms. He denies any heartburn, nausea or vomiting. Timing/Duration: 1 hour Severity: mild Location: substernal Prior CP/Workup: no prior chest pain NTG SL ACCOUNT ENGINEER: No ASA po ACCOUNT ENGINEER: No Associated Systoms: Chest Pain (lower sternal border), Cough (last 4-5 weeks); No Diaphoresis, No Fever/Chills, No Loss of Appetite, No Malaise, No Nausea/Vomiting, No Shortness of Air, No Syncope Allergies and Home Medications Allergies Coded Allergies: No Known Drug Allergies (Unverified , 01/12/09) Patient Home Medication List Home Medication List Reviewed: Yes Albuterol Sulfate (Ventolin Hfa) 18 Gm Hfa.aer.ad, 18 GM IH Q4H PRN for WHEEZING Prescribed by: AJCQUELYN HILLS on 02/03/18 1155 Ondansetron (Ondansetron Odt) 4 Mg Tab.rapdis, 4-8 MG PO Q6H PRN for NAUSEA/VOMITING Prescribed by: CADEN BLAKELY on 08/01/21 2226 Paliperidone Palmitate (Invega Sustenna) 156 Mg/1 Ml Syringe, 156 MG IM MONTHLY, (Reported) Entered as Reported by: JERROD BLAKELY on 02/02/18 1013 Review of Systems Review of Systems Constitutional: no symptoms reported, see HPI; No fever, No malaise, No weakness EENTM: No Symptoms Reported, See HPI Respiratory: See HPI, Cough Cardiovascular: See HPI, Chest Pain Genitourinary: No Symptoms Reported, See HPI All Other Systems Reviewed Negative Unless Noted: Yes Past Sfemggf-Wisvgt-Lgilke Hx Immunizations Up To Date Tetanus Booster (TDap): Less than 5yrs PED Vaccines UTD: Yes Seasonal Allergies Seasonal Allergies: Yes Past Medical History Surgeries: Yes (DENTAL, RT HAND) Appendectomy, Orthopedic Respiratory: Yes Asthma Currently Using CPAP: No Currently Using BIPAP: No Cardiac: No Neurological: No Genitourinary: No Gastrointestinal: Yes Gastroesophageal Reflux Musculoskeletal: Yes (chronic back and neck pain) Chronic Back Pain Endocrine: No Cancer: No Psychosocial: Yes (bipolar 2, ADHD, impulse control disorder) ADD/ADHD, Anxiety, Suicide Attempts, Bipolar, Depression Integumentary: No Blood Disorders: No Adverse Reaction/Blood Tranf: No Family Medical History Reviewed Nursing Family Hx Prostate cancer Grandfather Thyroid disease 19 MOTHER Physical Exam Vital Signs Vital Signs - First Documented 10/07/21 10/07/21 19:40 21:16 Temp 36.4 Pulse 70 Resp 18 B/P (MAP) 145/79 (101) Pulse Ox 97 O2 Delivery Room Air Capillary Refill : Height, Weight, BMI Height: 6'1.00" Weight: 278lbs. 0.0oz. 126.008576ab; 34.00 BMI Method:Stated General Appearance: No Apparent Distress, WD/WN HEENT: PERRL/EOMI, TMs Normal, Normal ENT Inspection, Pharynx Normal Respiratory: Chest Non Tender, Lungs Clear, Normal Breath Sounds Cardiovascular: Regular Rate, Rhythm, No Edema, No Murmur, Normal Peripheral Pulses Gastrointestinal: Normal Bowel Sounds, Non Tender, Soft Extremity: Normal Capillary Refill, Normal Inspection, Normal Range of Motion, No Pedal Edema Neurologic/Psychiatric: Alert, Oriented x3, No Motor/Sensory Deficits Skin: Normal Color, Warm/Dry Procedures/Interventions Suture Size: 5-0 Progress/Results/Core Measures Results/Orders Lab Results Laboratory Tests Test 10/07/21 19:50 10/07/21 20:19 Range/Units White Blood Count 6.9 4.3-11.0 10^3/uL Red Blood Count 5.02 4.30-5.52 10^6/uL Hemoglobin 13.6 13.3-17.7 g/dL Hematocrit 41 40-54 % Mean Corpuscular Volume 81 80-99 fL Mean Corpuscular Hemoglobin 27 25-34 pg Mean Corpuscular Hemoglobin Concent 33 32-36 g/dL Red Cell Distribution Width 12.1 10.0-14.5 % Platelet Count 199 130-400 10^3/uL Mean Platelet Volume 10.5 9.0-12.2 fL Immature Granulocyte % (Auto) 0 % Neutrophils (%) (Auto) 55 42-75 % Lymphocytes (%) (Auto) 35 12-44 % Monocytes (%) (Auto) 7 0-12 % Eosinophils (%) (Auto) 2 0-10 % Basophils (%) (Auto) 0 0-10 % Neutrophils # (Auto) 3.8 1.8-7.8 10^3/uL Lymphocytes # (Auto) 2.4 1.0-4.0 10^3/uL Monocytes # (Auto) 0.5 0.0-1.0 10^3/uL Eosinophils # (Auto) 0.1 0.0-0.3 10^3/uL Basophils # (Auto) 0.0 0.0-0.1 10^3/uL Immature Granulocyte # (Auto) 0.0 0.0-0.1 10^3/uL Prothrombin Time 12.4 12.2-14.7 SEC INR Comment 0.9 0.8-1.4 Activated Partial Thromboplast Time 31 24-35 SEC Sodium Level 138 135-145 MMOL/L Potassium Level 3.5 L 3.6-5.0 MMOL/L Chloride Level 104 98-107 MMOL/L Carbon Dioxide Level 21 21-32 MMOL/L Anion Gap 13 5-14 MMOL/L Blood Urea Nitrogen 7 7-18 MG/DL Creatinine 0.89 0.60-1.30 MG/DL Estimat Glomerular Filtration Rate 120 BUN/Creatinine Ratio 8 Glucose Level 123 H 70-105 MG/DL Calcium Level 8.8 8.5-10.1 MG/DL Corrected Calcium 8.6 8.5-10.1 MG/DL Magnesium Level 1.7 1.6-2.4 MG/DL Total Bilirubin 0.4 0.1-1.0 MG/DL Aspartate Amino Transf (AST/SGOT) 30 5-34 U/L Alanine Aminotransferase (ALT/SGPT) 38 0-55 U/L Alkaline Phosphatase 55 40-136 U/L Myoglobin 94.1 H 10.0-92.0 NG/ML Troponin I < 0.028 <0.028 NG/ML Total Protein 7.3 6.4-8.2 GM/DL Albumin 4.2 3.2-4.5 GM/DL Influenza Type A (RT-PCR) Not Detected Not Detecte Influenza Type B (RT-PCR) Not Detected Not Detecte SARS-CoV-2 RNA (RT-PCR) Not Detected Not Detecte My Orders Orders - BOLA RAMIREZ [employer] Cbc With Automated Diff (10/07/21 19:41) Magnesium (10/07/21 19:41) Chest 1 View, Ap/Pa Only (10/07/21 19:41) Ekg Tracing (10/07/21 19:41) Comprehensive Metabolic Panel (10/07/21 19:41) Myoglobin Serum (10/07/21 19:41) Protime With Inr (10/07/21 19:41) Partial Thromboplastin Time (10/07/21 19:41) O2 (10/07/21 19:41) Monitor-Rhythm Ecg Trace Only (10/07/21 19:41) Ed Iv/Invasive Line Start (10/07/21 19:41) Troponin I Samantha (10/07/21 19:50) Aspirin Chewable Tablet (Baby Aspirin Ch (10/07/21 20:13) Covid 19 Inhouse Test (10/07/21 20:14) Influenza A And B By Pcr (10/07/21 20:14) Acetaminophen Tablet (Tylenol Tablet) (10/07/21 21:04) Vital Signs/I&O 10/07/21 10/07/21 19:40 21:16 Temp 36.4 Pulse 70 71 Resp 18 26 B/P (MAP) 145/79 (101) 120/86 Pulse Ox 97 96 O2 Delivery Room Air Progress Progress Note : Time: 19:42 Progress Note Patient seen and evaluated, will obtain labs, EKG and chest x-ray. Aspirin 324 mg orally. 2029 COVID and influenza negative. 2099 patient reports improvement in his symptoms. Discharge instructions and return precautions reviewed. Initial ECG Impression Date: Oct 07, 2021 Initial ECG Impression Time: 19:44 Initial ECG Rate: 69 Initial ECG Rhythm: Normal Sinus Initial ECG Intervals: Normal Initial ECG Intervals VA 146, QRS 108, QT 360, QTc 379. [place] P 30, R 12, T 29. Initial ECG Impression: Normal Diagnostic Imaging Diagonstic Imaging: Xray Plain Films/CT/US/NM/MRI: chest Comments NAME: KAMRANALEXLESLY Chamberlain MED REC#: [id number] PT STATUS: REG ER : 1990 PHYSICIAN: BOLA RAMIREZ ADMIT DATE: 10/07/21/ER Signed Date of Exam:10/07/21 CHEST 1 VIEW, AP/PA ONLY Indication: Chest pain Portable chest 8:05 PM Heart size and pulmonary vascularity are normal. Lungs are clear. There are no effusions or pneumothoraces. IMPRESSION: No acute abnormalities in the chest Dictated by: Dictated on workstation # [id number] Dict: 10/07/212019 Trans: 10/07/212019 TCB [id number] Interpreted by: ARIELLE MORENO MD Electronically signed by: ARIELLE MORENO MD 10/07/212019 Reviewed: Reviewed by Me Departure Impression Primary Impression: Costochondral chest pain Disposition: HOME, SELF-CARE Condition: Improved Departure-Patient Inst. Decision time for Depature: 20:58 Referrals: [facility] (PCP/Family) Primary Care Physician Patient Instructions: Costochondritis (DC) Add. Discharge Instructions: Alternate ibuprofen 600 mg and Tylenol 650 mg every 4 hours for discomfort. Warm moist compresses to the chest wall for pain. Increase water intake. Follow-up with your primary care provider if symptoms are not improving or worsen. Return to the emergency department for new, urgent healthcare needs. All discharge instructions reviewed with patient and/or family. Voiced understanding. Work/School Note: Work Release Form Date Seen in the Emergency Department: Oct 07, 2021 Return to Work: Oct 08, 2021 Restrictions: No Restrictions BOLA RAMIREZ Oct 07, 2021 19:48
[2021-10-07 20:00] LABS: BASOPHILS % (AUTO) 0 % (0-10); EOSINOPHILS # (AUTO) 0.1 10^3/uL (0.0-0.3); EOSINOPHILS % (AUTO) 2 % (0-10); HEMATOCRIT 41 % (40-54); HEMOGLOBIN 13.6 g/dL (13.3-17.7); LYMPHOCYTES # (AUTO) 2.4 10^3/uL (1.0-4.0); LYMPHOCYTES % (AUTO) 35 % (12-44); MEAN CORPUSCULAR HEMOGLOBIN 27 pg (25-34); MEAN CORPUSCULAR HGB CONC 33 g/dL (32-36); MEAN CORPUSCULAR VOLUME 81 fL (80-99); MEAN PLATELET VOLUME 10.5 fL (9.0-12.2); MONOCYTES # (AUTO) 0.5 10^3/uL (0.0-1.0); MONOCYTES % (AUTO) 7 % (0-12); NEUTROPHILS # (AUTO) 3.8 10^3/uL (1.8-7.8); NEUTROPHILS % (AUTO) 55 % (42-75); PLATELET COUNT 199 10^3/uL (130-400); WHITE BLOOD COUNT 6.9 10^3/uL (4.3-11.0)
[2021-10-07] MEDS ORDERED: ASPIRIN 81 MG CHEW (CHILDREN'S ASA) PO STA (20:13)
[2021-10-07 20:16] LABS: INR 0.9 (0.8-1.4); PROTHROMBIN TIME PATIENT 12.4 SEC (12.2-14.7)
--- NOTE | 2021-10-07 20:22 | Diagnostic Imaging Report ---
Indication: Chest pain Portable chest 8:05 PM Heart size and pulmonary vascularity are normal. Lungs are clear. There are no effusions or pneumothoraces. IMPRESSION: No acute abnormalities in the chest Dictated by: Dictated on workstation # [id number]
[2021-10-07 20:27] LABS: ALANINE AMINOTRANSFERASE 38 U/L (0-55); ALBUMIN 4.2 GM/DL (3.2-4.5); ALKALINE PHOSPHATASE 55 U/L (40-136); BILIRUBIN,TOTAL 0.4 MG/DL (0.1-1.0); BUN/CREATININE RATIO 8; CALCIUM 8.8 MG/DL (8.5-10.1); CARBON DIOXIDE 21 MMOL/L (21-32); CREATININE SERUM 0.89 MG/DL (0.60-1.30); GFR ESTIMATED 120; GLUCOSE 123 MG/DL (70-105); MAGNESIUM 1.7 MG/DL (1.6-2.4); TOTAL PROTEIN 7.3 GM/DL (6.4-8.2)
[2021-10-07 21:03] LABS: CHLORIDE 104 MMOL/L (98-107); POTASSIUM 3.5 MMOL/L (3.6-5.0); SODIUM 138 MMOL/L (135-145)
[2021-10-07] MEDS ORDERED: ACETAMINOPHEN 500 MG TAB (TYLENOL) PO STA (21:04)
[2021-10-07 21:16] VITALS: BP 120/86
== END 2021-10-07 21:16 | disposition home or self-care (01) ==
LOC: EDUNIT# 19:38 → ER 19:41
DX: M94.0 Chondrocostal junction syndrome [Tietze] (principal); Z20.822 Contact with and (suspected) exposure to COVID-19
CPT/HCPCS: 36415; 71045; 80053; 83735; 83874; 84484; 85025; 85610; 85730; 87636; 93005; 93041

== ENCOUNTER 2021-10-14 23:10 | Emergency (ER) | payer SELFPAY ==
--- NOTE | 2021-10-14 23:57 | ED Back Pain ---
General Stated Complaint: RT SHOULDER BLADE KNOT-PAINFUL Source of Information: Patient Exam Limitations: No Limitations History of Present Illness Date Seen by Provider: Oct 14, 2021 Time Seen by Provider: 23:39 Initial Comments Patient to the ER by private conveyance from home with chief complaint 2 to 3 weeks of progressively worsening knot in his right back between the spine and shoulder blade at about the level of T8-T10. He said his girlfriend gave him a hard massage on the area to try and break it loose yesterday and it is just continued to hurt. He has not taken anything for it. No numbness, tingling, loss of control of bowel or bladders, saddle anesthesia. Allergies and Home Medications Allergies Coded Allergies: No Known Drug Allergies (Unverified , 01/12/09) Patient Home Medication List Home Medication List Reviewed: Yes Albuterol Sulfate (Ventolin Hfa) 18 Gm Hfa.aer.ad, 18 GM IH Q4H PRN for WHEEZING Prescribed by: JACQUELYN HILLS on 02/03/18 1155 Ondansetron (Ondansetron Odt) 4 Mg Tab.rapdis, 4-8 MG PO Q6H PRN for NAUSEA/VOMITING Prescribed by: CADEN BLAKELY on 08/01/21 2226 Paliperidone Palmitate (Invega Sustenna) 156 Mg/1 Ml Syringe, 156 MG IM MONTHLY, (Reported) Entered as Reported by: JERROD BLAKELY on 02/02/18 1013 Review of Systems Constitutional: No chills, No diaphoresis EENTM: No ear discharge, No ear pain Respiratory: No cough, No short of breath Cardiovascular: No chest pain, No edema Gastrointestinal: No abdominal pain, No nausea Genitourinary: No discharge, No dysuria Musculoskeletal: back pain; No joint pain All Other Systems Reviewed Negative Unless Noted: Yes Past Gxrvgij-Goeaut-Slozti Hx Patient Social History Tobacco Use?: No Use of E-Cig and/or Vaping dev: No Immunizations Up To Date Tetanus Booster (TDap): Less than 5yrs PED Vaccines UTD: Yes First/Initial COVID19 Vaccinat: march 2021 Seasonal Allergies Seasonal Allergies: Yes Past Medical History Surgeries: Yes (DENTAL, RT HAND) Appendectomy, Orthopedic Respiratory: Yes Asthma Currently Using CPAP: No Currently Using BIPAP: No Cardiac: No Neurological: No Genitourinary: No Gastrointestinal: Yes Gastroesophageal Reflux Musculoskeletal: Yes (chronic back and neck pain) Chronic Back Pain Endocrine: No Cancer: No Psychosocial: Yes (bipolar 2, ADHD, impulse control disorder) ADD/ADHD, Anxiety, Suicide Attempts, Bipolar, Depression Integumentary: No Blood Disorders: No Adverse Reaction/Blood Tranf: No Family Medical History Prostate cancer Grandfather Thyroid disease 19 MOTHER Physical Exam Vital Signs Capillary Refill : Height, Weight, BMI Height: 6'1.00" Weight: 278lbs. 0.0oz. 126.916154uc; 36.00 BMI Method:Stated General Appearance: No Apparent Distress, WD/WN HEENT: PERRL/EOMI, Pharynx Normal, Moist Mucous Membranes Neck: Full Range of Motion, Normal Inspection Cardiovascular: Regular Rate, Rhythm, No Edema, Normal Peripheral Pulses Respiratory: No Accessory Muscle Use, No Respiratory Distress Back: Normal Inspection, No Vertebral Tenderness, Muscle Spasm (Right paraspinous T8-T10) Extremity: No Pedal Edema Procedures/Interventions Suture Size: 5-0 Progress Tenderness point injection using half cc of lidocaine, 1 cc of bupivacaine and 1 cc of Depo-Medrol 40 mg/mL. Cleaned the site with alcohol and allowed to dry. Use a track method and a 25-gauge 1-1/2 inch needle and inserted into the muscle spasm. Could not aspirate any blood and injected the solution around the area. Sterile bandage was placed. Patient tolerated procedure well. Progress/Results/Core Measures Results/Orders My Orders Orders - CADEN BLAKELY Methylprednisolone Acetate Inj (Depo-Med (10/15/21 00:00) Medications Given in ED Current Medications Medications Dose Ordered Sig/Josh Route Start Time Stop Time Status Last Admin Dose Admin Methylprednisolone Acetate 40 mg ONCE ONCE IM 10/15/21 00:00 10/15/21 00:01 DC 10/14/21 23:57 40 MG Progress Progress Note : Time: 23:55 Progress Note Plan to do a tender point injection using lidocaine, bupivacaine and Depo- Medrol. Departure Impression Primary Impression: Spasm of paraspinal muscle Disposition: 01 HOME, SELF-CARE Condition: Stable Departure-Patient Inst. Decision time for Depature: 00:05 Referrals: [facility] (PCP/Family) Primary Care Physician Patient Instructions: Muscle Spasms (DC), Dry Needling Add. Discharge Instructions: The numbing medicine should wear off by tomorrow morning. The steroid should kick in in 12 to 24 hours and will reduce the inflammation in the area. Continue to use heat, topical creams such as icy hot, Biofreeze, Salonpas patches etc. as necessary. Tylenol 1000 mg every 8 hours as needed for pain. Naproxen 2 tablets twice a day as needed for pain. If not seeing improvement in the next week and follow-up with your primary care doctor. CADEN BLAKELY J Oct 14, 2021 23:57
[2021-10-15] MEDS ORDERED: methylPREDNISolone 40 MG/ML (DEPO MEDROL) VIAL IM ONE
[2021-10-15 00:09] VITALS: BP 131/82
== END 2021-10-15 00:09 | disposition home or self-care (01) ==
LOC: EDUNIT# 23:10 → ER 23:14
DX: M62.830 Muscle spasm of back (principal)
CPT/HCPCS: 99284

== ENCOUNTER 2022-02-03 19:55 | Emergency (ER) | payer SELFPAY ==
[2022-02-03] MEDS ORDERED: RX-ONDANSETRON 4 MG ODT (ZOFRAN) PPK #4 PO STA (20:17)
--- NOTE | 2022-02-03 20:23 | ED Cough/URI ---
General Chief Complaint: COVID19 Suspect/Confirmed Stated Complaint: COUGH, CONGESTION, FEVER Nursing Triage Note: PT ARRIVAL TO ER WITH COMPLAINT OF COVID SYMPTOMS, N/V/D, FEVER, HEADACHE, FATIGUE. PT LIVES IN [facility] AND HAD 4 PEOPLE RECENTLY SICK. PT IS UNSURE IF IT WAS COVID THOUGH. PT DID TAKE IBUPROFEN TODAY. TEMP 38.4 Source: patient Exam Limitations: no limitations History of Present Illness Date Seen by Provider: Feb 03, 2022 Time Seen by Provider: 20:05 Initial Comments Patient to the ER by private conveyance from home with chief complaint started having some vomiting this morning and fever of 101.3 today. He said a runny nose, sore throat for the past 4 or 5 days and thought it was just allergies. He says several people are out from work from an illness from last week and he thinks he caught what they got. He is not having any diarrhea. He has had an appendectomy. He is not having any abdominal pain. Allergies and Home Medications Allergies Coded Allergies: No Known Drug Allergies (Unverified , 01/12/09) Patient Home Medication List Home Medication List Reviewed: Yes Albuterol Sulfate (Ventolin Hfa) 18 Gm Hfa.aer.ad, 18 GM IH Q4H PRN for WHEEZING Prescribed by: JACQUELYN HILLS on 02/03/18 1155 Ondansetron (Ondansetron Odt) 4 Mg Tab.rapdis, 4-8 MG PO Q6H PRN for NAUSEA/VOMITING Prescribed by: CADEN BLAKELY on 08/01/21 2226 Paliperidone Palmitate (Invega Sustenna) 156 Mg/1 Ml Syringe, 156 MG IM MONTHLY, (Reported) Entered as Reported by: JERROD BLAKELY on 02/02/18 1013 Review of Systems Review of Systems Constitutional: No chills, No diaphoresis EENTM: No ear discharge, No hearing loss Respiratory: No cough, No short of breath Cardiovascular: No edema, No palpitations Gastrointestinal: No abdominal pain, No constipation Genitourinary: No dysuria, No frequency Musculoskeletal: No joint pain, No joint swelling All Other Systems Reviewed Negative Unless Noted: Yes Past Qwsvcaj-Baxwzb-Lgqpyn Hx Patient Social History Tobacco Use?: No Use of E-Cig and/or Vaping dev: Yes E-Cig or Vaping type used: Nicotine Use of E-Cig and/or Vaping Chon: Current Everyday User Substance use?: No Alcohol Use?: No Pt feels they are or have been: No Immunizations Up To Date Tetanus Booster (TDap): Less than 5yrs PED Vaccines UTD: Yes Influenza Vaccine Up-to-Date: No; Not Current First/Initial COVID19 Vaccinat: march 2021 Second COVID19 Vaccination [place]: march 2021 Third COVID19 Vaccination Date: march 2021 COVID19 Vaccine Process Owner: [employer] Seasonal Allergies Seasonal Allergies: Yes Past Medical History Surgeries: Yes (DENTAL, RT HAND) Appendectomy, Orthopedic Respiratory: Yes Asthma Currently Using CPAP: No Currently Using BIPAP: No Cardiac: No Neurological: No Genitourinary: No Gastrointestinal: Yes Gastroesophageal Reflux Musculoskeletal: Yes (chronic back and neck pain) Chronic Back Pain Endocrine: No Cancer: No Psychosocial: Yes (bipolar 2, ADHD, impulse control disorder) ADD/ADHD, Anxiety, Suicide Attempts, Bipolar, Depression Integumentary: No Blood Disorders: No Adverse Reaction/Blood Tranf: No Family Medical History Prostate cancer Grandfather Thyroid disease 19 MOTHER Physical Exam Vital Signs - First Documented 02/03/22 20:01 Temp 38.4 Pulse 87 Resp 20 B/P (MAP) 168/80 (109) Pulse Ox 99 O2 Delivery Room Air Capillary Refill : Height: 6'1.00" Weight: 278lbs. 0.0oz. 126.215046bs; 36.00 BMI Method:Stated General Appearance: WD/WN, no apparent distress Eyes: Bilateral Eye Normal Inspection, Bilateral Eye PERRL, Bilateral Eye EOMI HEENT: PERRL/EOMI, normal ENT inspection; No TMs normal (Mild mucoid effusions bilaterally without injection erythema or opacification.); pharynx normal, other (There is a small amount of blue flakes of spongelike material in bilateral canals) Neck: non-tender, full range of motion, supple, normal inspection Respiratory: lungs clear, normal breath sounds, no respiratory distress, no accessory muscle use Cardiovascular: normal peripheral pulses, regular rate, rhythm Gastrointestinal: normal bowel sounds, non tender, soft Procedures/Interventions Suture Size: 5-0 Progress/Results/Core Measures Suspected Sepsis SIRS Temperature: Pulse: 87 Respiratory Rate: 20 Blood Pressure 168 /80 Mean: 109 Results/Orders Lab Results Laboratory Tests Test 02/03/22 20:12 Range/Units Influenza Type A (RT-PCR) Not Detected Not Detecte Influenza Type B (RT-PCR) Not Detected Not Detecte SARS-CoV-2 RNA (RT-PCR) Not Detected Not Detecte My Orders Orders - CADEN BLAKELY Covid 19 Inhouse Test (02/03/22 20:01) Influenza A And B By Pcr (02/03/22 20:01) Rx-Ondansetron Po (Rx-Zofran Po) (02/03/22 20:17) Vital Signs/I&O 02/03/22 20:01 Temp 38.4 Pulse 87 Resp 20 B/P (MAP) 168/80 (109) Pulse Ox 99 O2 Delivery Room Air Capillary Refill : Blood Pressure Mean: 109 Progress Note : Time: 20:20 Progress Note ondansetron odt take home. Aseptic vital signs. Clear sounding lungs. Mucoid effusion noticed in the ears likely a viral syndrome. COVID and flu swabs done. Patient is okay with this plan Departure Impression Primary Impression: Upper respiratory infection Qualified Codes: J06.9 - Acute upper respiratory infection, unspecified Additional Impression: Gastroenteritis and colitis, viral Disposition: HOME, SELF-CARE Condition: Stable Departure-Patient Inst. Decision time for Depature: 20:59 Referrals: [facility] [place] (PCP/Family) Primary Care Physician Patient Instructions: Viral Upper Respiratory Infection, Adult (DC), Viral Gastroenteritis, Adult (DC) Add. Discharge Instructions: Drink plenty of fluids. Ondansetron 1 tablet every 6 hours as needed for nausea and or vomiting. If you still have nausea and vomiting 30 minutes after you take it then take a second dose every 6 hours. You may use Imodium 2 tablets followed by 1 tablet every 4 hours afterwards that you are still having loose, watery stools. Return to the ER for intractable symptoms, severe fever despite Tylenol and Motrin about 102.5 or other worrisome symptoms. All discharge instructions reviewed with patient and/or family. Voiced understanding. Scripts Ondansetron (Ondansetron Odt) 4 Mg Tab.rapdis 4-8 MG PO Q6H PRN for NAUSEA/VOMITING, #15 TAB 0 Refills Prov: CADEN BLAKELY 02/03/22 Work/School Note: Work Release Form Date Seen in the Emergency Department: Feb 03, 2022 Return to Work: Feb 09, 2022 Restrictions: Return-No Fever (24hrs) Other Restrictions Listed Below: May return sooner if symptom-free for 24 hours without any meds to mask. CADEN BLAKELY Feb 03, 2022 20:23
[2022-02-03] MEDS ORDERED: ONDA4TAB11 PO (21:03)
[2022-02-03 21:10] VITALS: BP 121/76
== END 2022-02-03 21:08 | disposition home or self-care (01) ==
LOC: EDUNIT# 19:55 → ER 19:57
DX: J06.9 Acute upper respiratory infection, unspecified (principal); A08.4 Viral intestinal infection, unspecified; F17.290 Nicotine dependence, other tobacco product, uncomplicated; Z20.822 Contact with and (suspected) exposure to COVID-19
CPT/HCPCS: 87636; 99283

== ENCOUNTER 2022-06-08 20:12 | Emergency (ER) | payer BC, OTHER ==
[~2022-06-08] VITALS: Ht 185.4 cm; Wt 136.0 kg
[2022-06-08] MEDS ORDERED: ONDANSETRON 4 MG (ZOFRAN) ORAL DISSOLVE TAB PO STA (20:43)
[2022-06-08 21:01] LABS: BASOPHILS % (AUTO) 0 % (0-10); EOSINOPHILS # (AUTO) 0.1 10^3/uL (0.0-0.3); EOSINOPHILS % (AUTO) 2 % (0-10); HEMATOCRIT 43 % (40-54); LYMPHOCYTES # (AUTO) 2.5 10^3/uL (1.0-4.0); LYMPHOCYTES % (AUTO) 31 % (12-44); MEAN CORPUSCULAR HEMOGLOBIN 27 pg (25-34); MEAN CORPUSCULAR HGB CONC 33 g/dL (32-36); MEAN CORPUSCULAR VOLUME 82 fL (80-99); MEAN PLATELET VOLUME 10.3 fL (9.0-12.2); MONOCYTES # (AUTO) 0.6 10^3/uL (0.0-1.0); MONOCYTES % (AUTO) 7 % (0-12); NEUTROPHILS # (AUTO) 4.9 10^3/uL (1.8-7.8); NEUTROPHILS % (AUTO) 60 % (42-75); PLATELET COUNT 218 10^3/uL (130-400); WHITE BLOOD COUNT 8.1 10^3/uL (4.3-11.0)
[2022-06-08 21:26] LABS: ALBUMIN 4.1 GM/DL (3.2-4.5); BILIRUBIN,TOTAL 0.4 MG/DL (0.1-1.0); CREATININE SERUM 0.59 MG/DL (0.60-1.30); POTASSIUM 3.3 MMOL/L (3.6-5.0); TOTAL PROTEIN 7.4 GM/DL (6.4-8.2)
[2022-06-08] MEDS ORDERED: SUCR1TAB PO (21:39)
[2022-06-08] MEDS ORDERED: ONDA4TAB11 SL (21:39)
--- NOTE | 2022-06-08 21:39 | ED GI ---
General Chief Complaint: Abdominal/GI Problems Stated Complaint: VOMITING BLOOD Nursing Triage Note: PT AMB TO FT 3 WITH CC OF "VOMITING BLOOD" SINCE 1630 TODAY. PT STATES HE HAS BEEN WAKING UP WITH BLOOD ON HIS PILLOW FOR THE LAST MONTH. PT DENIES NAUSEA AND ABD PAIN AT THIS TIME. Source of Information: Patient Exam Limitations: No Limitations (SHILO DALE APRN) History of Present Illness Date Seen by Provider: Jun 08, 2022 Time Seen by Provider: 20:35 Initial Comments Patient is a 31-year-old male who presents to the emergency department for eval uation of 3 episodes of vomiting bright red blood today. Patient states he has some nausea at this time but denies any pain. States he was able to tolerate food earlier today without issue. Denies any bright red or dark/black stools. Denies any history of GI bleeding. Denies any coagulopathies or bleeding diatheses. Denies any recent epigastric pain. Denies any frequent use of NSAIDs in the recent past. (SHILO DALE APRN) Allergies and Home Medications Allergies Coded Allergies: No Known Drug Allergies (Unverified , 01/12/09) Patient Home Medication List Home Medication List Reviewed: Yes (SHILO DALE APRN) Albuterol Sulfate (Ventolin Hfa) 18 Gm Hfa.aer.ad, 18 GM IH Q4H PRN for WHEEZING Prescribed by: JACQUELYN HILLS on 02/03/18 1155 Ondansetron (Ondansetron Odt) 4 Mg Tab.rapdis, 4-8 MG PO Q6H PRN for NAUSEA/VOMITING Prescribed by: CADEN BLAKELY on 08/01/21 2226 Ondansetron (Ondansetron Odt) 4 Mg Tab.rapdis, 4-8 MG PO Q6H PRN for NAUSEA/VOMITING Prescribed by: CADEN BLAKELY on 02/03/22 210 Ondansetron (Ondansetron Odt) 4 Mg Tab.rapdis, 4 MG SL Q4H PRN for NAUSEA/VOMITING Prescribed by: Shilo Dale on 06/08/222138 Paliperidone Palmitate (Invega Sustenna) 156 Mg/1 Ml Syringe, 156 MG IM MONTHLY, (Reported) Entered as Reported by: JERROD BLAKELY on 02/02/18 1013 Sucralfate (Sucralfate) 1 Gram Tablet, 1 GM PO ACHS Prescribed by: Shilo Dale on 06/08/222138 Review of Systems Review of Systems Constitutional: no symptoms reported EENTM: No Symptoms Reported Respiratory: No Symptoms Reported Cardiovascular: No Symptoms Reported Gastrointestinal: See HPI, Nausea, Vomiting Genitourinary: No Symptoms Reported Musculoskeletal: no symptoms reported Skin: no symptoms reported Psychiatric/Neurological: No Symptoms Reported Endocrine: No Symptoms Reported Hematologic/Lymphatic: No Symptoms Reported (SHILO DALE APRN) Past Wxoptrk-Bscvhj-Ppcqao Hx Patient Social History Tobacco Use?: Yes Tobacco type used: Cigarettes Smoking Status: Current Everyday Smoker Substance use?: Yes Substance type: Methamphetamine, Marijuana Additional substance use comme: FORMER Alcohol Use?: No Pt feels they are or have been: No (SHILO DALE APRN) Immunizations Up To Date Tetanus Booster (TDap): Less than 5yrs PED Vaccines UTD: Yes First/Initial COVID19 Vaccinat: march 2021 Second COVID19 Vaccination [place]: march 2021 Third COVID19 Vaccination Date: march 2021 (SHILO DALE APRN) Seasonal Allergies Seasonal Allergies: Yes (SHILO DALE APRN) Past Medical History Surgery/Hospitalization HX: APPY Surgeries: Yes (DENTAL, RT HAND) Appendectomy, Orthopedic Respiratory: Yes Asthma Currently Using CPAP: No Currently Using BIPAP: No Cardiac: No Neurological: No Genitourinary: No Gastrointestinal: Yes Gastroesophageal Reflux Musculoskeletal: Yes (chronic back and neck pain) Chronic Back Pain Endocrine: No Cancer: No Psychosocial: Yes (bipolar 2, ADHD, impulse control disorder) ADD/ADHD, Anxiety, Suicide Attempts, Bipolar, Depression Integumentary: No Blood Disorders: No Adverse Reaction/Blood Tranf: No (SHILO DALE APRN) Family Medical History Prostate cancer Grandfather Thyroid disease 19 MOTHER Physical Exam Vital Signs Vital Signs - First Documented 06/08/22 20:35 Temp 37.2 Pulse 81 Resp 18 B/P (MAP) 131/84 (100) Pulse Ox 100 O2 Delivery Room Air (RAJEEV SIMPSON MD) Vital Signs Capillary Refill : Less Than 3 Seconds (SHILO DALE APRN) Height/Weight/BMI Height: 6'1.00" Weight: 278lbs. 0.0oz. 126.376629tu; 39.00 BMI Method:Stated General Appearance: WD/WN, no apparent distress HEENT: PERRL/EOMI, normal ENT inspection, TMs normal, pharynx normal Neck: non-tender, full range of motion, supple, normal inspection Respiratory: chest non-tender, lungs clear, normal breath sounds, no respiratory distress, no accessory muscle use Cardiovascular: regular rate, rhythm Gastrointestinal: normal bowel sounds, non tender, soft Extremities: normal range of motion, non-tender, normal inspection, no pedal edema, no calf tenderness Neurologic/Psychiatric: no motor/sensory deficits, alert, normal mood/affect, oriented x 3 Skin: normal color, warm/dry (SHILO DALE APRN) Procedures/Interventions Suture Size: 5-0 (SHILO DALE APRN) Progress/Results/Core Measures Results/Orders Lab Results Laboratory Tests Test 06/08/22 20:55 Range/Units White Blood Count 8.1 4.3-11.0 10^3/uL Red Blood Count 5.18 4.30-5.52 10^6/uL Hemoglobin 14.0 13.3-17.7 g/dL Hematocrit 43 40-54 % Mean Corpuscular Volume 82 80-99 fL Mean Corpuscular Hemoglobin 27 25-34 pg Mean Corpuscular Hemoglobin Concent 33 32-36 g/dL Red Cell Distribution Width 12.2 10.0-14.5 % Platelet Count 218 130-400 10^3/uL Mean Platelet Volume 10.3 9.0-12.2 fL Immature Granulocyte % (Auto) 0 % Neutrophils (%) (Auto) 60 42-75 % Lymphocytes (%) (Auto) 31 12-44 % Monocytes (%) (Auto) 7 0-12 % Eosinophils (%) (Auto) 2 0-10 % Basophils (%) (Auto) 0 0-10 % Neutrophils # (Auto) 4.9 1.8-7.8 10^3/uL Lymphocytes # (Auto) 2.5 1.0-4.0 10^3/uL Monocytes # (Auto) 0.6 0.0-1.0 10^3/uL Eosinophils # (Auto) 0.1 0.0-0.3 10^3/uL Basophils # (Auto) 0.0 0.0-0.1 10^3/uL Immature Granulocyte # (Auto) 0.0 0.0-0.1 10^3/uL Sodium Level 139 135-145 MMOL/L Potassium Level 3.3 L 3.6-5.0 MMOL/L Chloride Level 102 98-107 MMOL/L Carbon Dioxide Level 26 21-32 MMOL/L Anion Gap 11 5-14 MMOL/L Blood Urea Nitrogen 7 7-18 MG/DL Creatinine 0.59 L 0.60-1.30 MG/DL Estimat Glomerular Filtration Rate 135 BUN/Creatinine Ratio 12 Glucose Level 73 70-105 MG/DL Calcium Level 8.0 L 8.5-10.1 MG/DL Corrected Calcium 7.9 L 8.5-10.1 MG/DL Total Bilirubin 0.4 0.1-1.0 MG/DL Aspartate Amino Transf (AST/SGOT) 30 5-34 U/L Alanine Aminotransferase (ALT/SGPT) 42 0-55 U/L Alkaline Phosphatase 48 40-136 U/L Total Protein 7.4 6.4-8.2 GM/DL Albumin 4.1 3.2-4.5 GM/DL (RAJEEV SIMPSON MD) Vital Signs/I&O 06/08/22 06/08/22 20:35 22:11 Temp 37.2 Pulse 81 80 Resp 18 18 B/P (MAP) 131/84 (100) 128/88 Pulse Ox 100 100 O2 Delivery Room Air Room Air (RAJEEV SIMPSON MD) Blood Pressure Mean: 100 Progress Progress Note : Progress Note Patient is nontoxic and well-hydrated on exam. Abdominal exam is reassuring without focal provocation of pain or rigidity/distention. Specifically there is no epigastric pain on palpation. Vital signs are reassuring. Patient appears well-hydrated. Patient ambulatory to the exam room without issue. Orders placed for CBC, CMP, and ODT Zofran. CBC is unremarkable. Specifically there is no anemia or thrombocytopenia. CMP reveals no significant metabolic derangements. Glascow Blatchford score is 0 making significant upper GI bleeding necessitating urgent intervention very unlikely. Ronna-Yadav tears are a possible etiology. I discussed with patient the need for close follow-up with PCP. Patient will be placed on a short course of Carafate. Return precautions for urgent symptomology discussed. Patient verbalized understanding. (SHILO DALE APRN) Departure Impression Primary Impression: Hematemesis Qualified Codes: K92.0 - Hematemesis Disposition: 01 HOME, SELF-CARE Condition: Stable Departure-Patient Inst. Decision time for Depature: 21:35 (SHILO DALE APRN) [facility]errals: [facility] [place] Primary Care Physician MAGALI CASIANO MD Patient Instructions: Gastrointestinal Bleeding (DC) Scripts Sucralfate (Sucralfate) 1 Gram Tablet 1 GM PO ACHS for 7 Days, #28 TAB 0 Refills Prov: SHILO DALE APRN 06/08/22 Ondansetron (Ondansetron Odt) 4 Mg Tab.rapdis 4 MG SL Q4H PRN for NAUSEA/VOMITING for 3 Days, #18 TAB 0 Refills Prov: HSILO DALE APRN 06/08/22 ATTENDING PHYSICIAN NOTE: I was physically present as attending physician in the emergency department during the care of this patient, but I was not directly involved in the decision making or delivery of care for this patient. (RAJEEV SIMPSON MD) SHILO DALE APRN Jun 08, 2022 21:39 RAJEEV SIMPSON MD Jun 09, 2022 07:52
[2022-06-08 22:11] VITALS: BP 128/88
== END 2022-06-08 22:11 | disposition home or self-care (01) ==
LOC: EDUNIT# 20:12 → ER 20:17
DX: K92.0 Hematemesis (principal); F17.210 Nicotine dependence, cigarettes, uncomplicated
CPT/HCPCS: 36415; 80053; 85025

== ENCOUNTER 2022-10-07 20:04 | Emergency (ER) | payer SELFPAY ==
[~2022-10-07] VITALS: Ht 185.5 cm; Wt 142.9 kg
[~2022-10-07 20:04] MED LIST changes: +ONDA4TAB11 SL; +SUCR1TAB PO
--- NOTE | 2022-10-07 20:31 | ED Integumentary General ---
General Chief Complaint: Skin/Wound Problems Stated Complaint: SORES ON LEGS Nursing Triage Note: PT AMBULATE TO TRIAGE WITHOUT DIFFICULTY WITH C/O SORES TO THE INSIDE OF BILAT CALVES X1.5 WEEKS. PT REPORTS HIS WORK BOOTS HAVE BEEN RUBBING THE INSIDE OF HIS CALVES CREATING SORES. PT STATES HE HAS BEEN USING NEOSPORIN ON SORES. Source: patient Exam Limitations: no limitations History of Present Illness Date Seen by Provider: Oct 07, 2022 Time Seen by Provider: 20:25 Initial Comments PT ARRIVES VIA POV FROM HOME C/O SORES TO BOTH LOWER LEGS X 1 1/2 WEEKS STATES HE GOT NEW LEATHER BOOTS AND THE TOPS OF THEM HAVE BEEN RUBBING THE INSIDE OF BOTH LOWER LEGS AND HAVE WORN BLISTERS THAT HAVE RUPTURED. SYMPTOMS ARE NO DIFFERENT TODAY HAS NOT SOUGHT CARE UNTIL TODAY HAS BEEN USING NEOSPORIN ON THEM. NO HISTORY OF SIMILAR LAST TETANUS 2013. NO CHRONIC ILLNESSES, NO DAILY MEDICATIONS [place] [facility] [place]ies and Home Medications Allergies Coded Allergies: No Known Drug Allergies (Unverified , 01/12/09) Patient Home Medication List Home Medication List Reviewed: Yes Albuterol Sulfate (Ventolin Hfa) 18 Gm Hfa.aer.ad, 18 GM IH Q4H PRN for WHEEZING Prescribed by: JACQUELYN HILLS on 02/03/18 115 Cephalexin (Cephalexin) 500 Mg Tablet, 500 MG PO QID Prescribed by: RYANNE ROSALES on 10/07/222032 Mupirocin (Mupirocin) 2 % Oint...g., 22 GM TP BID Prescribed by: RYANNE ROSALES on 10/07/222032 Ondansetron (Ondansetron Odt) 4 Mg Tab.rapdis, 4-8 MG PO Q6H PRN for NAUSEA/VOMITING Prescribed by: CADEN BLAKELY on 08/01/212225 Ondansetron (Ondansetron Odt) 4 Mg Tab.rapdis, 4-8 MG PO Q6H PRN for NAUSEA/ VOMITING Prescribed by: CADEN BLAKELY on 02/03/222102 Ondansetron (Ondansetron Odt) 4 Mg Tab.rapdis, 4 MG SL Q4H PRN for NAUSEA/VOMITING Prescribed by: Shilo Dale on 06/08/222138 Paliperidone Palmitate (Invega Sustenna) 156 Mg/1 Ml Syringe, 156 MG IM MONTHLY, (Reported) Entered as Reported by: JERROD BLAKELY on 02/02/18 1013 Sucralfate (Sucralfate) 1 Gram Tablet, 1 GM PO ACHS Prescribed by: Shilo Dale on 06/08/222138 Review of Systems Review of Systems Constitutional: no symptoms reported Musculoskeletal: see HPI Skin: see HPI Psychiatric/Neurological: No Symptoms Reported Past Mbbytus-Wjshmn-Faioyd Hx Patient Social History Tobacco Use?: Yes Tobacco type used: Cigarettes Smoking Status: Heavy Tobacco Smoker Smokeless Tobacco Frequency: Never a User Use of E-Cig and/or Vaping dev: No Substance use?: No Alcohol Use?: No Pt feels they are or have been: No Immunizations Up To Date Tetanus Booster (TDap): Less than 5yrs PED Vaccines UTD: Yes First/Initial COVID19 Vaccinat: march 2021 Second COVID19 Vaccination [place]: march 2021 Third COVID19 Vaccination Date: march 2021 Seasonal Allergies Seasonal Allergies: Yes Past Medical History Surgery/Hospitalization HX: APPY Surgeries: Yes (DENTAL, RT HAND-3RD METACARPAL PINNED; APPY 2008) Appendectomy, Orthopedic Respiratory: Yes Asthma Currently Using CPAP: No Currently Using BIPAP: No Cardiac: No Neurological: No Genitourinary: No Gastrointestinal: Yes Gastroesophageal Reflux Musculoskeletal: Yes (chronic back and neck pain;R HAND 3RD METACARPAL PINNED) Chronic Back Pain, Fractures Endocrine: No HEENT: No Cancer: No Psychosocial: Yes (bipolar 2, ADHD, impulse control disorder) ADD/ADHD, Anxiety, Suicide Attempts, Bipolar, Depression Integumentary: No Blood Disorders: No Adverse Reaction/Blood Tranf: No Family Medical History Prostate cancer Grandfather Thyroid disease 19 MOTHER Physical Exam Vital Signs Vital Signs - First Documented 10/07/22 20:14 Temp 37.0 Pulse 90 Resp 18 B/P (MAP) 123/85 (98) O2 Delivery Room Air Capillary Refill : Less Than 3 Seconds General Appearance: WD/WN, no apparent distress Extremities: normal capillary refill, other (BILATERAL LOWER LEGS / MEDIAL ASPECT WITH SYMMETRICAL OPEN SORES--CONSISTENT WITH REPORTED HISTORY OF RUPTURED BLISTERS FROM BOOTS RUBBING. NO DRAINAGE. MILD LOCAL ERYTHEMA AND TENDERNESS. NO FLUCTUANCE. NO STREAKS. ) Neurologic/Psychiatric: latent fingerprint examiner II-XII nml as tested, no motor/sensory deficits, alert, normal mood/affect, oriented x 3 Skin: normal color, warm/dry, other ( ABOVE) Procedures/Interventions Suture Size: 5-0 Progress/Results/Core Measures Results/Orders My Orders Orders - RYANNE ROSALES DO Dipht,Pertuss(Acell),Tet Adult (Boostrix (10/07/22 20:45) Rx-Cephalexin Capsule (Rx-Keflex Capsule (10/07/22 20:34) Vital Signs/I&O 10/07/22 20:14 Temp 37.0 Pulse 90 Resp 18 B/P (MAP) 123/85 (98) O2 Delivery Room Air Blood Pressure Mean: 98 Progress Progress Note : Progress Note DPT VACCINATION GIVEN DISCUSSED ANTICIPATED COURSE, SYMPTOMATIC TREATMENT, WOUND CARE, MEDICATIONS, NEED FOR FOLLOW UP AND RETURN PRECAUTIONS. Departure Impression Primary Impression: INFECTED FRICTION BLISTERS OF BILATERAL LOWER LEGS Additional Impression: Abwvctwxtk-xxznsftkf-yxzxvbp (DPT) vaccination administered at current visit Disposition: 01 HOME, SELF-CARE Condition: Stable Departure-Patient Inst. Decision time for Depature: 20:30 Referrals: [facility] (PCP/Family) Primary Care Physician Patient Instructions: Blisters, Wound Care (DC) Add. Discharge Instructions: CLEAN WOUNDS TWICE A DAY WITH ANTIBACTERIAL SOAP AND WATER, APPLY PRESCRIPTION ANTIBIOTIC OINTMENT AND FRESH DRESSING TWICE A DAY TYLENOL AND MOTRIN NEEDED FOR PAIN FOLLOW UP WITH [facility] IN 3-4 DAYS FOR RECHECK All discharge instructions reviewed with patient and/or family. Voiced understanding. Scripts Cephalexin (Cephalexin) 500 Mg Tablet 500 MG PO QID, #20 TAB 0 Refills Prov: RYANNE ROSALES DO 10/07/22 Mupirocin (Mupirocin) 2 % Oint...g. 22 GM TP BID, #1 TUBE Prov: RYANNE ROSALES DO 10/07/22 RYANNE ROSALES DO Oct 07, 2022 20:31
[2022-10-07] MEDS ORDERED: CEPH500T PO (20:33)
[2022-10-07] MEDS ORDERED: MUPI22OI2 TP (20:33)
[2022-10-07] MEDS ORDERED: RX-CEPHALEXIN (KEFLEX) 250 MG CAP PPK#4 PO STA (20:34)
[2022-10-07 20:45] VITALS: BP 137/86
[2022-10-07] MEDS ORDERED: TETANUS,DIPTH,PERTUSS P/F (BOOSTRIX) 0.5 ML VIAL IM ONE (20:45)
== END 2022-10-07 20:45 | disposition home or self-care (01) ==
LOC: EDUNIT# 20:04 → ER 20:07
DX: S80.821A Blister (nonthermal), right lower leg, initial encounter (principal); S80.822A Blister (nonthermal), left lower leg, initial encounter; L08.9 Local infection of the skin and subcutaneous tissue, unspecified; F17.210 Nicotine dependence, cigarettes, uncomplicated; Z23 Encounter for immunization; Z28.311 Partially vaccinated for COVID-19; X58.XXXA Exposure to other specified factors, initial encounter
CPT/HCPCS: 90715; 99284

== ENCOUNTER 2022-11-09 15:42 | Emergency (ER) | payer SELFPAY ==
[~2022-11-09] VITALS: Ht 185 cm; Wt 139.7 kg
[~2022-11-09 15:42] MED LIST changes: +CEPH500T PO; +MUPI22OI2 TP
[2022-11-09] MEDS ORDERED: NS IV 1000 ML 1,000 ML IV STA (17:00)
[2022-11-09] MEDS ORDERED: PANTOPRAZOLE 40 MG (PROTONIX) VIAL IV ONE (17:00)
--- NOTE | 2022-11-09 17:06 | ED Abdominal Pain ---
General Chief Complaint: Abdominal/GI Problems Stated Complaint: VOMITING/DIARRHEA/BLOOD IN STOOL Nursing Triage Note: PT AMB TO TRIAGE WITH C/O BLOODY STILL TODAY AND VOMITTING SINCE WEDNESDAY. PT DENIES VOMITTING TODAY. 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 Pain started last Wednesday. Described as crampy and constant without radiation. Patient states he vomited 4-5 times on Wednesday. Reports vomiting over the weekend but much less. Reports at least 1 episode of loose stool daily. Noted bright red blood in stool today. Denies of any rectal pain. Patient states he has had some heartburn. Took omeprazole today with some improvement. States he has had decreased appetite. No family history inflammatory bowel disease. Normal urination. Decreased appetite. Reports pain 6 out of 10 at this time. Denies current chest pain, shortness of breath, cough, sore throat, visual changes, headache, dizziness. Refused rectal exam. ([place] [place]) Allergies and Home Medications Allergies Coded Allergies: No Known Drug Allergies (Unverified , 01/12/09) Patient Home Medication List Home Medication List Reviewed: Yes ([place] [place]) Albuterol Sulfate (Ventolin Hfa) 18 Gm Hfa.aer.ad, 18 GM IH Q4H PRN for WHEEZING Prescribed by: JACQUELYN HILLS on 02/03/18 1155 Cephalexin (Cephalexin) 500 Mg Tablet, 500 MG PO QID Prescribed by: RYANNE ROSALES on 10/07/222032 Mupirocin (Mupirocin) 2 % Oint...g., 22 GM TP BID Prescribed by: RYANNE ROSALES on 10/07/222032 Ondansetron (Ondansetron Odt) 4 Mg Tab.rapdis, 4-8 MG PO Q6H PRN for NAUSEA/VOMITING Prescribed by: CADEN BLAKELY on 08/01/212225 Ondansetron (Ondansetron Odt) 4 Mg Tab.rapdis, 4-8 MG PO Q6H PRN for NAUSEA/VOMITING Prescribed by: CADEN BLAKELY on 02/03/222102 Ondansetron (Ondansetron Odt) 4 Mg Tab.rapdis, 4 MG SL Q4H PRN for NAUSEA/VOMITING Prescribed by: Shilo Dale on 06/08/222138 Ondansetron (Ondansetron Odt) 4 Mg Tab.rapdis, 4 MG SL Q4H PRN for NAUSEA/VOMITING Prescribed by: QUINTEN DICKSON on 11/09/221757 Paliperidone Palmitate (Invega Sustenna) 156 Mg/1 Ml Syringe, 156 MG IM MONTHLY, (Reported) Entered as Reported by: JERROD BLAKELY on 02/02/18 101 Pantoprazole Sodium (Protonix) 40 Mg Tablet.dr, 40 MG PO DAILY Prescribed by: QUINTEN DICKSON on 11/09/221757 Sucralfate (Sucralfate) 1 Gram Tablet, 1 GM PO ACHS Prescribed by: Shilo Dale on 06/08/222138 Review of Systems Review of Systems Constitutional: No chills, No diaphoresis, No malaise, No weakness EENTM: No Eye Pain Respiratory: Denies Cough, Denies Orthopnea Cardiovascular: Denies Chest Pain Gastrointestinal: Abdominal Pain, Diarrhea, Nausea, Rectal Bleeding, Vomiting Genitourinary: Denies Burning, Denies Discharge, Denies Drainage, Denies Frequency Musculoskeletal: No back pain, No gout, No joint pain Skin: No change in color, No change in hair/nails ([place]) All Other Systems Reviewed Negative Unless Noted: Yes ([place] [place]) Past Ahhgyxz-Tslijn-Jkknhv Hx Patient Social History Tobacco Use?: Yes Tobacco type used: Cigarettes Substance use?: No Alcohol Use?: No Pt feels they are or have been: No ([place]) Immunizations Up To Date Tetanus Booster (TDap): Less than 5yrs PED Vaccines UTD: Yes First/Initial COVID19 Vaccinat: march 2021 Second COVID19 Vaccination [place]: march 2021 Third COVID19 Vaccination Date: march 2021 ([place] [place]) Seasonal Allergies Seasonal Allergies: Yes ([place]) Past Medical History Surgery/Hospitalization HX: APPY, PIN IN THIRD FINGER R HAND Surgeries: Yes (DENTAL, RT HAND-3RD METACARPAL PINNED; APPY 2008) Appendectomy, Orthopedic Respiratory: Yes Asthma Currently Using CPAP: No Currently Using BIPAP: No Cardiac: No Neurological: No Genitourinary: No Gastrointestinal: Yes Gastroesophageal Reflux Musculoskeletal: Yes (chronic back and neck pain;R HAND 3RD METACARPAL PINNED) Chronic Back Pain, Fractures Endocrine: No HEENT: No Cancer: No Psychosocial: Yes (bipolar 2, ADHD, impulse control disorder) ADD/ADHD, Anxiety, Suicide Attempts, Bipolar, Depression Integumentary: No Blood Disorders: No Adverse Reaction/Blood Tranf: No ([place]) Family Medical History Prostate cancer Grandfather Thyroid disease 19 MOTHER Physical Exam Vital Signs Vital Signs - First Documented 11/09/22 16:06 Temp 36.9 Pulse 84 Resp 14 B/P (MAP) 136/81 (99) Pulse Ox 96 O2 Delivery Room Air (RAJEEV SIMPSON MD) Vital Signs Capillary Refill : ([place]) Height/Weight/BMI Height: 6'1.00" Weight: 278lbs. 0.0oz. 126.112802yr; 40.00 BMI Method:Stated General Appearance: WD/WN, no apparent distress HEENT: PERRL/EOMI, normal ENT inspection, TMs normal, pharynx normal Neck: non-tender, full range of motion, supple Respiratory: chest non-tender, lungs clear, normal breath sounds, no respiratory distress, no accessory muscle use Cardiovascular: regular rate, rhythm, no edema, no gallop, no JVD Gastrointestinal: normal bowel sounds, non tender, no organomegaly, tenderness (Epigastric tenderness. 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, no motor/sensory deficits, alert, normal mood/affect, oriented x 3 Skin: normal color, warm/dry ([place]) Procedures/Interventions Suture Size: 5-0 ([place] [place]) Progress/Results/Core Measures Results/Orders Lab Results Laboratory Tests Test 11/09/22 16:55 11/09/22 17:30 Range/Units White Blood Count 7.8 4.3-11.0 10^3/uL Red Blood Count 5.47 4.30-5.52 10^6/uL Hemoglobin 14.9 13.3-17.7 g/dL Hematocrit 45 40-54 % Mean Corpuscular Volume 82 80-99 fL Mean Corpuscular Hemoglobin 27 25-34 pg Mean Corpuscular Hemoglobin Concent 33 32-36 g/dL Red Cell Distribution Width 12.5 10.0-14.5 % Platelet Count 218 130-400 10^3/uL Mean Platelet Volume 10.6 9.0-12.2 fL Immature Granulocyte % (Auto) 0 % Neutrophils (%) (Auto) 57 42-75 % Lymphocytes (%) (Auto) 32 12-44 % Monocytes (%) (Auto) 9 0-12 % Eosinophils (%) (Auto) 2 0-10 % Basophils (%) (Auto) 1 0-10 % Neutrophils # (Auto) 4.4 1.8-7.8 10^3/uL Lymphocytes # (Auto) 2.5 1.0-4.0 10^3/uL Monocytes # (Auto) 0.7 0.0-1.0 10^3/uL Eosinophils # (Auto) 0.2 0.0-0.3 10^3/uL Basophils # (Auto) 0.0 0.0-0.1 10^3/uL Immature Granulocyte # (Auto) 0.0 0.0-0.1 10^3/uL Sodium Level 139 135-145 MMOL/L Potassium Level 3.8 3.6-5.0 MMOL/L Chloride Level 107 98-107 MMOL/L Carbon Dioxide Level 23 21-32 MMOL/L Anion Gap 9 5-14 MMOL/L Blood Urea Nitrogen 7 7-18 MG/DL Creatinine 0.81 0.60-1.30 MG/DL Estimat Glomerular Filtration Rate 122 BUN/Creatinine Ratio 9 Glucose Level 121 H 70-105 MG/DL Calcium Level 9.3 8.5-10.1 MG/DL Corrected Calcium 9.1 8.5-10.1 MG/DL Total Bilirubin 0.3 0.1-1.0 MG/DL Aspartate Amino Transf (AST/SGOT) 28 5-34 U/L Alanine Aminotransferase (ALT/SGPT) 56 H 0-55 U/L Alkaline Phosphatase 55 40-136 U/L Total Protein 7.4 6.4-8.2 GM/DL Albumin 4.2 3.2-4.5 GM/DL Lipase 54 8-78 U/L Serum Alcohol < 10 <10 MG/DL Urine Color YELLOW Urine Clarity CLEAR Urine pH 6.5 5-9 Urine Specific [place] 1.010 L 1.016-1.022 Urine Protein NEGATIVE NEGATIVE Urine Glucose (UA) NEGATIVE NEGATIVE Urine Ketones NEGATIVE NEGATIVE Urine Nitrite NEGATIVE NEGATIVE Urine Bilirubin NEGATIVE NEGATIVE Urine Urobilinogen 0.2 < = 1.0 MG/DL Urine Leukocyte Esterase NEGATIVE NEGATIVE Urine RBC (Auto) NEGATIVE NEGATIVE Urine RBC NONE /HPF Urine WBC NONE /HPF Urine Squamous Epithelial Cells NONE /HPF Urine Crystals NONE /LPF Urine Bacteria NEGATIVE /HPF Urine Casts NONE /LPF Urine Mucus NEGATIVE /LPF Urine Culture Indicated NO Urine Opiates Screen NEGATIVE NEGATIVE Urine Oxycodone Screen NEGATIVE NEGATIVE Urine Methadone Screen NEGATIVE NEGATIVE Urine Propoxyphene Screen NEGATIVE NEGATIVE Urine Barbiturates Screen NEGATIVE NEGATIVE Ur Tricyclic Antidepressants Screen NEGATIVE NEGATIVE Urine Phencyclidine Screen NEGATIVE NEGATIVE Urine Amphetamines Screen NEGATIVE NEGATIVE Urine Methamphetamines Screen NEGATIVE NEGATIVE Urine Benzodiazepines Screen NEGATIVE NEGATIVE Urine Cocaine Screen NEGATIVE NEGATIVE Urine Cannabinoids Screen NEGATIVE NEGATIVE (RAJEEV SIMPSON MD) Vital Signs/I&O 11/09/22 11/09/22 16:06 18:17 Temp 36.9 Pulse 84 79 Resp 14 B/P (MAP) 136/81 (99) 131/83 Pulse Ox 96 99 O2 Delivery Room Air Room Air (RAJEEV SIMPSON MD) Blood Pressure Mean: 99 Departure Communication (PCP) DigitalReviewed previous ER visits, H&P, lab testing. Differential diagnosis, gastritis, pancreatitis, colitis, esophagitis. Patient is a 32-year-old male presents to ED with upper abdominal pain vomiting with loose stool. Concern that he had a episode of bright red blood in his stool this afternoon. This was one episode. Upper abdominal discomfort since wednesday. History of appendectomy. Vomiting started on Wednesday but that is improving. Vital signs stable. Patient does not appear in acute distress. Due to location of pain and symptoms CBC, CMP, lipase, urinalysis with drug screen was ordered. patient started on a liter of fluid. Patient refused rectal exam. CBC showed normal white blood count, hemoglobin and platelets. Chemistry was grossly unremarkable. Normal lipase. Patient received Toradol and Protonix 40 mg here in the ED. Improvement of pain. CT abdomen and pelvis was ordered which was negative for acute abnormality. Patient does not appear in acute distress. Discussed all results with patient. Episode of red blood in the stool may be secondary to internal hemorrhoid. Denies of any rectal pain, anal pain. Refused digital exam. Patient does not appear in acute distress. Discussed clear liquid diet for the next 2 or 3 days. Consider taking Protonix for gastritis. Will discharge with Zofran as needed. Avoid any fatty foods or spicy foods. If any worsening pain, fever, vomiting, unable to eat or drink to return back to ED. Follow-up with your PCP in 2 days for reevaluation. If any worsening symptoms return back to ED. Discussed Tums and/or Mylanta for epigastric pain. Provided general surgery outpatient follow-up. ([place]) Impression Primary Impression: Abdominal pain Disposition: 01 HOME, SELF-CARE Condition: Stable Departure-Patient Inst. Decision time for Depature: 17:58 ([place]) Referrals: [facility] (PCP/Family) Primary Care Physician MAGALI CASIANO MD Patient Instructions: Abdominal Pain, Adult ED Add. Discharge Instructions: Recommend clear liquid diet for the next 2 or 3 days. Take Protonix for abdominal pain. Zofran for nausea. If any worsening symptoms to return back to ED. Follow-up your PCP in 2 to 3 days for reevaluation. All discharge instructions reviewed with patient and/or family. Voiced understanding. Scripts Ondansetron (Ondansetron Odt) 4 Mg Tab.rapdis 4 MG SL Q4H PRN for NAUSEA/VOMITING, #8 TAB Prov: [place] 11/09/22 Pantoprazole Sodium (Protonix) 40 Mg Tablet.dr 40 MG PO DAILY, #20 TAB Prov: [place] 11/09/22 Work/School Note: Work Release Form Date Seen in the Emergency Department: Nov 09, 2022 Return to Work: Nov 11, 2022 ATTENDING PHYSICIAN NOTE: I was physically present as attending physician in the emergency department during the care of this patient, but I was not directly involved in the decision making or delivery of care for this patient. (RAJEEV SIMPSON MD) [place] Nov 09, 2022 17:06 RAJEEV SIMPSON MD Nov 11, 2022 04:40
[2022-11-09 17:13] LABS: BASOPHILS % (AUTO) 1 % (0-10); EOSINOPHILS # (AUTO) 0.2 10^3/uL (0.0-0.3); EOSINOPHILS % (AUTO) 2 % (0-10); HEMATOCRIT 45 % (40-54); HEMOGLOBIN 14.9 g/dL (13.3-17.7); LYMPHOCYTES # (AUTO) 2.5 10^3/uL (1.0-4.0); LYMPHOCYTES % (AUTO) 32 % (12-44); MEAN CORPUSCULAR HEMOGLOBIN 27 pg (25-34); MEAN CORPUSCULAR HGB CONC 33 g/dL (32-36); MEAN CORPUSCULAR VOLUME 82 fL (80-99); MEAN PLATELET VOLUME 10.6 fL (9.0-12.2); MONOCYTES # (AUTO) 0.7 10^3/uL (0.0-1.0); MONOCYTES % (AUTO) 9 % (0-12); NEUTROPHILS # (AUTO) 4.4 10^3/uL (1.8-7.8); NEUTROPHILS % (AUTO) 57 % (42-75); PLATELET COUNT 218 10^3/uL (130-400); WHITE BLOOD COUNT 7.8 10^3/uL (4.3-11.0)
[2022-11-09] MEDS ORDERED: NS 100 ML (IVPB) BAG IV ONE (17:15)
[2022-11-09] MEDS ORDERED: IOHEXOL 350 MG/ML 100 ML (OMNIPAQUE 350) VIAL IV ONE (17:15)
[2022-11-09] MEDS ORDERED: HOLD METFORMIN - RECEIVED CONTRAST 20 ML VIAL IV SCH (17:15)
[2022-11-09 17:25] LABS: ALBUMIN 4.2 GM/DL (3.2-4.5); CHLORIDE 107 MMOL/L (98-107); POTASSIUM 3.8 MMOL/L (3.6-5.0); SODIUM 139 MMOL/L (135-145)
[2022-11-09 17:26] LABS: CALCIUM 9.3 MG/DL (8.5-10.1)
[2022-11-09 17:28] LABS: GLUCOSE 121 MG/DL (70-105); TOTAL PROTEIN 7.4 GM/DL (6.4-8.2)
[2022-11-09 17:29] LABS: BILIRUBIN,TOTAL 0.3 MG/DL (0.1-1.0); CARBON DIOXIDE 23 MMOL/L (21-32)
[2022-11-09 17:31] LABS: ALKALINE PHOSPHATASE 55 U/L (40-136); CREATININE SERUM 0.81 MG/DL (0.60-1.30); GFR ESTIMATED 122
[2022-11-09 17:32] LABS: BUN/CREATININE RATIO 9
--- NOTE | 2022-11-09 17:32 | Diagnostic Imaging Report ---
PROCEDURE: CT abdomen and pelvis with contrast. TECHNIQUE: Multiple contiguous axial images were obtained through the abdomen and pelvis after administration of intravenous contrast. Auto Exposure Controls were utilized during the CT exam to meet ALARA standards for radiation dose reduction. All CT scans use one or more of the following dose optimizing techniques: Automated exposure control, MA and/or KvP adjustment based on patient size and exam type or iterative reconstruction. INDICATION: Upper abdominal pain. Bloody stools and vomiting. COMPARISON: 04/09/2016. FINDINGS: Lung bases demonstrate no findings of pneumonia or edema. There is no pleural or pericardial effusion. The liver demonstrates no focal intrahepatic abnormality. The gallbladder is nondistended without radiodense gallstones. There is no biliary dilatation. The hepatic and portal veins are patent. The pancreas demonstrates no adjacent fat stranding or fluid. The spleen is normal in size. There is no adrenal mass. The kidneys enhance normally and are nonobstructed. Stomach is nondistended without evidence of gastric wall thickening. There are no findings of abnormal small or large bowel dilation present to suggest bowel obstruction. Patient appears to likely be status post a prior appendectomy. There is moderate stool within the proximal colon. The distal colon is decompressed. There is no abnormal colonic thickening or adjacent pericolonic fat stranding. There are no findings of free air, free fluid, or abscess. There is no adenopathy. The urinary bladder is unremarkable. The aorta is normal in caliber. There is no acute or suspicious osseous abnormality. IMPRESSION: 1. No CT evidence of an acute inflammatory or obstructive process within the abdomen or pelvis. Dictated by: Dictated on workstation # [id number]
[2022-11-09 17:34] LABS: ALANINE AMINOTRANSFERASE 56 U/L (0-55)
[2022-11-09 17:35] LABS: LIPASE 54 U/L (8-78)
[2022-11-09 17:39] LABS: BILIRUBIN,URINE NEGATIVE (NEGATIVE); CLARITY,URINE CLEAR; COLOR,URINE YELLOW; GLUCOSE, URINE (UA) NEGATIVE (NEGATIVE); KETONES,URINE NEGATIVE (NEGATIVE); LEUKOCYTE ESTERASE ,URINE NEGATIVE (NEGATIVE); NITRITE,URINE NEGATIVE (NEGATIVE); PH,URINE 6.5 (5-9); PROTEIN,URINE NEGATIVE (NEGATIVE)
[2022-11-09 17:52] LABS: BACTERIA,URINE NEGATIVE /HPF
[2022-11-09 17:54] LABS: AMPHETAMINE SCREEN, URINE NEGATIVE (NEGATIVE); BARBITURATE SCREEN URINE NEGATIVE (NEGATIVE); BENZODIAZEPINES SCREEN URINE NEGATIVE (NEGATIVE); CANNABINOID SCREEN, URINE NEGATIVE (NEGATIVE); COCAINE SCREEN URINE NEGATIVE (NEGATIVE); METHADONE STAT NEGATIVE (NEGATIVE); OPIATE SCREEN URINE NEGATIVE (NEGATIVE); OXYCODONE STAT NEGATIVE (NEGATIVE); PROPOXYPHENE STAT NEGATIVE (NEGATIVE); TRICYCLIC ANTIDEPRESSANTS SCRE NEGATIVE (NEGATIVE)
[2022-11-09] MEDS ORDERED: PANT40TA2 PO (17:58)
[2022-11-09] MEDS ORDERED: ONDA4TAB11 SL (17:58)
[2022-11-09] MEDS ORDERED: KETOROLAC 30 MG/ML VIAL IVP ONE (18:00)
[2022-11-09 18:17] VITALS: BP 131/83
== END 2022-11-09 18:17 | disposition home or self-care (01) ==
LOC: EDUNIT# 15:42 → ER 15:44
DX: R10.13 Epigastric pain (principal); R11.10 Vomiting, unspecified; K62.5 Hemorrhage of anus and rectum; F17.210 Nicotine dependence, cigarettes, uncomplicated
CPT/HCPCS: 74177; 80053; 80306; 81000; 83690; 85025; 99284; G0480; 36415; 80320

== ENCOUNTER 2022-11-17 13:42 | Inpatient (IN) | payer SELFPAY ==
[~2022-11-17] VITALS: Ht 185.4 cm; Wt 140.1 kg
[~2022-11-17 13:42] MED LIST changes: +PANT40TA2 PO
--- NOTE | 2022-11-17 13:53 | ED Psychosocial ---
General Stated Complaint: OVERDOSE ON ASPIRIN | APPROX 10,000 MILLIGRAMS History of Present Illness Date Seen by Provider: Nov 17, 2022 Time Seen by Provider: 13:53 Initial Comments 32-year-old male presents with intentional aspirin overdose. Patient reports he was depressed and was "halfheartedly" trying to overdose. Patient reports he took approximately 30 to 40 -noncoated 325 mg aspirins. This happened approximately an hour and 1/2 to 2 hours ago. Patient reports that he ended up visiting with his housemate. That this time he regrets that presented to the ER for help. He is not having any symptoms at this time. (KAHLIL KEBEDE DO) Allergies and Home Medications Allergies Coded Allergies: No Known Drug Allergies (Unverified , 01/12/09) Patient Home Medication List Home Medication List Reviewed: Yes (KAHLIL KEBEDE DO) Albuterol Sulfate (Ventolin Hfa) 18 Gm Hfa.aer.ad, 18 GM IH Q4H PRN for WHEEZING Prescribed by: JACQUELYN HILLS on 02/03/18 1155 Cephalexin (Cephalexin) 500 Mg Tablet, 500 MG PO QID Prescribed by: RYANNE ROSALES on 10/07/222032 Mupirocin (Mupirocin) 2 % Oint...g., 22 GM TP BID Prescribed by: RYANNE ROSALES on 10/07/222032 Ondansetron (Ondansetron Odt) 4 Mg Tab.rapdis, 4-8 MG PO Q6H PRN for NAUSEA/VOMITING Prescribed by: CADEN BLAKELY on 08/01/212225 Ondansetron (Ondansetron Odt) 4 Mg Tab.rapdis, 4-8 MG PO Q6H PRN for NAUSEA/VOMITING Prescribed by: CADEN BLAKELY on 02/03/222102 Ondansetron (Ondansetron Odt) 4 Mg Tab.rapdis, 4 MG SL Q4H PRN for NAUSEA/VOMITING Prescribed by: Shilo Dale on 06/08/222138 Ondansetron (Ondansetron Odt) 4 Mg Tab.rapdis, 4 MG SL Q4H PRN for NAUSEA/VOMITING Prescribed by: QUINTEN DICKSON on 11/09/22 1758 Paliperidone Palmitate (Invega Sustenna) 156 Mg/1 Ml Syringe, 156 MG IM MONTHLY, (Reported) Entered as Reported by: JERROD BLAKELY on 02/02/18 1013 Pantoprazole Sodium (Protonix) 40 Mg Tablet.dr, 40 MG PO DAILY Prescribed by: QUINTEN DICKSON on 11/09/22 175 Sucralfate (Sucralfate) 1 Gram Tablet, 1 GM PO ACHS Prescribed by: Shilo Dale on 06/08/222138 Review of Systems Constitutional: no symptoms reported; No chills, No fever EENTM: no symptoms reported Respiratory: no symptoms reported Cardiovascular: no symptoms reported Gastrointestinal: no symptoms reported Genitourinary: no symptoms reported Musculoskeletal: no symptoms reported Skin: no symptoms reported (KAHLIL KEBEDE DO) Past Tpkuvdp-Otarwx-Iazkal Hx Immunizations Up To Date Tetanus Booster (TDap): Less than 5yrs PED Vaccines UTD: Yes First/Initial COVID19 Vaccinat: march 2021 Second COVID19 Vaccination [place]: march 2021 Third COVID19 Vaccination Date: march 2021 (KAHLIL KEBEDE DO) Seasonal Allergies Seasonal Allergies: Yes (KAHLIL KEBEDE DO) Past Medical History Surgery/Hospitalization HX: APPY, PIN IN THIRD FINGER R HAND Surgeries: Yes (DENTAL, RT HAND-3RD METACARPAL PINNED; APPY 2008) Appendectomy, Orthopedic Respiratory: Yes Asthma Currently Using CPAP: No Currently Using BIPAP: No Cardiac: No Neurological: No Genitourinary: No Gastrointestinal: Yes Gastroesophageal Reflux Musculoskeletal: Yes (chronic back and neck pain;R HAND 3RD METACARPAL PINNED) Chronic Back Pain, Fractures Endocrine: No HEENT: No Cancer: No Psychosocial: Yes (bipolar 2, ADHD, impulse control disorder) ADD/ADHD, Anxiety, Suicide Attempts, Bipolar, Depression Integumentary: No Blood Disorders: No Adverse Reaction/Blood Tranf: No (KAHLIL KEBEDE DO) Family Medical History Prostate cancer Grandfather Thyroid disease 19 MOTHER Physical Exam Vital Signs - First Documented 11/17/22 14:00 Temp 37.1 Pulse 84 Resp 18 B/P (MAP) 123/83 (96) Pulse Ox 98 O2 Delivery Room Air (WEST ZAMORA MD) Capillary Refill : (KEBEDE,KAHLIL L DO) Height, Weight, BMI Height: 6'1.00" Weight: 278lbs. 0.0oz. 126.032689ck; 40.00 BMI Method:Stated General Appearance: WD/WN, no apparent distress Neck: full range of motion, supple Cardiovascular: normal peripheral pulses, regular rate, rhythm Gastrointestinal: non tender, soft Extremities: non-tender, normal inspection Neurologic/Psychiatric: department editor II-XII nml as tested, no motor/sensory deficits, alert, normal mood/affect, oriented x 3 Appearance/Memory: appropriate appearance Behavior/Eye Contact: cooperative, good eye contact Thoughts/Hallucinations: other (Suicidal ideation, depression) Skin: normal color, warm/dry (KEBEDE,KAHLIL L DO) Procedures/Interventions Suture Size: 5-0 (KEBEDE,KAHLIL L DO) Progress/Results/Core Measures Results/Orders Lab Results Laboratory Tests Test 11/17/22 14:09 11/17/22 14:11 11/17/22 14:14 11/17/22 15:55 Range/Units Urine Color YELLOW Urine Clarity CLEAR Urine pH 6.0 5-9 Urine Specific [place] 1.010 L 1.016-1.022 Urine Protein NEGATIVE NEGATIVE Urine Glucose (UA) NEGATIVE NEGATIVE Urine Ketones NEGATIVE NEGATIVE Urine Nitrite NEGATIVE NEGATIVE Urine Bilirubin NEGATIVE NEGATIVE Urine Urobilinogen 0.2 < = 1.0 MG/DL Urine Leukocyte Esterase NEGATIVE NEGATIVE Urine RBC (Auto) NEGATIVE NEGATIVE Urine RBC NONE /HPF Urine WBC NONE /HPF Urine Squamous Epithelial Cells RARE /HPF Urine Crystals NONE /LPF Urine Bacteria NEGATIVE /HPF Urine Casts NONE /LPF Urine Mucus NEGATIVE /LPF Urine Culture Indicated NO Urine Opiates Screen NEGATIVE NEGATIVE Urine Oxycodone Screen NEGATIVE NEGATIVE Urine Methadone Screen NEGATIVE NEGATIVE Urine Propoxyphene Screen NEGATIVE NEGATIVE Urine Barbiturates Screen NEGATIVE NEGATIVE Ur Tricyclic Antidepressants Screen NEGATIVE NEGATIVE Urine Phencyclidine Screen NEGATIVE NEGATIVE Urine Amphetamines Screen NEGATIVE NEGATIVE Urine Methamphetamines Screen NEGATIVE NEGATIVE Urine Benzodiazepines Screen NEGATIVE NEGATIVE Urine Cocaine Screen NEGATIVE NEGATIVE Urine Cannabinoids Screen NEGATIVE NEGATIVE Sodium Level 138 135-145 MMOL/L Potassium Level 3.2 L 3.6-5.0 MMOL/L Chloride Level 106 98-107 MMOL/L Carbon Dioxide Level 20 L 21-32 MMOL/L Anion Gap 12 5-14 MMOL/L Blood Urea Nitrogen 7 7-18 MG/DL Creatinine 0.87 0.60-1.30 MG/DL Estimat Glomerular Filtration Rate 119 BUN/Creatinine Ratio 8 Glucose Level 139 H 70-105 MG/DL Calcium Level 9.1 8.5-10.1 MG/DL Corrected Calcium 8.9 8.5-10.1 MG/DL Phosphorus Level 2.4 2.3-4.7 MG/DL Magnesium Level 1.8 1.6-2.4 MG/DL Total Bilirubin 0.3 0.1-1.0 MG/DL Aspartate Amino Transf (AST/SGOT) 30 5-34 U/L Alanine Aminotransferase (ALT/SGPT) 55 0-55 U/L Alkaline Phosphatase 59 40-136 U/L Total Protein 7.2 6.4-8.2 GM/DL Albumin 4.2 3.2-4.5 GM/DL Salicylates Level 18.6 32.8 *H 5.0-20.0 MG/DL Acetaminophen Level < 10 L 10-30 UG/ML Serum Alcohol < 10 <10 MG/DL White Blood Count 8.7 4.3-11.0 10^3/uL Red Blood Count 5.19 4.30-5.52 10^6/uL Hemoglobin 14.2 13.3-17.7 g/dL Hematocrit 43 40-54 % Mean Corpuscular Volume 83 80-99 fL Mean Corpuscular Hemoglobin 27 25-34 pg Mean Corpuscular Hemoglobin Concent 33 32-36 g/dL Red Cell Distribution Width 12.4 10.0-14.5 % Platelet Count 205 130-400 10^3/uL Mean Platelet Volume 10.8 9.0-12.2 fL Immature Granulocyte % (Auto) 0 % Neutrophils (%) (Auto) 67 42-75 % Lymphocytes (%) (Auto) 26 12-44 % Monocytes (%) (Auto) 5 0-12 % Eosinophils (%) (Auto) 2 0-10 % Basophils (%) (Auto) 0 0-10 % Neutrophils # (Auto) 5.8 1.8-7.8 10^3/uL Lymphocytes # (Auto) 2.2 1.0-4.0 10^3/uL Monocytes # (Auto) 0.5 0.0-1.0 10^3/uL Eosinophils # (Auto) 0.2 0.0-0.3 10^3/uL Basophils # (Auto) 0.0 0.0-0.1 10^3/uL Immature Granulocyte # (Auto) 0.0 0.0-0.1 10^3/uL Prothrombin Time 12.8 12.2-14.7 SEC INR Comment 0.9 0.8-1.4 Activated Partial Thromboplast Time 29 24-35 SEC Venous Blood pH 7.41 7.31-7.41 Venous Blood Partial Pressure CO2 35 L 40-52 MMHG Venous Blood HCO3 22 22-28 MMOL/L Test 11/17/22 18:00 Range/Units Venous Blood pH 7.46 H 7.31-7.41 Venous Blood Partial Pressure CO2 32 L 40-52 MMHG Venous Blood HCO3 22 22-28 MMOL/L Sodium Level 139 135-145 MMOL/L Potassium Level 3.9 3.6-5.0 MMOL/L Chloride Level 108 H 98-107 MMOL/L Carbon Dioxide Level 18 L 21-32 MMOL/L Anion Gap 13 5-14 MMOL/L Blood Urea Nitrogen 6 L 7-18 MG/DL Creatinine 0.86 0.60-1.30 MG/DL Estimat Glomerular Filtration Rate 119 BUN/Creatinine Ratio 7 Glucose Level 86 70-105 MG/DL Calcium Level 9.5 8.5-10.1 MG/DL Salicylates Level 41.2 *H 5.0-20.0 MG/DL (WEST ZAMORA MD) My Orders Orders - EWST ZAMORA MD Venous Blood Gas (11/17/22 17:53) Salicylate (11/17/22 17:53) Basic Metabolic Panel (11/17/22 17:53) D5w 1000 Ml Iv Solu... W/Sodium Bicarbon (11/17/22 18:47) Potassium Cl 10meq/50ml Ivpb (Kcl 10 Meq (11/17/22 18:47) Magnesium 1 Gm/100 Ml Ivpb (Magnesium [place] (11/17/22 18:47) Chest 1 View, Ap/Pa Only (11/17/22 18:55) (WEST ZAMORA MD) Vital Signs/I&O 11/17/22 14:00 Temp 37.1 Pulse 84 Resp 18 B/P (MAP) 123/83 (96) Pulse Ox 98 O2 Delivery Room Air (WEST ZAMORA MD) Progress Progress Note : Progress Note Called and discussed case with poison control. Patient's initial labs showed no concerning findings. However we will need to recheck patient's aspirin level until it is trending down for 2 draws in a row. Patient's peak level will happen somewhere around 5 to 6 PM. If patient's level gets to be greater than 35 mg/dL that point he will require admission and further management. Patient with some mild tinnitus but otherwise remains symptomatic. Patient's care was turned over to Dr. Zamora at 6 PM at shift change. At that time a BMP VBG and repeat aspirin level were ordered. Further management will be based on results of the pending test. (KAHLIL KEBEDE DO) Progress Note : Progress Note I received signout pending to repeat lab values. His aspirin level went up to 41.2 unfortunately. His anion gap is 13 which is reassuring, normal creatinine, potassium 3.8, previous magnesium of 1.8, pH 7.46 with a slightly low PCO2 which is consistent with respiratory alkalosis. Unfortunately, his Afrin level is too high, he will require a bicarb drip. I contacted poison control again and discussed the case with him. We will continue the bicarb drip until his aspirin level is less than 30. They recommend every 2 hour aspirin levels, BMP, and VBG with a goal pH between 7.5 and 7.6. He should also get every hour glucose levels. I also started IV potassium and magnesium and supplementation drip. I contacted the [facility] physician on-call who will admit the patient to the intensive care unit under inpatient status. I then contacted the ICU physician for signout as well. (WEST ZAMORA MD) Initial ECG Impression Date: Nov 17, 2022 Initial ECG Impression Time: 14:03 Initial ECG Rate: 67 Initial ECG Rhythm: Normal Sinus Comment , Likely limb lead reversal, no STEMI, QTc 393 (WEST ZAMORA MD) Diagnostic Imaging Diagonstic Imaging: Xray (chest) Comments [facility] [place], [place] NAME: [facility] REC#: [id number] PT STATUS: REG ER : 1990 PHYSICIAN: WEST ZAMORA MD ADMIT DATE: 11/17/22/ER Draft Date of Exam:11/17/22 CHEST 1 VIEW, AP/PA ONLY INDICATION: 32-year-old male with aspirin overdose and shortness of breath. COMPARISONS: 10/07/2021 FINDINGS: Single view of the chest shows normal heart, pleura and diaphragms. There is some mild central venous prominence. Some basilar atelectatic infiltrates are seen. Soft tissues and bony thorax unremarkable. IMPRESSION: This film is slightly underpenetrated. Mild central venous congestion with some basilar atelectatic infiltrates but no confluent consolidations. Dictated on workstation # [id number] Dict: 11/17/221908 Trans: 11/17/221914 CVB [id number] Interpreted by: RON GIL MD Electronically signed by: (WEST ZAMORA MD) Departure Impression Primary Impression: Intentional aspirin overdose Qualified Codes: T39.012A - Poisoning by aspirin, intentional self-harm, initial encounter Disposition: ADMITTED INPATIENT Condition: Stable Admissions Decision to Admit Reason: Admit from ER (General) Decision to Admit/Date: Nov 17, 2022 Time/Decision to Admit Time: 19:30 (WEST ZAMORA MD) Departure-Patient Inst. Referrals: [facility] (PCP/Family) Primary Care Physician KAHLIL KEBEDE DO Nov 17, 2022 13:53 WEST ZAMORA MD Nov 17, 2022 19:25
[2022-11-17 14:12] LABS: BILIRUBIN,URINE NEGATIVE (NEGATIVE); CLARITY,URINE CLEAR; COLOR,URINE YELLOW; GLUCOSE, URINE (UA) NEGATIVE (NEGATIVE); KETONES,URINE NEGATIVE (NEGATIVE); LEUKOCYTE ESTERASE ,URINE NEGATIVE (NEGATIVE); NITRITE,URINE NEGATIVE (NEGATIVE); PROTEIN,URINE NEGATIVE (NEGATIVE)
[2022-11-17 14:17] LABS: BASOPHILS % (AUTO) 0 % (0-10); EOSINOPHILS # (AUTO) 0.2 10^3/uL (0.0-0.3); EOSINOPHILS % (AUTO) 2 % (0-10); HEMATOCRIT 43 % (40-54); HEMOGLOBIN 14.2 g/dL (13.3-17.7); LYMPHOCYTES # (AUTO) 2.2 10^3/uL (1.0-4.0); LYMPHOCYTES % (AUTO) 26 % (12-44); MEAN CORPUSCULAR HEMOGLOBIN 27 pg (25-34); MEAN CORPUSCULAR HGB CONC 33 g/dL (32-36); MEAN CORPUSCULAR VOLUME 83 fL (80-99); MEAN PLATELET VOLUME 10.8 fL (9.0-12.2); MONOCYTES # (AUTO) 0.5 10^3/uL (0.0-1.0); MONOCYTES % (AUTO) 5 % (0-12); NEUTROPHILS # (AUTO) 5.8 10^3/uL (1.8-7.8); NEUTROPHILS % (AUTO) 67 % (42-75); PLATELET COUNT 205 10^3/uL (130-400); WHITE BLOOD COUNT 8.7 10^3/uL (4.3-11.0)
[2022-11-17 14:20] LABS: BACTERIA,URINE NEGATIVE /HPF; SQUAMOUS EPITHELIAL CELL,UR RARE /HPF
[2022-11-17 14:24] LABS: AMPHETAMINE SCREEN, URINE NEGATIVE (NEGATIVE); BARBITURATE SCREEN URINE NEGATIVE (NEGATIVE); BENZODIAZEPINES SCREEN URINE NEGATIVE (NEGATIVE); CANNABINOID SCREEN, URINE NEGATIVE (NEGATIVE); COCAINE SCREEN URINE NEGATIVE (NEGATIVE); METHADONE STAT NEGATIVE (NEGATIVE); OPIATE SCREEN URINE NEGATIVE (NEGATIVE); OXYCODONE STAT NEGATIVE (NEGATIVE); PROPOXYPHENE STAT NEGATIVE (NEGATIVE); TRICYCLIC ANTIDEPRESSANTS SCRE NEGATIVE (NEGATIVE)
[2022-11-17 14:32] LABS: INR 0.9 (0.8-1.4); PROTHROMBIN TIME PATIENT 12.8 SEC (12.2-14.7)
[2022-11-17 14:36] LABS: CHLORIDE 106 MMOL/L (98-107); POTASSIUM 3.2 MMOL/L (3.6-5.0); SODIUM 138 MMOL/L (135-145)
[2022-11-17 14:37] LABS: ALBUMIN 4.2 GM/DL (3.2-4.5)
[2022-11-17 14:38] LABS: CALCIUM 9.1 MG/DL (8.5-10.1)
[2022-11-17 14:39] LABS: GLUCOSE 139 MG/DL (70-105)
[2022-11-17 14:40] LABS: CARBON DIOXIDE 20 MMOL/L (21-32); TOTAL PROTEIN 7.2 GM/DL (6.4-8.2)
[2022-11-17 14:41] LABS: BILIRUBIN,TOTAL 0.3 MG/DL (0.1-1.0)
[2022-11-17 14:43] LABS: ALKALINE PHOSPHATASE 59 U/L (40-136); CREATININE SERUM 0.87 MG/DL (0.60-1.30); GFR ESTIMATED 119; PHOSPHORUS 2.4 MG/DL (2.3-4.7)
[2022-11-17 14:45] LABS: BUN/CREATININE RATIO 8
[2022-11-17 14:46] LABS: ALANINE AMINOTRANSFERASE 55 U/L (0-55); SALICYLATE 18.6 MG/DL (5.0-20.0)
[2022-11-17 14:47] LABS: MAGNESIUM 1.8 MG/DL (1.6-2.4)
[2022-11-17 14:55] LABS: ACETAMINOPHEN < 10 UG/ML (10-30)
[2022-11-17 18:22] LABS: POTASSIUM 3.9 MMOL/L (3.6-5.0)
[2022-11-17 18:23] LABS: CALCIUM 9.5 MG/DL (8.5-10.1)
[2022-11-17 18:28] LABS: CREATININE SERUM 0.86 MG/DL (0.60-1.30)
[2022-11-17 18:44] LABS: SALICYLATE 41.2 MG/DL (5.0-20.0)
[2022-11-17] MEDS ORDERED: POTASSIUM CL 10MEQ/50ML IVPB 50 ML IV STA (18:47)
[2022-11-17] MEDS ORDERED: SODIUM BICARBONATE 8.4% SYR 150 MEQ in D5W 1000 ML IV SOLUTION 1,000 ML IV STA (18:47)
[2022-11-17] MEDS ORDERED: MAGNESIUM 1 GM/100 ML IVPB 100 ML IV STA (18:47)
--- NOTE | 2022-11-17 19:15 | Diagnostic Imaging Report ---
INDICATION: 32-year-old male with aspirin overdose and shortness of breath. COMPARISONS: 10/07/2021 FINDINGS: Single view of the chest shows normal heart, pleura and diaphragms. There is some mild central venous prominence. Some basilar atelectatic infiltrates are seen. Soft tissues and bony thorax unremarkable. IMPRESSION: This film is slightly underpenetrated. Mild central venous congestion with some basilar atelectatic infiltrates but no confluent consolidations. Dictated by: Dictated on workstation # [id number]
[2022-11-17] MEDS ORDERED: SODIUM BICARBONATE 8.4% SYR 150 MEQ in D5W 1000 ML IV SOLUTION 1,000 ML IV SCH (20:45)
[2022-11-17] MEDS ORDERED: NS IV 500 ML 500 ML IV PRN (20:45)
[2022-11-17 20:54] LABS: CALCIUM 9.4 MG/DL (8.5-10.1); CREATININE SERUM 0.89 MG/DL (0.60-1.30); POTASSIUM 3.9 MMOL/L (3.6-5.0)
[2022-11-17 21:01] LABS: SALICYLATE 39.7 MG/DL (5.0-20.0)
--- NOTE | 2022-11-17 22:51 | History & Physical ---
HAMILTON ORTIZ MD 11/17/22 2251: HPI History of Present Illness: 32 yo male with a medical history significant for schizoaffective disorder, bipolar II, admitted for overdose of ASA ingestion. Today Pt reports ingesting about half a bottle of 325 mg aspirin in an attempt to commit suicide. After the ingestion he felt nauseous, had tinnitus and felt dizzy. He gave the pill bottle to his roommate who then took him to the ED. Pt reports that he no longer has SI currently. He reports that he got scared about his life being so good and was waiting for " the other shoe to drop", he said that he has self-sabotaging behaviors in times like these. He says he recently obtained a new job and is seeing a new partner. He reports that the last time he attempted suicide was in 2020 in a similar manner. He has a h/o self harm via burning when he was a young adult. He he previously seen a therapist, however has not seen her in a while. He feels remorse for his actions and does not have any plans to repeat this in the near future. Source: patient Exam Limitations: no limitations Date seen by provider: Nov 17, 2022 Time Seen by Provider: 19:30 Attending Physician [facility] PCP Admitting Physician: Rosalie Pennington MD Attending Physician: Rosalie Pennington MD Consult Date of Admission Nov 17, 2022 at 20:48 Home Medications Home Medications Reviewed patient Home Medication Reconciliation performed by pharmacy medication reconciliations neon technician and/or nursing. Patients Allergies have been reviewed. Allergies Coded Allergies: No Known Drug Allergies (Unverified , 01/12/09) JHP-Jpbupi-Kjerpq Hx Patient Social History Marrital Status: single Employed/Student: employed Drug of Choice: METH, cannibus, morphine, oxycontin, xanax Smoking Status: Current Everyday Smoker 2nd Hand Smoke Exposure: Yes Recent Hopitalizations: No Alcohol Use?: No Tobacco type used: Cigarettes Immunizations Up To Date Tetanus Booster (TDap): Less than 5yrs Influenza Vaccine Up-to-Date: Yes; Up-to-Date First/Initial COVID19 Vaccinat: march 2021 Second COVID19 Vaccination [place]: march 2021 Third COVID19 Vaccination Date: march 2021 Past Medical History Pasts Medical History 1. Bipolar II 2. Impulse control disorder 3. ADHD 4. History of suicide attempt x4 5. Gastroparesis, GERD, Gastritis 6. Illicit drug use- THC, Oxycodone, Xanax, Morphine, Meth Past Surgical History 1. Appendectomy 2. EGD 2008 [place] Family Medical History Family History: Prostate cancer Grandfather Thyroid disease 19 MOTHER Review of Systems ([facility]) Constitutional: dizziness EENTM: see HPI Respiratory: see HPI Cardiovascular: see HPI Gastrointestinal: see HPI Genitourinary: see HPI Musculoskeletal: see HPI Skin: see HPI Psychiatric/Neurological: See HPI All Other Systems Reviewed Negative Unless Noted: Yes Physical Exam-([facility]) Physical Exam Vital Signs VS - Last 72 Hours, by Label 11/17/22 11/17/22 11/17/22 11/17/22 14:00 20:45 21:04 21:05 Temp 37.1 37.1 36.4 Pulse 84 93 89 87 Resp 18 16 16 B/P (MAP) 123/83 (96) 127/98 135/90 (100) Pulse Ox 98 97 98 O2 Delivery Room Air Room Air Room Air 11/17/22 11/17/22 11/17/22 11/17/22 21:15 21:18 21:30 21:45 Pulse 73 78 78 Resp 18 12 28 B/P (MAP) 128/80 (101) 126/86 (99) 124/82 (94) Pulse Ox 97 96 100 97 O2 Delivery Room Air Room Air Room Air Room Air 11/17/22 11/17/22 11/17/22 22:00 22:15 22:30 Pulse 84 67 80 Resp 19 28 21 B/P (MAP) 116/80 (92) 126/79 (95) 111/69 (83) Pulse Ox 97 99 97 O2 Delivery Room Air Room Air Room Air Capillary Refill : Less Than 3 Seconds General Appearance: no apparent distress Eyes: Bilateral Eye Normal Inspection, Bilateral Eye EOMI HEENT: PERRL/EOMI, pharynx normal Neck: non-tender, full range of motion Respiratory: chest non-tender, lungs clear, normal breath sounds, no respiratory distress, no accessory muscle use Cardiovascular: normal peripheral pulses, no edema Gastrointestinal: normal bowel sounds, non tender, soft Skin: normal color, warm/dry Assessment/Plan Assessment/Plan Admission Status: Inpatient Order (span 2 midnights) Reason for Inpatient Admission: Intentional ingestion of ASA. (1) Poisoning by aspirin, intentional self-harm Status: Acute ROSALIE PENNINGTON MD 11/18/22 1435: Home Medications Allergies Coded Allergies: No Known Drug Allergies (Unverified , 01/12/09) URP-Zqdjue-Rmktfy Hx Family Medical History Family History: Prostate cancer Grandfather Thyroid disease 19 MOTHER Supervisory-Addendum Brief Supervisory Addendum I saw patient this morning at 0920. He was admitted and started on bicarb drip per poison control recs, which was continued until salicylate below 30, 2 levels trending down, will have [facility] plan for discharge. I performed a history and physical examination fot he patient and discussed the management with the resident. I reviewed the resdient's note and agree with the documented findings and plan of care. HAMILTON ORTIZ MD Nov 17, 2022 22:51 ROSALIE PENNINGTON MD Nov 18, 2022 14:35
[2022-11-17] MEDS ORDERED: inSUlin ASPART (NovoLOG) 1 UNIT/0.01 ML (CHARGE PER UNIT) ONE (22:59)
[2022-11-17 23:00] LABS: POTASSIUM 3.4 MMOL/L (3.6-5.0)
[2022-11-17 23:05] LABS: CREATININE SERUM 0.91 MG/DL (0.60-1.30)
[2022-11-17 23:08] LABS: MAGNESIUM 2.1 MG/DL (1.6-2.4)
--- NOTE | 2022-11-17 23:17 | Tele-ICU Progress Note ---
Subjective Date Seen by a Provider: Nov 17, 2022 Time Seen by a Provider: 21:00 Sepsis Event Evaluation Sepsis Stage: Ruled Out Height, Weight, BMI Height: 6'1.00" Weight: 278lbs. 0.0oz. 126.216290cn; 40.75 BMI Method:Stated Focused Exam Sepsis Stage: Ruled Out Exam Exam Patient acknowledged, consented, and participated in this virtual visit which was conducted using real time audio/video Vital Signs Date Time Temp Pulse Resp B/P (MAP) Pulse Ox O2 Delivery O2 Flow Rate FiO2 11/17/22 22:45 69 22 112/74 (87) 98 Room Air 11/17/22 22:30 80 21 111/69 (83) 97 Room Air 11/17/22 22:15 67 28 126/79 (95) 99 Room Air 11/17/22 22:00 84 19 116/80 (92) 97 Room Air 11/17/22 21:45 78 28 124/82 (94) 97 Room Air 11/17/22 21:39 103 11/17/22 21:38 62 11/17/22 21:30 78 12 126/86 (99) 100 Room Air 11/17/22 21:18 96 Room Air 11/17/22 21:15 73 18 128/80 (101) 97 Room Air 11/17/22 21:05 36.4 87 16 135/90 (100) 98 Room Air 11/17/22 21:04 89 11/17/22 20:45 37.1 93 16 127/98 97 Room Air 11/17/22 14:00 37.1 84 18 123/83 (96) 98 Room Air Height & Weight Height: 6'1.00" Weight: 278lbs. 0.0oz. 126.462891tt; 40.75 BMI Method:Stated General Appearance: No Apparent Distress Capillary Refill: Less Than 3 Seconds Gastrointestinal: normal bowel sounds, non tender, soft Results Lab Laboratory Tests 11/17/22 14:11 11/17/22 14:14 11/17/22 18:00 11/17/22 20:10 11/17/22 22:40 Assessment/Plan Assessment/Plan cc od hpi 32 yo male presents with suicide attempt. history is taken from the patients er note, as [place]. Patient reported depressions, took 30-40 asa pills 325mg each. 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 no symtoms reported in er. per er notes, no n/v. no tinnitus initally, but upon transfer to ICU complaining of ringing in the ears. pmhx asthma pshx nc fam hx non cont social hx unk allergy nkda ros as above. Temp 37.1 Pulse 84 Resp 18 B/P (MAP) 123/83 (96) Pulse Ox 98 O2 Delivery Room Air PE deffered, remote location monitoring. labs of note etoh negative asa 32.8 (5-20) see emar for complete labs imaging see emar I/P 1. ASA od 2. Suicide attempt 3. Depression admission orders per PCP contact poison control called by ER and approperiate orders entered. asa levels q2 hours until 2 downtrends. currently uptrending. last asa level 41. admit to icu. q1h accuchecks. bicarb gtt started follow poison control recs. electroltyte monitoring and correction as needed bg management urine alkalanization with bicarb gtt needs psych monitoring needs sitter bedside suicide precautions video assessement further orders per nursing requests ct 20m This was required to treat and/or prevent further deterioration of critical care conditions ( as above ). Service provided to a patient admitted to ICU bed via interactive E-CARE system with real-time audio and video telecommunications from [facility] tele- ICU hub located in [place], [place] Critical Care: Critically Ill Patient AYESHA TORREZ DO Nov 17, 2022 23:17
[2022-11-17 23:40] LABS: SALICYLATE 32.3 MG/DL (5.0-20.0)
[2022-11-18 00:47] LABS: POTASSIUM 3.2 MMOL/L (3.6-5.0)
[2022-11-18 00:48] LABS: CALCIUM 8.7 MG/DL (8.5-10.1)
[2022-11-18 00:52] LABS: CREATININE SERUM 0.91 MG/DL (0.60-1.30)
[2022-11-18 00:55] LABS: SALICYLATE 28.8 MG/DL (5.0-20.0)
[2022-11-18 02:45] LABS: POTASSIUM 3.2 MMOL/L (3.6-5.0)
[2022-11-18 02:46] LABS: CALCIUM 8.8 MG/DL (8.5-10.1)
[2022-11-18 02:51] LABS: CREATININE SERUM 0.99 MG/DL (0.60-1.30)
[2022-11-18 02:53] LABS: SALICYLATE 26.1 MG/DL (5.0-20.0)
[2022-11-18 04:57] LABS: POTASSIUM 3.4 MMOL/L (3.6-5.0)
[2022-11-18 04:58] LABS: CALCIUM 8.8 MG/DL (8.5-10.1)
[2022-11-18 05:03] LABS: CREATININE SERUM 1.01 MG/DL (0.60-1.30)
[2022-11-18 05:05] LABS: SALICYLATE 24.8 MG/DL (5.0-20.0)
[2022-11-18] MEDS: POTASSIUM CL 10MEQ/50ML IVPB 50 ML IV SCH ×4 (05:48→10:53)
[2022-11-18] MEDS ORDERED: POTASSIUM CL 10MEQ/50ML IVPB 50 ML IV SCH (06:00)
[2022-11-18] MEDS ORDERED: MAGNESIUM 1 GM/100 ML IVPB 100 ML IV SCH (06:00)
--- NOTE | 2022-11-18 09:09 | Tele-ICU Progress Note ---
Subjective Date Seen by a Provider: Nov 18, 2022 Time Seen by a Provider: 09:08 Subjective/Events-last exam (Tele-ICU Physician , Progress Note ) Service provided via interactive audio and video telecommunications E-CARE system to a patient admitted to ICU bed in [facility]. Patient is seen today due to persistent need of ICU care Available chart/ vitals / labs / Images reviewed Video assessment done using teleICU camera, rest of exam as per RN Discussed with RN Events overnight : Afebrile hemodynamically stable Respiratory - ra Pressors- no A/P 1. ASA od 2. Suicide attempt 3. Depression 4. asthma - stable poison control called asa levels normalized - stopp checking q1h accuchecks to stop bicarb gtt to stop follow poison control recs. needs psych monitoring ans assessment (needs sitter bedside ,suicide precautions Plans in collaboration with bedside consultants and IM MDs. Discussed with RN to reach out if any questions or concerns Case and care daily discussed on multidisciplinary rounds ( RN, PharmD, Gravity Manager , Respiratory Therapy, upkeep worker ) A total of 10 minutes of critical care time was devoted to this patient today, required to treat and/or prevent further deterioration of critical care condition ( as above ) . I am remotely monitoring this patient from another state. I am unable to do the bedside exam, and history/physical and pertinent information is taken from other notes in the computer and bedside staff. Sepsis Event Evaluation Height, Weight, BMI Height: 6'1.00" Weight: 278lbs. 0.0oz. 126.451393tz; 40.75 BMI Method:Stated Exam Exam Patient acknowledged, consented, and participated in this virtual visit which was conducted using real time audio/video Vital Signs Date Time Temp Pulse Resp B/P (MAP) Pulse Ox O2 Delivery O2 Flow Rate FiO2 11/18/22 08:00 67 15 112/65 (81) 93 Room Air 11/18/22 07:37 36.3 Room Air 11/18/22 07:15 55 11/18/22 07:00 67 17 107/68 (81) 94 Room Air 11/18/22 06:00 71 16 93/56 (68) 95 Room Air 11/18/22 05:00 75 19 107/80 (89) 92 Room Air 11/18/22 04:00 90 Room Air 11/18/22 04:00 69 19 117/72 (87) 94 Room Air 11/18/22 03:00 70 17 102/54 (70) 94 Room Air 11/18/22 02:00 67 18 120/71 (87) 95 Room Air 11/18/22 01:30 66 17 96 Room Air 11/18/22 01:00 68 13 121/67 (85) 97 Room Air 11/18/22 01:00 68 11/18/22 01:00 121/67 (82) 11/18/22 00:30 57 19 99 Room Air 11/18/22 00:00 71 20 119/67 (84) 94 Room Air 11/17/22 23:59 97 Room Air 11/17/22 23:30 71 21 126/69 (88) 93 Room Air 11/17/22 23:15 105 18 124/66 (85) 96 Room Air 11/17/22 23:00 76 21 120/75 (90) 94 Room Air 11/17/22 22:45 69 22 112/74 (87) 98 Room Air 11/17/22 22:30 80 21 111/69 (83) 97 Room Air 11/17/22 22:15 67 28 126/79 (95) 99 Room Air 11/17/22 22:00 84 19 116/80 (92) 97 Room Air 11/17/22 21:45 78 28 124/82 (94) 97 Room Air 11/17/22 21:39 103 11/17/22 21:38 62 11/17/22 21:30 78 12 126/86 (99) 100 Room Air 11/17/22 21:18 96 Room Air 11/17/22 21:15 73 18 128/80 (101) 97 Room Air 11/17/22 21:05 36.4 87 16 135/90 (100) 98 Room Air 11/17/22 21:04 89 11/17/22 20:45 37.1 93 16 127/98 97 Room Air 11/17/22 14:00 37.1 84 18 123/83 (96) 98 Room Air I & O 11/18/22 07:00 Intake Total 1250 ml Balance 1250 ml Height & Weight Height: 6'1.00" Weight: 278lbs. 0.0oz. 126.734029ri; 40.75 BMI Method:Stated General Appearance: No Apparent Distress Capillary Refill: Less Than 3 Seconds Gastrointestinal: normal bowel sounds, non tender, soft Results Lab Laboratory Tests 11/17/22 14:11 11/17/22 14:14 11/17/22 18:00 11/17/22 20:10 11/17/22 22:40 11/18/22 00:30 11/18/22 02:30 11/18/22 04:30 Assessment/Plan Assessment/Plan 1 GUZMAN BORREGO MD Nov 18, 2022 09:08
--- NOTE | 2022-11-18 14:36 | Discharge Summary ---
Discharge Summary Hospital Course Problems/Diagnosis: (1) Poisoning by aspirin, intentional self-harm Status: Acute Assessment & Plan: Admitted and placed on bicarb drip. Stopped per poison control when salicylate level down. Screened by [facility] and outpatient follow up recommended. Qualifiers: Qualified Codes: T39.012A - Poisoning by aspirin, intentional self-harm, initial encounter (2) Snoring Assessment & Plan: Having desaturations when sleeping, reports history of snoring, discussed obtaining sleep study outpatient, should follow up with primary. Hospital Course Date of Admission: Nov 17, 2022 at 20:48 Admission Diagnosis : Family Physician/Provider: Center/[facility] Date of Discharge: 11/18/22 Discharge Diagnosis: See problem lsit Hospital Course: See problem list Labs and Pending Lab Test: Laboratory Tests 11/17/22 15:55: Salicylates Level 32.8*H 11/17/22 18:00: Salicylates Level 41.2*H, Venous Blood pH 7.46H, Venous Blood Partial Pressure CO2 32L, Venous Blood HCO3 22, Sodium Level 139, Potassium Level 3.9, Chloride Level 108H, Carbon Dioxide Level 18L, Anion Gap 13, Blood Urea Nitrogen 6L, Creatinine 0.86, Estimat Glomerular Filtration Rate 119, BUN/Creatinine Ratio 7, Glucose Level 86, Calcium Level 9.5 11/17/22 20:10: Salicylates Level 39.7*H, Venous Blood pH 7.45H, Venous Blood Partial Pressure CO2 36L, Venous Blood HCO3 25, Sodium Level 139, Potassium Level 3.9, Chloride Level 105, Carbon Dioxide Level 20L, Anion Gap 14, Blood Urea Nitrogen 6L, Creatinine 0.89, Estimat Glomerular Filtration Rate 118, BUN/Creatinine Ratio 7, Glucose Level 103, Calcium Level 9.4 11/17/22 21:14: Glucometer 98 11/17/22 22:13: Glucometer 102 11/17/22 22:40: Venous Blood pH 7.51H, Venous Blood Partial Pressure CO2 33L, Venous Blood HCO3 26, Sodium Level 141, Potassium Level 3.4L, Chloride Level 104, Carbon Dioxide Level 25, Anion Gap 12, Blood Urea Nitrogen 6L, Creatinine 0.91, Estimat Glomerular Filtration Rate 116, BUN/Creatinine Ratio 7, Glucose Level 93, Calcium Level 9.0, Magnesium Level 2.1, Salicylates Level 32.3*H 11/18/22 00:07: Glucometer 100 11/18/22 00:30: Sodium Level 141, Potassium Level 3.2L, Chloride Level 103, Carbon Dioxide Level 27, Anion Gap 11, Blood Urea Nitrogen 6L, Creatinine 0.91, Estimat Glomerular Filtration Rate 116, BUN/Creatinine Ratio 7, Glucose Level 93, Calcium Level 8.7, Magnesium Level 2.0, Salicylates Level 28.8H 11/18/22 00:47: Venous Blood pH 7.48H, Venous Blood Partial Pressure CO2 40, Venous Blood HCO3 30H 11/18/22 02:04: Glucometer 72 11/18/22 02:30: Venous Blood pH 7.45H, Venous Blood Partial Pressure CO2 43, Venous Blood HCO3 30H, Sodium Level 141, Potassium Level 3.2L, Chloride Level 103, Carbon Dioxide Level 27, Anion Gap 11, Blood Urea Nitrogen 6L, Creatinine 0.99, Estimat Glomerular Filtration Rate 105, BUN/Creatinine Ratio 6, Glucose Level 78, Calcium Level 8.8, Magnesium Level 2.0, Salicylates Level 26.1H 11/18/22 04:03: Glucometer 88 11/18/22 04:30: Venous Blood pH 7.43H, Venous Blood Partial Pressure CO2 47, Venous Blood HCO3 31H, Sodium Level 141, Potassium Level 3.4L, Chloride Level 104, Carbon Dioxide Level 26, Anion Gap 11, Blood Urea Nitrogen 7, Creatinine 1.01, Estimat Glomerular Filtration Rate 103, BUN/Creatinine Ratio 7, Glucose Level 82, Calcium Level 8.8, Magnesium Level 2.0, Salicylates Level 24.8H 11/18/22 06:11: Glucometer 87 11/18/22 07:19: Glucometer 85 11/18/22 08:07: Glucometer 85 Home Meds Active Ondansetron Odt (Ondansetron) 4 Mg Tab.rapdis 4 Mg SL Q4H PRN Protonix (Pantoprazole Sodium) 40 Mg Tablet.dr 40 Mg PO DAILY Cephalexin 500 Mg Tablet 500 Mg PO QID Mupirocin 2 % Oint...g. 22 Gm TP BID Sucralfate 1 Gram Tablet 1 Gm PO ACHS 7 Days Ondansetron Odt (Ondansetron) 4 Mg Tab.rapdis 4 Mg SL Q4H PRN 3 Days Ondansetron Odt (Ondansetron) 4 Mg Tab.rapdis 4-8 Mg PO Q6H PRN Ondansetron Odt (Ondansetron) 4 Mg Tab.rapdis 4-8 Mg PO Q6H PRN Ventolin Hfa (Albuterol Sulfate) 18 Gm Hfa.aer.ad 18 Gm IH Q4H PRN 30 Days Reported Invega Sustenna (Paliperidone Palmitate) 156 Mg/1 Ml Syringe 156 Mg IM MONTHLY Assessment/Pt DC Instructions Follow up with primary provider within two weeks. Follow up with mental health as directed. Discharge Diet: No Restrictions Activity as Tolerated: Yes Discharge Physical Examination Allergies: Coded Allergies: No Known Drug Allergies (Unverified , 01/12/09) General Appearance: No Apparent Distress, WD/WN Respiratory: Lungs Clear, Normal Breath Sounds Cardiovascular: Regular Rate, Rhythm, No Murmur Extremity: No Pedal Edema Skin: Normal Color, Warm/Dry Neurologic/Psychiatric: Alert, Normal Mood/Affect ROSALIE DAVALOS MD Nov 18, 2022 14:36
[2022-11-18] MEDS ORDERED: PALI234D IM (14:41)
[2022-11-18 16:34] VITALS: BP 113/73
== END 2022-11-18 16:50 | disposition home or self-care (01) | DRG 918 ==
LOC: EDUNIT# 13:42 → ER 13:44 → ICU 20:48
PROVIDERS: ADMIT Family Medicine; ATTEND Family Medicine
DX: T39.012A Poisoning by aspirin, intentional self-harm, initial encounter (principal); E87.3 Alkalosis; F25.0 Schizoaffective disorder, bipolar type; J45.909 Unspecified asthma, uncomplicated; K21.9 Gastro-esophageal reflux disease without esophagitis; F90.9 Attention-deficit hyperactivity disorder, unspecified type; F63.9 Impulse disorder, unspecified; F41.9 Anxiety disorder, unspecified; F17.210 Nicotine dependence, cigarettes, uncomplicated; Z79.899 Other long term (current) drug therapy
CPT/HCPCS: 36415; 71045; 80048; 80053; 80306; 80320; 80329; 81000; 82805; 82947; 83735; 84100; 85025; 85610; 85730; 87081; 93005